=== PATIENT | male | born 1945 | race Caucasian/White ===

== ENCOUNTER 2018-07-17 17:29 | Inpatient (IN) | payer MEDICARE, MEDICAID, SELFPAY ==
[2018-07-17] VITALS (42 sets, daily range): BP systolic 104–192; BP diastolic 61–131; PULSE 73–103; RESP 8–30; TEMP 36.6; O2SAT 92–100
--- NOTE | 2018-07-17 17:35 | ED.GENADUL_ITS ---
Discharge Plan Disposition Patient Disposition: [facility] INPATIENT Condition: Stable Discharge Details Chief Complaint: SOB Clinical Impression: Acute CHF, NSTEMI (non-ST elevated myocardial infarction), Bilateral pleural effusion Admit Date/Time: 07/17/18 22:49 Admit Provider: Jamison Bustamante Attending Provider: Jamison Bustamante Primary Care Provider: Zeina Lizama V ED Provider: Cj Nguyen Discharge Data Discharge Date/Time-TO BE ENTERED AT DEPARTURE: 07/17/18 23:45 Medical Decision Making <Chrissy Stark DO - Last Filed: 07/18/18 19:31> 73-year-old male with a history of asthma, coronary artery disease with OK and one cardiac stent from 2013, tongue carcinoma, pulmonary hypertension who presents the ED with a complaint of dyspnea on exertion and intermittent chest heaviness/pressure over the past 6 days. Admits to some mild substernal chest heaviness at this time. Sent by PCP office for hypoxia of 88% on room air in the office today. Oxygen saturation good since arrival to the ED, 99% on room air. Blood pressure hypertensive 179/103. Patient has not yet taken his metoprolol. He is afebrile. He appears nontoxic. He is speaking in full sentences and has no evidence of respiratory distress. He has no lower extremity edema. Differential diagnosis includes OK, CHF, pneumonia, electrolyte abnormality, arrhythmia. EKG notes a rate of 98, sinus, T wave inversion in 3 and V6 and less than [address] depression in aVF which is been seen in previous. No acute ST elevation. 183 --labs and imaging reviewed. Troponin 0.39. BNP 2275. Chest x-ray notes a worsening and a left-sided pleural effusion as well as blunting of right-sided costophrenic angle. Will call [facility] for NSTEMI/acute CHF. Will give a dose of Lasix and aspirin. He is chest pain free at this time. 184 --discussed with [facility] -no beds available. Will call [facility]. 1854 --d/w [facility] cardiology -recommends admission here for serial troponins. If going to treat for an NSTEMI, recommends heparin bolus and drip. Recommends repeat troponin to see where trending and can transfer if significantly elevated. 1999 --d/w [facility] cardiology - can accept pt for transfer to [facility] but not for 12-[address] Whelan. Agrees with plan for heparin bolus/gtt. Echo 2013 EF 45%. 1999 --case endorsed to Dr. Nguyen to f/u on second troponin and EKG at 9 PM and for final disposition pending these results. Medical Records Medical records reviewed: Yes I reviewed the patient's medical records. Imaging Data Radiologic Study: Radiologist's impression: XR Chest, 2 Views EXAM DATE/TIME: 07/17/2018 5:34 PM FINDINGS: Lungs: Bibasilar opacities with nonvisualization of the hemidiaphragms. Bilateral pleural effusions. Aerated lungs clear of infiltrates. Pleural space: See Lungs Finding. Heart/Mediastinum: Unremarkable. No cardiomegaly. Bones/joints: Dextroscoliosis of the thoracic spine. Degenerative changes within thoracic spine. IMPRESSION: Bilateral pleural effusions. Associated lower lungs infiltrates cannot be ruled out. Likely elevation of the left hemidiaphragm. Stable marked dextroscoliosis of the thoracic spine. Lab Data Lab results reviewed: Yes I reviewed the patient's lab results. ECG Data Attestation: I personally reviewed and interpreted this ECG (s) as follows: Interpretation: Rate of 98, sinus, no acute ST elevation. Questionable less than [address] depression in aVF which is been seen in previous EKG. T wave inversion in 3 and V6 which is been seen in previous. <Cj Nguyen MD - Last Filed: 07/17/18 21:55> Patient signed out to me pending second EKG and troponin. Second EKG continues to have no acute ST changes. Possible transitioning of QRS in the inferior leads from upright to inversion. Patient's vitals are better. Patient chest pain-free here and has not had any chest pain here. He has put out over a liter since receiving Lasix. Second troponin remains indeterminate at 0.44. He is on heparin. Case discussed with hospitalist. He will be in to admit the patient to ICU overnight to be held for transfer to [facility] tomorrow. Lab Data Lab results reviewed: Yes I reviewed the patient's lab results. ECG Data Attestation: I personally reviewed and interpreted this ECG (s) as follows: Prior ECG tracings: available for review Interpretation: Second EKG is sinus rhythm at 78. The for morphology has changed completely which I cannot explain. There are no acute ST changes. There remains nonspecific ST flattening. If anything V3 looks better than earlier tonight. Possible transitioning in the inferior leads as the QRS appears to be getting smaller. HPI <Chrissy Stark, - Last Filed: 07/18/18 19:31> General Mode of arrival: ambulatory . Date/Time Provider Initiated Documentation: 07/17/18 17:33 . Limitations to Documentation: no limitations . Information obtained by: patient . HPI Narrative: Patient is a 73-year-old male with history of coronary artery disease with one coronary artery stent, myocardial infarction in 2013, pulmonary hypertension, tongue carcinoma, asthma who presents to the ED with complaint of dyspnea on exertion for the past 6 days. He admits to intermittent chest heaviness. He states he feels like he cannot take a deep breath. He states he had been taking in more sodium and admits to an 8 pound weight gain over the past week which has improved by 4 pounds after decreasing sodium in his diet. He states his last stress test was 3 years ago and negative. He admits to intermittent hypertension over the past week. He denies any fever and states he has been eating and drinking normally without any nausea or vomiting. He denies any leg pain or swelling, recent travel, recent surgery or coughing. Patient states he is followed by Dr. Mckeon cold meat cook at [facility] and states he has a follow-up appoint with him next week. He was seen by his primary care doctor for the symptoms today and was noted to have an oxygen saturation of 88% on room air in the office and was sent to the ER for further evaluation. They were unable to obtain an EKG in the office today. Related Data Home Medications Medication Instructions Recorded Confirmed B-Complex 1 ea PO DAILY 07/11/12 07/17/18 aspirin 81 mg PO DAILY 07/11/12 07/17/18 lorazepam 0.5 mg PO BID PRN PRN 07/11/12 07/17/18 [place]-Mag 1 ea PO DAILY 04/02/16 07/17/18 [place] Extract (w-zinc) 1 ea PO DAILY 04/02/16 07/17/18 Zyrtec 10 mg PO HS PRN PRN 04/02/16 07/17/18 albuterol sulfate [ProAir HFA] 2 puff INHALATION Q4H PRN PRN 04/02/16 07/17/18 beta carotene 25,000 unit PO DAILY 04/02/16 04/03/16 cholecalciferol (vitamin D3) 1,000 unit PO DAILY 04/02/16 07/17/18 [Vitamin D3] coenzyme [id number] E 1 ea PO DAILY 04/02/16 07/17/18 metoprolol succinate 50 mg PO BID 04/02/16 07/17/18 multivitamin [Multi-Day] 2 ea PO DAILY 04/02/16 07/17/18 nitroglycerin [Nitrostat] 0.4 mg SUBLINGUAL DIRECTED 04/02/16 07/17/18 omega-3 fatty acids-fish oil [Fish 1 ea PO DAILY 04/02/16 07/17/18 Oil] vitamin E 400 unit PO DAILY 04/02/16 07/17/18 acetaminophen [Mapap Extra 500 mg PO PRN PRN 04/03/16 04/03/16 Strength] Allergies Allergy/AdvReac Type Severity Reaction Status Date / Time carvedilol Allergy Unverified 07/17/18 18:07 Review of Systems <Chrissy Stark DO - Last Filed: 07/18/18 19:31> Review of Systems All systems reviewed & are unremarkable except as noted in HPI and below Constitutional Reports as per HPI, Denies chills and Denies fever(s) Eyes Denies blurry vision ENT Denies dizziness, Denies sore throat and Denies throat swelling Cardiovascular Reports chest pain and Reports dyspnea Respiratory Denies cough and Reports dyspnea Gastrointestinal Denies abdominal pain, Denies diarrhea and Denies vomiting Genitourinary Denies hematuria and Denies dysuria Musculoskeletal Denies back pain and Denies numbness Integumentary/Breasts Denies lesions and Denies rash Neurologic Denies dizziness, Denies focal weakness and Denies numbness Allergic/Immunologic Denies throat swelling PFSH <Chrissy Stark DO - Last Filed: 07/18/18 19:31> Medical History Hx of cardiac arrest (Resolved) Hx of tongue cancer (Resolved) Right carotid artery occlusion (Chronic) Hx of intrinsic asthma (Chronic) Hx of atrial flutter (Resolved) HTN (hypertension) (Chronic) CAD S/P percutaneous coronary angioplasty (Chronic) Acute kidney injury (Acute) Elevated troponin (Acute) CHF (congestive heart failure) (Acute) Cardiomyopathy (Acute) Dyspnea on exertion (Acute) Elevated LFTs (Acute) History of tobacco use (Acute) Hyperlipemia (Acute) Left knee pain (Acute) Malignant neoplasm (Acute) Pleural effusion, left (Acute) Anxiety (Chronic) Asthma (Chronic) BPH (benign prostatic hyperplasia) (Chronic) Myocardial infarction (Chronic) Psoriasis (Chronic) Acute myocardial infarction Chronic obstructive lung disease Coronary arteriosclerosis Surgical History History of total right hip arthroplasty (Acute) Colonoscopy - MAC (04/03/16) Coronary Stent EGD - MAC tracheostomy Family History Mother Chronic congestive heart failure Father Personal history of malignant neoplasm Social History Smoking/Tobacco Use Status: Former Tobacco Use Alcohol Intake: former Drug use: Never Substance use type: does not use, former substance user Date of last use: 30 years and crack/cocaine Household members: none Housing: house current occupation: retired [employer] Pets and animals: Yes Do you feel safe at home: Yes Do you feel safe in your relationship?: Yes Exam <Chrissy Stark DO - Last Filed: 07/18/18 19:31> Const General: cooperative, healthy appearing and no acute distress HENMT Head: normal to inspection Face and sinus: normal facial exam Eyes General: appearance normal, both eyes and all related structures EOM: EOM intact bilaterally Neck Neck: normal visual inspection and No submandibular swelling Lymphatic: no lymphadenopathy noted Chest Chest: normal inspection of the chest and no tenderness Resp Effort & Inspection: normal respiratory effort and able to speak in complete sentences Auscultation: diminished lung sounds bilaterally in the lower lung cheung (bases b/l ) Cardio Rate: regular rate Rhythm: regular rhythm GI Inspection: normal to inspection Palpation: soft, not firm, not rigid and nontender Auscultation: normal bowel sounds Skin General skin exam: no rashes or lesions noted Neuro General: alert, awake and oriented x3 Cognition: normal cognition Speech: speech normal Motor: muscle tone normal throughout Sensory Exam: no sensory deficits noted Extrem General: normal to inspection, full ROM, no calf tenderness bilaterally and no edema Psych Appearance: grossly normal Mental Status: mental status grossly normal Speech and Movement: speech and movement normal Affect: normal affect Sign Out <Chrissy Stark DO - Last Filed: 07/18/18 19:31> Sign Out Data: Sign Out Comment: Follow-up on second troponin at 9 PM and final disposition. Last updated by Chrissy Stark DO at 07/17/18 19:46
[2018-07-17 18:14] LABS: Abs Immature Grans 0.01 k/cumm (0.0-0.09); Absolute Basophil Count 0.02 k/cumm (0.0-0.2); Absolute Eosinophil Count 0.11 k/cumm (0.0-0.7); Absolute Lymphocyte Count 0.93 k/cumm (1.2-3.4); Absolute Monocyte Count 0.53 k/cumm (0.11-0.7); Absolute Neutrophil Count 3.61 k/cumm (1.2-6.7); Basophils % 0.4; Eosinophils % 2.1; HCT 51.2 % (40.0-50.0); HGB 16.4 g/dL (13.5-17.5); Immature Grans % 0.2; Lymphocytes % 17.9; Mean Corpuscular Hemoglobin 31.2 pg (27.0-33.0); Mean Corpuscular Volume 97.3 fL (80-95); Monocytes % 10.2; Neutrophils % 69.2; Platelet Count 173 x1000/uL (130-400); RBC 5.26 m/cumm (4.50-6.00); RBC Distribution Width 14.1 % (11.8-14.1); White Blood Cell Count 5.21 k/cumm (4.4-10.8)
--- NOTE | 2018-07-17 18:18 | DI.RAD_ITS ---
SYMPTOM/DIAGNOSIS: DYSPNEA ON EXERTION, ? CHF PA AND LATERAL CHEST: The examination is compared with previous examination of 03/06/13. There are bilateral pleural effusions on today's examination. Pleural effusion was noted on the left on the previous examination. Diaphragm may be elevated today. The lungs are grossly clear. Cardiac size is difficult to determinate due to elevation of the diaphragm. CONCLUSION: Bilateral pleural effusions, etiology uncertain. Correlation requested regarding the possibility of CHF. If the findings do not resolve, additional evaluation with chest CT may be considered.
[2018-07-17] MEDS: Metoprolol 50 MG TAB PO (18:28)
[2018-07-17 18:32] LABS: ALT 74 U/L (12-78); AST 45 U/L (15-37); Alkaline Phosphatase 86 U/L (46-116); BUN 23 mg/dL (7-18); CREATININE 1.34 mg/dL (0.70-1.30); Calcium 9.5 mg/dL (8.5-10.1); Chloride 98 mmol/L (98-107); Glucose 110 mg/dL (70-100); NT-proBNP 2275 pg/mL; Potassium 4.4 mmol/L (3.5-5.1); Sodium 138 mmol/L (136-145); Total Protein 8.1 g/dL (6.4-8.2)
[2018-07-17 18:34] LABS: Troponin I 0.39 ng/mL (0.00-0.06)
[2018-07-17] MEDS: Aspirin 325 MG TAB PO (18:40)
[2018-07-17] MEDS: Furosemide 40 MG/4 ML VIAL IVP (18:40)
--- NOTE | 2018-07-17 18:55 | DI.VRAD_ITS ---
EXAM: XR Chest, 2 Views EXAM DATE/TIME: 07/17/2018 5:34 PM CLINICAL HISTORY: 73 years old, male; Signs and symptoms; Patient HX: Dyspnea on exertion R/O acute disease chf; Additional info: HX head/neck CA TECHNIQUE: Imaging protocol: XR of the chest, 2 views. COMPARISON: CR CHEST 2 VIEWS PA,LAT 03/05/2013 10:57 AM FINDINGS: Lungs: Bibasilar opacities with nonvisualization of the hemidiaphragms. Bilateral pleural effusions. Aerated lungs clear of infiltrates. Pleural space: See Lungs Finding. Heart/Mediastinum: Unremarkable. No cardiomegaly. Bones/joints: Dextroscoliosis of the thoracic spine. Degenerative changes within thoracic spine. IMPRESSION: Bilateral pleural effusions. Associated lower lungs infiltrates cannot be ruled out. Likely elevation of the left hemidiaphragm. Stable marked dextroscoliosis of the thoracic spine. Dictated and Authenticated by: Pato Greenfield MD. Ordering:NABEEL Lowe MD
[2018-07-17] MEDS: Clopidogrel 300 MG TAB PO (19:07)
[2018-07-17 19:28] LABS: INR 0.9 (0.9-1.1); PTT Activated 23.2 sec (21.0-31.4); Prothrombin Time 9.4 sec (9.3-11.0)
[2018-07-17] MEDS: Heparin 5,000 UNITS/ML VIAL 4000 UNITS IV (20:24)
[2018-07-17 21:46] LABS: Troponin I 0.44 ng/mL (0.00-0.06)
--- NOTE | 2018-07-17 22:02 | NUR.NOTE ---
Nursing Note: got pt a meal tray with salad, dandwich chips and water
--- NOTE | 2018-07-17 23:20 | W.PM.HP.N ---
Date of service: 07/17/18 Time of Service: 23:21 Assessment and Plan (1) CHF (congestive heart failure): Current visit: Yes Status: Acute Clinical presentation of CHF with history of mild impairment of LV function on last echocardiogram March 2017. Probably has ischemic cardiomyopathy. No recent symptoms to suggest a new ischemic event but does have indeterminate troponins. ECG with no acute ischemic changes. History does not suggest an infectious etiology for cardiomyopathy. He is on multiple supplements that he has been on for years and I doubt drug related or toxin related cardiomyopathy. He has a past history of atrial flutter with no known recent recurrences, its possible he has had a tachyarrhythmia causing cardiomyopathy. Blood pressure recently elevated but historically has been under good control and hypertensive cardiomyopathy seems unlikely. Doubt he has infiltrative process. Diagnostically will cycle troponins and monitor heart rhythm. Order echocardiogram for tomorrow. Therapeutically will place on full anticoagulation with heparin aspirin and he received a loading dose of clopidogrel. Continue metoprolol at outpatient dose. He received 40 mg of Lasix IV in the ER with good diuretic response. I will plan on re-dosing him again tomorrow morning. Possible transfer to tertiary center depending upon clinical course and troponins. Cardiology consult placed, may end up canceling if he goes to tertiary center. (2) Elevated troponin: Current visit: Yes Status: Acute No anginal symptoms. Unclear if this is because of heart failure or result of heart failure. Management as above. (3) Acute kidney injury: Current visit: Yes Status: Acute I suspect this is prerenal. Check urinalysis. Recheck BUN and creatinine in the morning. (4) CAD S/P percutaneous coronary angioplasty: Current visit: Yes Status: Chronic No anginal symptoms. Reports last stress test about 3 years ago with no indication, per patient report, of reversible ischemia. He does not want to take a statin. I am holding his fish oil to minimize bleeding risk and poor evidence of any efficacy. Management otherwise as above. (5) HTN (hypertension): Current visit: Yes Status: Chronic Elevated on admission to the ER, better after he received Lasix and metoprolol. Follow with current regimen. Depending upon troponin trend and echocardiogram, addition of LANRE inhibitor may be beneficial. (6) Hx of atrial flutter: Current visit: No Status: Resolved No known recurrences. Monitor heart rhythm on telemetry. He is being anticoagulated with heparin because of concern for acute coronary syndrome. (7) Anxiety: Current visit: Yes Status: Chronic I am placing lorazepam on hold for now. Monitor for symptoms. History of Present Illness Chief Complaint: Fatigue, dyspnea with exertion Narrative: Mr. Noland is a 73-year-old man who presented to his primary care provider at the recommendation of his cardiology office at [facility] because of feeling fatigued and short of breath with exertion over the past 5 to 7 days. [address] had an [address] elevation RI in 2012, stenting of single vessel (LAD? RCA? Patient is not sure and records are unavailable at this time). Hospital course at [facility] was complicated by acute congestive heart failure, asystole with cardiac arrest, ventilator associated pneumonia, aspiration pneumonia. He was hospitalized for about 6 weeks and then discharged to rehab facility before returning home. He has had a chronic left pleural effusion since this event. He has a remote history of asthma. His last echocardiogram was in March 2012 at [facility]. (All cardiac studies were done at [facility], followed by Dr. Sweet until he retired. Recently establish care with Dr. Mckeon at [facility]). His echocardiogram showed LVEF of 45%, 2+ mitral insufficiency mild dilatation of the aorta, regional wall motion abnormalities of the posterior, lateral and inferior diaz and a small pleural effusion. He had a stress test about 3 years ago which he reports did not show any evidence of new ischemia. Without any recent fevers chills upper respiratory symptoms, cough, wheeze, chest pain pleuritic or anginal in nature, he noted over the past week a general fatigue and malaise, a little bit of mental foggy feeling and most troublesome over the past few days worsening dyspnea with exertion. He also had gained about 8 pounds over a week which she attributes to increased salt intake. He had decreased his salt intake and dropped about 4 pounds. He never had peripheral edema or orthopnea or PND. He has not slept well the past 2 nights with a general sense of restlessness but not because of shortness of breath or chest pain. He has had no decrease in urinary frequency or volume. No hematuria. No recent travel. No change in any of his prescribed medication or multiple supplements. Reports 2 episodes of gastroenteritis in April each lasting about a week but completely resolved. No recent travel. Former alcohol and cocaine use but it is been many decades since he has used either. Quit smoking in 1992. Unaware of any palpitations. Outpatient notes indicate he had a flutter at the time of his RI, no known recurrence of any dysrhythmias. No known history of thyroid disease. Upon presentation to the emergency room he was in no acute respiratory distress. His oxygen saturations reported from his outpatient office visit were 88%. In the ER somewhat variable with room air oxygen saturation sometimes in the mid 90s sometimes upper 80s, stable in the low 90s to mid 90s on oxygen. His chest x-ray showed bilateral small pleural effusions on a chronic left lower hemithorax opacification. His ECG did not show any changes from 2013. His opponents have been in the indeterminate area and his BNP is elevated. He had an excellent diuretic response to 40 mg of IV Lasix and subjectively felt much better. No dysrhythmias have been captured on the monitor since he has arrived in the ER. Both [facility] and [facility] were contacted by ER for possible transfer but given stability and lack of beds in those facilities he is being admitted here for further diagnostic evaluation and treatment. Review of Systems Review of Systems All systems reviewed & are unremarkable except as noted in HPI and below [facility] Medical History Acute kidney injury (Acute) Elevated troponin (Acute) CHF (congestive heart failure) (Acute) Cardiomyopathy (Acute) Dyspnea on exertion (Acute) Elevated LFTs (Acute) History of tobacco use (Acute) Hyperlipemia (Acute) Left knee pain (Acute) Malignant neoplasm (Acute) Pleural effusion, left (Acute) Anxiety (Chronic) Asthma (Chronic) BPH (benign prostatic hyperplasia) (Chronic) Myocardial infarction (Chronic) Psoriasis (Chronic) Acute myocardial infarction Chronic obstructive lung disease Coronary arteriosclerosis Surgical History History of total right hip arthroplasty (Acute) Colonoscopy - MAC (04/03/16) Coronary Stent EGD - MAC tracheostomy Family History Mother Chronic congestive heart failure Father Personal history of malignant neoplasm Social History Smoking/Tobacco Use Status: Former Tobacco Use Alcohol Intake: former Drug use: Never Substance use type: does not use, former substance user Date of last use: 30 years and crack/cocaine 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 Meds Home Medications Medication Instructions Recorded Confirmed Type aspirin 81 mg PO DAILY 07/11/12 07/17/18 History lorazepam 0.5 mg PO BID PRN PRN 07/11/12 07/17/18 History vit B comp with C-calcium carb 1 ea PO DAILY 07/11/12 07/17/18 History [Gnp B-Complex Tablet] albuterol sulfate [Proair Hfa] 2 puff INHALATION Q4H PRN PRN 04/02/16 07/17/18 History beta carotene 25,000 unit PO DAILY 04/02/16 04/03/16 History calcium carb-magnesium ox,carb 1 ea PO DAILY 04/02/16 07/17/18 History [Sheldon-Mag Tablet Chewable] cetirizine [Zyrtec] 10 mg PO HS PRN PRN 04/02/16 07/17/18 History cholecalciferol (vitamin D3) 1,000 unit PO DAILY 04/02/16 07/17/18 History [Vitamin D3] coenzyme [id number] E 1 ea PO DAILY 04/02/16 07/17/18 History metoprolol succinate 50 mg PO BID 04/02/16 07/17/18 History multivitamin [Multi-Day Vitamins] 2 ea PO DAILY 04/02/16 07/17/18 History nitroglycerin [Nitrostat] 0.4 mg SUBLINGUAL DIRECTED 04/02/16 07/17/18 History omega-3 fatty acids-fish oil [Fish 1 ea PO DAILY 04/02/16 07/17/18 History Oil 1,000 mg Capsule] saw palmto frt xtr-zinc [place] 1 ea PO DAILY 04/02/16 07/17/18 History [Saw [place] Capsule] vitamin E 400 unit PO DAILY 04/02/16 07/17/18 History acetaminophen [Tylenol Extra 500 mg PO PRN PRN 04/03/16 04/03/16 History Strength] Allergies Allergy/AdvReac Type Severity Reaction Status Date / Time carvedilol Allergy Unverified 07/17/18 18:07 Exam Narrative Exam Narrative: Sitting up in bed oxygen on eating a sandwich she is in no acute distress. Sinus rhythm on telemetry, blood pressures have come down into the 120s systolic pulse rate in the 70-80 range SaO2 in the mid 90% range on 2 L. Pupils are equal and reactive extraocular movements are normal. Pharynx has some mild posterior pharyngeal erythema no masses visible. No cervical adenopathy. I do not hear a bruit in either carotid. No supraclavicular adenopathy. At 45 degrees recumbency jugular venous pulsations present at the lower neck. Lungs have absent breath sounds at the left lower lung field, a few crackles at the right base, clear in the upper lung cheung no wheezing or rub. Regular heart rhythm with no S3-S4 or murmur heard. Bowel sounds are active with nontender abdomen and no HJR. Rectal and pelvic exams were not done. Extremities warm with 1+ pulses in both feet. No edema. He has symmetric movement of all extremities. No DTRs at the knees 1+ at the elbows symmetrically. He transfers independently without ataxia. He is oriented x4. Results Chest x-ray with bilateral pleural effusions, chronic opacification left lower hemithorax. EKG sinus rhythm with nonspecific and unchanged ST-T changes in the inferior and lateral leads. Labs : 07/17/18 18:05 07/17/18 18:05 Laboratory Results - last 24 hr 07/17/18 07/17/18 07/17/18 18:05 18:05 18:05 WBC 5.21 RBC 5.26 Hgb 16.4 Hct 51.2 H MCV 97.3 H MCH 31.2 MCHC 32.0 RDW 14.1 Plt Count 173 MPV 10.0 Immature Gran % 0.2 Neutrophils % 69.2 Lymphocytes % 17.9 Monocytes % 10.2 Eosinophils % 2.1 Basophils % 0.4 Absolute Neutrophils 3.61 Absolute Lymphocytes 0.93 L Absolute Monocytes 0.53 Absolute Eosinophils 0.11 Absolute Basophils 0.02 PT 9.4 INR 0.9 APTT 23.2 Sodium 138 Potassium 4.4 Chloride 98 Carbon Dioxide 35.0 H Anion Gap 5.0 BUN 23 H Creatinine 1.34 H Estimated GFR/1.73 m2 52.40 Glucose 110 H Calcium 9.5 Magnesium 2.0 Total Bilirubin 1.0 AST 45 H ALT 74 Alkaline Phosphatase 86 Troponin I 0.39 H* NT-Pro-B Natriuret Pep 2275 H Total Protein 8.1 Albumin 4.0 07/17/18 21:15 WBC RBC Hgb Hct MCV MCH MCHC RDW Plt Count MPV Immature Gran % Neutrophils % Lymphocytes % Monocytes % Eosinophils % Basophils % Absolute Neutrophils Absolute Lymphocytes Absolute Monocytes Absolute Eosinophils Absolute Basophils PT INR APTT Sodium Potassium Chloride Carbon Dioxide Anion Gap BUN Creatinine Estimated GFR/1.73 m2 Glucose Calcium Magnesium Total Bilirubin AST ALT Alkaline Phosphatase Troponin I 0.44 H* NT-Pro-B Natriuret Pep Total Protein Albumin Last Vital Signs Temp 36.6 C 07/17/18 17:36 Pulse 79 07/17/18 21:30 Resp 14 07/17/18 21:31 BP 157/89 H 07/17/18 21:30 Pulse Ox 100 07/17/18 21:31
--- NOTE | 2018-07-17 23:54 | HPE_ITS ---
Date of service: 07/17/18 Time of Service: 23:21 Assessment and Plan (1) CHF (congestive heart failure): Current visit: Yes Status: Acute Clinical presentation of CHF with history of mild impairment of LV func tion on last echocardiogram March 2017. Probably has ischemic cardiomyopathy. No recent symptoms to suggest a new ischemic event but does have indeterminate troponins. ECG with no acute ischemic changes. History does not suggest an infectious etiology for cardiomyopathy. He is on multiple supplements that he has been on for years and I doubt drug related or toxin related cardiomyopathy. He has a past history of atrial flutter with no known recent recurrences, its possible he has had a tachyarrhythmia causing cardiomyopathy. Blood pressure recently elevated but historically has been under good control and hypertensive cardiomyopathy seems unlikely. Doubt he has infiltrative process. Diagnostically will cycle troponins and monitor heart rhythm. Order echocardiogram for tomorrow. Therapeutically will place on full anticoagulation with heparin aspirin and he received a loading dose of clopidogrel. Continue metoprolol at outpatient dose. He received 40 mg of Lasix IV in the ER with good diuretic response. I will plan on re-dosing him again tomorrow morning. Possible transfer to tertiary center depending upon clinical course and troponins. Cardiology consult placed, may end up canceling if he goes to tertiary center. (2) Elevated troponin: Current visit: Yes Status: Acute No anginal symptoms. Unclear if this is because of heart failure or result of heart failure. Management as above. (3) Acute kidney injury: Current visit: Yes Status: Acute I suspect this is prerenal. Check urinalysis. Recheck BUN and creatinine in the morning. (4) CAD S/P percutaneous coronary angioplasty: Current visit: Yes Status: Chronic No anginal symptoms. Reports last stress test about 3 years ago with no indication, per patient report, of reversible ischemia. He does not want to take a statin. I am holding his fish oil to minimize bleeding risk and poor evidence of any efficacy. Management otherwise as above. (5) HTN (hypertension): Current visit: Yes Status: Chronic Elevated on admission to the ER, better after he received Lasix and metoprolol. Follow with current regimen. Depending upon troponin trend and echocardiogram, addition of LANRE inhibitor may be beneficial. (6) Hx of atrial flutter: Current visit: No Status: Resolved No known recurrences. Monitor heart rhythm on telemetry. He is being anticoagulated with heparin because of concern for acute coronary syndrome. (7) Anxiety: Current visit: Yes Status: Chronic I am placing lorazepam on hold for now. Monitor for symptoms. History of Present Illness Chief Complaint: Fatigue, dyspnea with exertion Narrative: Mr. Noland is a 73-year-old man who presented to his primary care provider at the recommendation of his cardiology office at [facility] because of feeling fatigued and short of breath with exertion over the past 5 to 7 days. [address] had an [address] elevation [place] in 2012, stenting of single vessel (LAD? RCA? Patient is not sure and records are unavailable at this time). Hospital course at [facility] was complicated by acute congestive heart failure, asystole with cardiac arrest, ventilator associated pneumonia, aspiration pneumonia. He was hospitalized for about 6 weeks and then discharged to rehab facility before returning home. He has had a chronic left pleural effusion since this event. He has a remote history of asthma. His last echocardiogram was in March 2012 at [facility]. (All cardiac studies were done at [facility], followed by Dr. Sweet until he retired. Recently establish care with Dr. Mckeon at [facility]). His echocardiogram showed LVEF of 45%, 2+ mitral insufficiency mild dilatation of t he aorta, regional wall motion abnormalities of the posterior, lateral and inferior diaz and a small pleural effusion. He had a stress test about 3 years ago which he reports did not show any evidence of new ischemia. Without any recent fevers chills upper respiratory symptoms, cough, wheeze, malachi st pain pleuritic or anginal in nature, he noted over the past week a general fatigue and malaise, a little bit of mental foggy feeling and most troublesome over the past few days worsening dyspnea with exertion. He also had gained about 8 pounds over a week which she attributes to increased salt intake. He had decreased his salt intake and dropped about 4 pounds. He never had peripheral edema or orthopnea or PND. He has not slept well the past 2 nights with a general sense of restlessness but not because of shortness of breath or chest pain. He has had no decrease in urinary frequency or volume. No hematuria. No recent travel. No change in any of his prescribed medication or multiple supplements. Reports 2 episodes of gastroenteritis in April each lasting about a week but completely resolved. No recent travel. Former alcohol and cocaine use but it is been many decades since he has used either. Quit smoking in 1992. Unaware of any palpitations. Outpatient notes indicate he had a flutter at the time of his DE, no known recurrence of any dysrhythmias. No known history of thyroid disease. Upon presentation to the emergency room he was in no acute respiratory distress. His oxygen saturations reported from his outpatient office visit were 88%. In the ER somewhat variable with room air oxygen saturation sometimes in the mid 90s sometimes upper 80s, stable in the low 90s to mid 90s on oxygen. His chest x-ray showed bilateral small pleural effusions on a chronic left lower hemithorax opacification. His ECG did not show any changes from 2013. His opponents have been in the indeterminate area and his BNP is elevated. He had an excellent diuretic response to 40 mg of IV Lasix and subjectively felt much better. No dysrhythmias have been captured on the monitor since he has arrived in the ER. Both [facility] and [facility] were contacted by ER for possible transfer but given stability and lack of beds in those facilities he is being admitted here for further diagnostic evaluation and treatment. Review of Systems Review of Systems All systems reviewed & are unremarkable except as noted in HPI and below PFSH Medical History Acute kidney injury (Acute) Elevated troponin (Acute) CHF (congestive heart failure) (Acute) Cardiomyopathy (Acute) Dyspnea on exertion (Acute) Elevated LFTs (Acute) History of tobacco use (Acute) Hyperlipemia (Acute) Left knee pain (Acute) Malignant neoplasm (Acute) Pleural effusion, left (Acute) Anxiety (Chronic) Asthma (Chronic) BPH (benign prostatic hyperplasia) (Chronic) Myocardial infarction (Chronic) Psoriasis (Chronic) Acute myocardial infarction Chronic obstructive lung disease Coronary arteriosclerosis Surgical History History of total right hip arthroplasty (Acute) Colonoscopy - MAC (04/03/16) Coronary Stent EGD - MAC tracheostomy Family History Mother Chronic congestive heart failure Father Personal history of malignant neoplasm Social History Smoking/Tobacco Use Status: Former Tobacco Use Alcohol Intake: former Drug use: Never Substance use type: does not use, former substance user Date of last use: 30 years and crack/cocaine 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 Meds Home Medications Medication Instructions Recorded Confirmed Type aspirin 81 mg PO DAILY 07/11/12 07/17/18 History lorazepam 0.5 mg PO BID PRN PRN 07/11/12 07/17/18 History vit B comp with C-calcium carb 1 ea PO DAILY 07/11/12 07/17/18 History [Gnp B-Complex Tablet] albuterol sulfate [Proair Hfa] 2 puff INHALATION Q4H PRN PRN 04/02/16 07/17/18 History beta carotene 25,000 unit PO DAILY 04/02/16 04/03/16 History calcium carb-magnesium ox,carb 1 ea PO DAILY 04/02/16 07/17/18 History [Sheldon-Mag Tablet Chewable] cetirizine [Zyrtec] 10 mg PO HS PRN PRN 04/02/16 07/17/18 History cholecalciferol (vitamin D3) 1,000 unit PO DAILY 04/02/16 07/17/18 History [Vitamin D3] coenzyme [id number] 1 ea PO DAILY 04/02/16 07/17/18 History metoprolol succinate 50 mg PO BID 04/02/16 07/17/18 History multivitamin [Multi-Day Vitamins] 2 ea PO DAILY 04/02/16 07/17/18 History nitroglycerin [Nitrostat] 0.4 mg SUBLINGUAL DIRECTED 04/02/16 07/17/18 History omega-3 fatty acids-fish oil [Fish 1 ea PO DAILY 04/02/16 07/17/18 History Oil 1,000 mg Capsule] saw palmto frt xtr-zinc [place] 1 ea PO DAILY 04/02/16 07/17/18 History [Saw [place] Capsule] vitamin E 400 unit PO DAILY 04/02/16 07/17/18 History acetaminophen [Tylenol Extra 500 mg PO PRN PRN 04/03/16 04/03/16 History Strength] Allergies Allergy/AdvReac Type Severity Reaction Status Date / Time carvedilol Allergy Unverified 07/17/18 18:07 Exam Narrative Exam Narrative: Sitting up in bed oxygen on eating a sandwich she is in no acute distress. Sinus rhythm on telemetry, blood pressures have come down into the 120s systolic pulse rate in the 70-80 range SaO2 in the mid 90% range on 2 L. Pupils are equal and reactive extraocular movements are normal. Pharynx has some mild posterior pharyngeal erythema no masses visible. No cervical adenopathy. I do not hear a bruit in either carotid. No supraclavicular adenopathy. At 45 degrees recumbency jugular venous pulsations present at the lower neck. Lungs have absent breath sounds at the left lower lung field, a few crackles at the right base, clear in the upper lung cheung no wheezing or rub. Regular heart rhythm with no S3-S4 or murmur heard. Bowel sounds are active with nontender abdomen and no HJR. Rectal and pelvic exams were not done. Extremities warm with 1+ pulses in both feet. No edema. He has symmetric movem ent of all extremities. No DTRs at the knees 1+ at the elbows symmetrically. He transfers independently without ataxia. He is oriented x4. Results Chest x-ray with bilateral pleural effusions, chronic opacification left lower hemithorax. EKG sinus rhythm with nonspecific and unchanged ST-T changes in the inferior and lateral leads. Labs : 07/17/18 18:05 07/17/18 18:05 Laboratory Results - last 24 hr 07/17/18 07/17/18 07/17/18 18:05 18:05 18:05 WBC 5.21 RBC 5.26 Hgb 16.4 Hct 51.2 H MCV 97.3 H MCH 31.2 MCHC 32.0 RDW 14.1 Plt Count 173 MPV 10.0 Immature Gran % 0.2 Neutrophils % 69.2 Lymphocytes % 17.9 Monocytes % 10.2 Eosinophils % 2.1 Basophils % 0.4 Absolute Neutrophils 3.61 Absolute Lymphocytes 0.93 L Absolute Monocytes 0.53 Absolute Eosinophils 0.11 Absolute Basophils 0.02 PT 9.4 INR 0.9 APTT 23.2 Sodium 138 Potassium 4.4 Chloride 98 Carbon Dioxide 35.0 H Anion Gap 5.0 BUN 23 H Creatinine 1.34 H Estimated GFR/1.73 m2 52.40 Glucose 110 H Calcium 9.5 Magnesium 2.0 Total Bilirubin 1.0 AST 45 H ALT 74 Alkaline Phosphatase 86 Troponin I 0.39 H* NT-Pro-B Natriuret Pep 2275 H Total Protein 8.1 Albumin 4.0 07/17/18 21:15 WBC RBC Hgb Hct MCV MCH MCHC RDW Plt Count MPV Immature Gran % Neutrophils % Lymphocytes % Monocytes % Eosinophils % Basophils % Absolute Neutrophils Absolute Lymphocytes Absolute Monocytes Absolute Eosinophils Absolute Basophils PT INR APTT Sodium Potassium Chloride Carbon Dioxide Anion Gap BUN Creatinine Estimated GFR/1.73 m2 Glucose Calcium Magnesium Total Bilirubin AST ALT Alkaline Phosphatase Troponin I 0.44 H* NT-Pro-B Natriuret Pep Total Protein Albumin Last Vital Signs Temp 36.6 C 07/17/18 17:36 Pulse 79 07/17/18 21:30 Resp 14 07/17/18 21:31 BP 157/89 H 07/17/18 21:30 Pulse Ox 100 07/17/18 21:31
[2018-07-18] VITALS (26 sets, daily range): BP systolic 92–158; BP diastolic 56–85; PULSE 54–95; RESP 9–19; TEMP 36.9–37.4; O2SAT 84–99
[2018-07-18 02:34] LABS: PTT Activated 51.1 sec (21.0-31.4)
[2018-07-18 02:38] LABS: Troponin I 0.44 ng/mL (0.00-0.06)
[2018-07-18 07:03] LABS: HCT 46.3 % (40.0-50.0); HGB 14.8 g/dL (13.5-17.5); Mean Corpuscular Hemoglobin 31.4 pg (27.0-33.0); Mean Corpuscular Volume 98.1 fL (80-95); Platelet Count 162 x1000/uL (130-400); RBC 4.72 m/cumm (4.50-6.00); RBC Distribution Width 14.2 % (11.8-14.1); White Blood Cell Count 3.99 k/cumm (4.4-10.8)
--- NOTE | 2018-07-18 07:30 | MERGE_ITS ---
*[facility]* *[facility]* [address] [place] [address] Date of study: 07/18/2018 Transthoracic Echocardiography M-mode, complete 2D, complete spectral Doppler, and color Doppler *STUDY CONCLUSIONS* Summary: 1. Left ventricle: The cavity size was dilated. Wall thickness was normal. Systolic function was severely reduced. The estimated ejection fraction was 20-25%. Severe diffuse hypokinesis with regional variations. Akinesis of the inferolateral and inferior myocardium. 2. Right ventricle: The cavity size was mildly dilated. Systolic function was reduced. 3. Left atrium: The atrium was mildly dilated. 4. Mitral valve: There was moderate regurgitation. 5. Tricuspid valve: There was moderate regurgitation. 6. Pulmonary arteries: Pulmonary systolic pressure was increased, in the range of 50mm Hg to 55mm Hg. 7. Inferior vena cava: The vessel was patent and mildly dilated. The respirophasic diameter changes were in the normal range (greater than or equal to 50%), consistent with normal central venous pressure. 8. Pericardium, extracardiac: There was a right pleural effusion. There was a left pleural effusion. *PATIENT PRESENTATION* Height: 180.3cm ((71in) ) S/D Pressure: 110 / 69 Weight: 86.6kg ((190.6lb) ) BSA: 2.1m^2 Test start time: 07:40 AM. Test stop time: 08:40 AM. 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 This study was interpreted by [facility]. Pertinent images and digital data are archived for permanent storage and are available for subsequent review. No prior study was available for comparison. Study status: STAT. Transthoracic echocardiography. M-mode, complete 2D, complete spectral Doppler, and color Doppler. A Transthoracic Echocardiogram was performed. Scanning was performed from the parasternal, apical, subcostal, and suprasternal notch acoustic windows. Images were obtained using an [id number] cardiac ultrasound machine. Image quality was adequate. Study completion: The patient tolerated the procedure well. There were no complications. History: PMH: New onset CHF. *CARDIAC ANATOMY* Left ventricle: The cavity size was dilated. Wall thickness was normal. Systolic function was severely reduced. The estimated ejection fraction was 20-25%. Severe diffuse hypokinesis with regional variations. Regional wall motion abnormalities: Akinesis of the inferolateral and inferior myocardium. Aortic valve: Trileaflet; mildly thickened, mildly calcified leaflets. Mobility was not restricted. Doppler: Transvalvular velocity was within the normal range. There was no stenosis. There was no significant regurgitation. VTI ratio of LVOT to aortic valve: 0.81. Valve area (VTI): 2.4cm^2. Indexed valve area (VTI): 1.1cm^2/m^2. Peak velocity ratio of LVOT to aortic valve: 0.72. Valve area (Vmax): 2.1cm^2. Indexed valve area (Vmax): 1cm^2/m^2. Mean velocity ratio of LVOT to aortic valve: 0.74. Valve area (Vmean): 2.1cm^2. Indexed valve area (Vmean): 1cm^2/m^2. Mean gradient (S): 4.1mm Hg. Peak gradient (S): 7mm Hg. Aorta: Aortic root: The aortic root was normal in size. Ascending aorta: The ascending aorta was mildly dilated (41 mm). Mitral valve: Mildly thickened leaflets. Mobility was not restricted. Doppler: Transvalvular velocity was within the normal range. There was no evidence for stenosis. There was moderate regurgitation. Valve area by pressure half-time: 4.9cm^2. Indexed valve area by pressure half-time: 2.3cm^2/m^2. Peak gradient (D): 2.9mm Hg. Left atrium: The atrium was mildly dilated. Right ventricle: The cavity size was mildly dilated. Systolic function was reduced. Pulmonic valve: The pulmonary valve appears to be grossly normal. Doppler: Transvalvular velocity was within the normal range. There was no evidence for stenosis. There was mild regurgitation. Tricuspid valve: Structurally normal valve. Doppler: Transvalvular velocity was within the normal range. There was no evidence for stenosis. There was moderate regurgitation. Pulmonary artery: Poorly visualized. Pulmonary systolic pressure was increased, in the range of 50mm Hg to 55mm Hg. Right atrium: The atrium was normal in size. Pericardium: There was no significant pericardial effusion. Systemic veins: Inferior vena cava: Well visualized. The vessel was patent and mildly dilated. The respirophasic diameter changes were in the normal range (greater than or equal to 50%), consistent with normal central venous pressure. Pleura: There was a right pleural effusion. There was a left pleural effusion. Baseline ECG: Normal sinus rhythm. Measurements Left ventricle Value Reference LV ID, ED, PLAX (H) 6.2 cm 3.5 - 6.0 LV ID, ES, PLAX (H) 5.5 cm 2.1 - 4.0 LV PW thickness, ED, PLAX 0.7 cm LV end-diastolic volume, 1-p A2C 146 ml LV ejection fraction, 1-p A2C 18 % LV end-diastolic volume, 1-p A4C 138 ml LV ejection fraction, 1-p A4C 21 % LV e', lateral 0.084 m/sec LV E/e', lateral 10 LV e', medial 0.069 m/sec LV E/e', medial 12 LV e', average 0.077 m/sec LV E/e', average 11 Ventricular septum Value Reference IVS thickness, ED, PLAX 1.2 cm LVOT Value Reference LVOT ID, A-P 1.9 cm LVOT area 2.9 cm^2 LVOT peak velocity, S 0.95 m/sec LVOT mean velocity, S 0.72 m/sec LVOT VTI, S 20.3 cm LVOT peak gradient, S 3.6 mm Hg LVOT mean gradient, S 2.3 mm Hg Stroke volume (SV), LVOT DP 59 ml Stroke index (SV/bsa), LVOT DP 28 ml/m^2 Aortic valve Value Reference Aortic valve peak velocity, S 1.3 m/sec Aortic valve mean velocity, S 0.98 m/sec Aortic valve VTI, S 25.0 cm Aortic mean gradient, S 4.1 mm Hg Aortic peak gradient, S 7 mm Hg VTI ratio, LVOT/AV 0.81 Aortic valve area, VTI 2.4 cm^2 Velocity ratio, peak, LVOT/AV 0.72 Aortic valve area, peak velocity 2.1 cm^2 Velocity ratio, mean, LVOT/AV 0.74 Aortic valve area, mean velocity 2.1 cm^2 Aortic valve area/bsa, mean velocity 1 cm^2/m^2 Aorta Value Reference Aortic root ID, ED 3.1 cm Ascending aorta ID, A-P, S 4.1 cm Left atrium Value Reference LA ID, A-P, ES 2.5 cm LA ID/bsa, A-P 1.2 cm/m^2 <=2.2 LA area, ES, A4C 22.1 cm^2 8.8 - 23.4 LA area, ES, A2C 19 cm^2 LA volume/bsa, ES, 1-p A4C 34 ml/m^2 LA volume, ES, 2-p 60 ml LA volume/bsa, ES, 2-p 29 ml/m^2 LA/aortic root ratio 0.8 Mitral valve Value Reference Mitral E-wave peak velocity 0.85 m/sec Mitral A-wave peak velocity 0.97 m/sec Mitral deceleration time 154 ms 150 - 230 Mitral pressure half-time 45 ms Mitral peak gradient, D 2.9 mm Hg Mitral E/A ratio, peak 0.87 Mitral valve area, PHT, DP 4.9 cm^2 Pulmonary veins Value Reference Pulmonary vein peak velocity, S 0.31 m/sec Pulmonary vein peak velocity, D 0.68 m/sec Pulmonary vein velocity ratio, peak, 0.46 S/D Tricuspid valve Value Reference Tricuspid regurg peak velocity 3.4 m/sec Tricuspid peak RV-RA gradient 46.8 mm Hg Right atrium Value Reference RA area, ES, A4C 17.7 cm^2 8.3 - 19.5 Pulmonic valve Value Reference Pulmonic regurg velocity, ED 1.78 m/sec Pulmonic regurg gradient, ED 13 mm Hg Legend: (L) and (H) cnorad values outside specified reference range. I have personally reviewed the images and have reviewed and edited the reported findings. Electronically signed by Noel Jack 07/18/2018 12:17
[2018-07-18 07:36] LABS: Anion Gap 3.5 mmol/L (3-11); BUN 24 mg/dL (7-18); CO2 36.5 mmol/L (21.0-32.0); CREATININE 1.41 mg/dL (0.70-1.30); Calcium 8.9 mg/dL (8.5-10.1); Chloride 102 mmol/L (98-107); Cholesterol 166 mg/dL (50-200); Estimated GFR 49.41 (mL/min/1.73m2); Glucose 84 mg/dL (70-100); HDL Cholesterol 68 mg/dL (40-60); LDL CHOLESTEROL 96 mg/dL (<100); Potassium 4.1 mmol/L (3.5-5.1); Sodium 142 mmol/L (136-145); TSH 3.45 uIU/mL (0.358-3.74); Triglyceride 38 mg/dL (30-150)
[2018-07-18 07:37] LABS: Troponin I 0.39 ng/mL (0.00-0.06)
--- NOTE | 2018-07-18 08:11 | PDOC.CMIN ---
- If Service Date Differs Date of service: 07/18/18 Time of Service: 08:11 Care Management Initial Assess REASON FOR HOSPITALIZATION:: CHF PAST MEDICAL HISTORY/PAST SURGICAL HISTORY:: Medical History: Acute kidney injury, Elevated troponin, CHF (congestive heart failure). Cardiomyopathy, Dyspnea on exertion, Elevated LFTs, History of tobacco use. Hyperlipemia, Left knee pain, Malignant neoplasm,Pleural effusion, left,. Anxiety, Asthma, BPH (benign prostatic hyperplasia),Myocardial infarction. Psoriasis, Acute myocardial infarction, Chronic obstructive lung disease. Coronary arteriosclerosis. Surgical History: History of total right hip arthroplasty (Acute). Colonoscopy - MAC (04/03/16). Coronary Stent. EGD - MAC. tracheostomy PREVIOUS FUNCTIONAL STATUS/SOCIAL/FAMILY SUPPORTS:: Gustavo lives alone with his dog in a single family home in [place]. It is on 2 levels and he accesses both levels on a frequent basis. 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 Gustavo is independent with ADLs , driving etc. He has 2 children that are estranged. He has one close friend and a good neighbor next door for support. CURRENT FUNCTIONAL STATUS:: Gustavo was sitting up in bed during CM visit. When CM entered the room, he announced that he was grumpy, although he was pleasant and cooperative during assessment. His friend Raffaele was visiting at the time as well.Gustavo recounted some of his recent medical history and discussed his interests and past times. ADVANCE DIRECTIVES:: None on file at [facility]. provided him with a copy of the [place] Advanced Directive forms. Has patient been provided with information about the portal?: Yes Did the patient sign up for the portal?: No CODE STATUS:: Full Code INSURANCE COVERAGE / FINANCIAL ISSUES:: Medicare. Medicaid CURRENT HOME/COMMUNITY SERVICES/EQUIPMENT:: None currently PRIMARY CARE PHYSICIAN:: Zeina Lizama POTENTIAL DISCHARGE NEEDS:: Follow up with PCP, Call Centre Supervisor and plan of care. PATIENT/FAMILY EDUCATION NEEDS:: Discharge plan, limitations, follow up plan and Ask Me Three ANTICIPATED BARRIERS TO DISCHARGE:: none identified TRANSPORTATION:: via private automobile with friend at time of discharge. PLAN:: Gustavo is undergoing testing and treatment for CHF. It is anticipated that he will return home with no services at time of discharge. CM will continue to provide support to patient, friends and care team and discharge planning.
[2018-07-18] MEDS: Metoprolol CR 50 MG TABCR PO (08:46)
[2018-07-18] MEDS: Multivitamin TAB 1 TAB PO (08:46)
[2018-07-18] MEDS: Normal Saline Flush 10 ML SYR IVP (08:46)
[2018-07-18] MEDS: Aspirin 81 MG CHEW PO (08:46)
[2018-07-18] MEDS: Furosemide 40 MG/4 ML VIAL IVP (08:47)
[2018-07-18 10:20] LABS: Bilirubin Negative (Negative); Blood Negative (Negative); Clarity Clear; Glucose Negative (Negative); Ketones Negative (Negative); Leukocyte Esterase Negative (Negative); Nitrite Negative (Negative); Urobilinogen 0.2 EU/dL (Up TO 0.2)
--- NOTE | 2018-07-18 10:31 | PHARADMIT ---
Admission Pharmacy Clinical Review CHF, indeterminant troponin, HTN Code Status Full Code Current Weight 82.5 kg Renally Cleared and Narrow Therapeutic Index Meds Crcl ~50.0 mL/min current meds okay QTc Value / Action Taken QTc 410 BP Control, Fever BP 110/74 afebrile Electrolytes reviewed within normal limits DVT Prophylaxis heparin drip right now Opiate Usage / Scheduled Bowel Regimen Ordered no/prn Plt/SCr for Heparin / Enoxaparin plt 162 SCr 1.41 INR for Warfarin n/a H/H stable, WBC/Bands h/h 14.8/46.3 wbc 3.99 Antibiotic appropriateness none Cultures and Sensitivities none Surgical ABX d/c within 24 hr n/a DM control / Insulin Dosing BG 84 none Heart Failure (Check EF%) (LANRE's, B-Block, Diuretics) furosemide, metoprolol IV to PO Switch n/a Home Meds Reviewed -multiple sources of vitamin D may increase the risks of adverse/toxic effects -separate admin of calcium/magnesium from multivitamin Home Meds Not Ordered beta carotene, calcium/magnesium, cetirizine, co Q-10, lorazepam, nitroglycerin, omega-3 FAs, saw sheri, vitamin B complex w/C, vitamin E Comments pt feeling betting after diuresis per morning report ECHO today
[2018-07-18 10:40] LABS: Bacteria Negative HPF (Negative); C & S Indicated? No; Casts Negative LPF (Negative); Crystals Negative HPF (Negative); Epithelial Cells Negative HPF (Negative); Mucus Negative (Negative); Other Cells Negative (Negative); RBC 0-2 (0-2); WBC 0-2 HPF (0-5)
--- NOTE | 2018-07-18 11:45 | W.PM.PROGNOT ---
Date of Service Date of service: 07/18/18 Time of Service: 11:45 Assessment and Plan (1) CHF (congestive heart failure): Current visit: Yes Status: Acute ECHO with drop in LVEF to 20-25% and reduced RV function. Moderate MR was again noted. PAP's in the 50's, with moderate TR. (2) Elevated troponin: Current visit: Yes Status: Acute Mildly elevated Troponin in setting of acute exacerbation of CHF and MARIIA, likely represents demand ischemia with poor clearance. Doubt ACS. (3) Acute kidney injury: Current visit: Yes Status: Acute Mildly worse following diuresis this morning. Continue to monitor closely as patient requires further diuresis (4) CAD S/P percutaneous coronary angioplasty: Current visit: Yes Status: Chronic (5) HTN (hypertension): Current visit: Yes Status: Chronic (6) Hx of atrial flutter: Current visit: No Status: Resolved (7) Right carotid artery occlusion: Current visit: No Status: Chronic (8) DVT prophylaxis: Current visit: Yes Status: Acute Subjective Interval history since last seen: 73-year-old man with a past medical history significant for CHF, admitted from [facility] Emergency Department with a diagnosis of CHF Exacerbation. Mr. Noland has a prior medical history significant for CAD with a prior history of STEMI in 2013, hospitalized at [facility], s/p [facility] with intervention and single vessel stenting (unsure of vessel). His hospitalization was further complicated by development of acute decompensated CHF, cardiac arrest, and Ventilator Associated Pneumonia/Aspiration Pneumonia requiring an approximately 6 week hospital course. He has had a chronic left pleural effusion since that time. 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 The patient previously followed with Dr. Dolan of [facility] until his mcc, and then switched his care to Dr. Mckeon at [facility]. He reports a stress test approximately 3 years ago that showed no evidence of new ischemia. The patient presented to the ED from his primary's office with complaints of generalized fatigue and worsening MINLER over the prior few days. He reported a concurrent 8 pound weight gain, and attributes this to increased salt intake. He denied any peripheral edema, orthopnea, or PND. He also reported poor sleep recently, but not because of dyspnea. Work-up in the ED was significant for mild hypoxia, bilateral pleural effusions (with chronicity to the left), elevated BNP, MARIIA, and mildly elevated Troponin. The patient was referred for admission for further evaluation and treatment. Mr. Noland responded very well to initial attempt at diuresis. He breathing feels better, although he is not back at his baseline. He is also still requiring supplemental oxygen. His ECHO was performed and shows a drop in LVEF of 20-25%, severe diffuse hypokinesis with regional variations. No overnight events reported. Remains afebrile. Exam Narrative Exam Narrative: General: Patient appears comfortable, AAOX3, NAD Neck: Supple CV: Regular, nontachycardic, S1S2, No rubs, murmurs, or gallops. Pulmonary: Mild right basilar crackles. Left base breath sounds decreased with concurrent crackles. Abdomen: + Bowel Sounds, soft, nontender, nondistended Vascular: No lower extremity edema Psych: Normal mood and affect. Objective Objective Clinical Data: Abnormal lab results 07/17/18 07/17/18 07/17/18 Range/Units 18:05 18:05 21:15 WBC (4.4-10.8) k/cumm Hct 51.2 H (40.0-50.0) % MCV 97.3 H (80-95) fL RDW (11.8-14.1) % Absolute Lymphocytes 0.93 L (1.2-3.4) k/cumm APTT (21.0-31.4) sec Carbon Dioxide 35.0 H (21.0-32.0) mmol/L BUN 23 H (7-18) mg/dL Creatinine 1.34 H (0.70-1.30) mg/dL Glucose 110 H (70-100) mg/dL AST 45 H (15-37) U/L Troponin I 0.39 H* 0.44 H* (0.00-0.06) ng/mL NT-Pro-B Natriuret Pep 2275 H ( - 299) pg/mL HDL Cholesterol (40-60) mg/dL Urine Protein (Negative) mg/dL 07/18/18 07/18/18 07/18/18 Range/Units 02:15 02:15 06:10 WBC (4.4-10.8) k/cumm Hct (40.0-50.0) % MCV (80-95) fL RDW (11.8-14.1) % Absolute Lymphocytes (1.2-3.4) k/cumm APTT 51.1 H D (21.0-31.4) sec Carbon Dioxide 36.5 H (21.0-32.0) mmol/L BUN 24 H (7-18) mg/dL Creatinine 1.41 H (0.70-1.30) mg/dL Glucose (70-100) mg/dL AST (15-37) U/L Troponin I 0.44 H* (0.00-0.06) ng/mL NT-Pro-B Natriuret Pep ( - 299) pg/mL HDL Cholesterol 68 H (40-60) mg/dL Urine Protein (Negative) mg/dL 07/18/18 07/18/18 07/18/18 Range/Units 06:10 06:10 07:00 WBC 3.99 L (4.4-10.8) k/cumm Hct (40.0-50.0) % MCV 98.1 H (80-95) fL RDW 14.2 H (11.8-14.1) % Absolute Lymphocytes (1.2-3.4) k/cumm APTT (21.0-31.4) sec Carbon Dioxide (21.0-32.0) mmol/L BUN (7-18) mg/dL Creatinine (0.70-1.30) mg/dL Glucose (70-100) mg/dL AST (15-37) U/L Troponin I 0.39 H* (0.00-0.06) ng/mL NT-Pro-B Natriuret Pep ( - 299) pg/mL HDL Cholesterol (40-60) mg/dL Urine Protein Trace H (Negative) mg/dL Vital Signs Temperature 37.4 C 07/18/18 11:23 Temperature Source Temporal Artery Scan 07/18/18 11:23 Pulse 72 07/18/18 11:12 Pulse 74 07/18/18 11:12 Respiratory Rate 19 07/18/18 11:12 Respiratory Effort Short of Breath 07/18/18 11:23 Respiratory Depth Normal 07/18/18 11:23 Respiratory Pattern Normal 07/18/18 11:23 Blood Pressure 101/62 07/18/18 11:12 Blood Pressure Mean 72 07/18/18 11:12 Blood Pressure Position Sitting 07/18/18 00:05 Pulse Oximetry 97 07/18/18 11:23 Oxygen Delivery Method Nasal Cannula 07/18/18 11:23 Oxygen Flow Rate 1 07/18/18 11:23 Pain Level 0 07/18/18 11:23 Intake & Output 07/17/18 07/17/18 07/18/18 11:59 23:59 11:59 Intake Total 125 / 125 885.833 / 885.833 Output Total 1500 / 1500 1275 / 1275 Balance -1375 / -1375 -389.167 / -389.167 Weight 86.7 kg 82.5 kg Intake: IV 75.833 / 75.833 Oral 125 / 125 810 / 810 Output: Urine 1500 / 1500 1275 / 1275 Other: Urine Color Yellow Urine Appearance Clear Urine Odor None Comment UA SENT. Voiding Methods Urinal # Voids 1 Laboratory Results WBC 3.99 k/cumm (4.4-10.8) L 07/18/18 06:10 RBC 4.72 m/cumm (4.50-6.00) 07/18/18 06:10 Hgb 14.8 g/dL (13.5-17.5) 07/18/18 06:10 Hct 46.3 % (40.0-50.0) 07/18/18 06:10 MCV 98.1 fL (80-95) H 07/18/18 06:10 MCH 31.4 pg (27.0-33.0) 07/18/18 06:10 MCHC 32.0 g/dL (32.0-36.0) 07/18/18 06:10 RDW 14.2 % (11.8-14.1) H 07/18/18 06:10 Plt Count 162 x1000/uL (130-400) 07/18/18 06:10 MPV 10.0 fL (8.0-11.0) 07/18/18 06:10 Immature Gran % 0.2 07/17/18 18:05 Neutrophils % 69.2 07/17/18 18:05 Lymphocytes % 17.9 07/17/18 18:05 Monocytes % 10.2 07/17/18 18:05 Eosinophils % 2.1 07/17/18 18:05 Basophils % 0.4 07/17/18 18:05 Absolute Neutrophils 3.61 k/cumm (1.2-6.7) 07/17/18 18:05 Absolute Lymphocytes 0.93 k/cumm (1.2-3.4) L 07/17/18 18:05 Absolute Monocytes 0.53 k/cumm (0.11-0.7) 07/17/18 18:05 Absolute Eosinophils 0.11 k/cumm (0.0-0.7) 07/17/18 18:05 Absolute Basophils 0.02 k/cumm (0.0-0.2) 07/17/18 18:05 PT 9.4 sec (9.3-11.0) 07/17/18 18:05 INR 0.9 (0.9-1.1) 07/17/18 18:05 APTT 51.1 sec (21.0-31.4) H D 07/18/18 02:15 Sodium 142 mmol/L (136-145) 07/18/18 06:10 Potassium 4.1 mmol/L (3.5-5.1) 07/18/18 06:10 Chloride 102 mmol/L (98-107) 07/18/18 06:10 Carbon Dioxide 36.5 mmol/L (21.0-32.0) H 07/18/18 06:10 Anion Gap 3.5 mmol/L (3-11) 07/18/18 06:10 BUN 24 mg/dL (7-18) H 07/18/18 06:10 Creatinine 1.41 mg/dL (0.70-1.30) H 07/18/18 06:10 Estimated GFR/1.73 m2 49.41 (mL/min/1.73m2) 07/18/18 06:10 Glucose 84 mg/dL (70-100) 07/18/18 06:10 Calcium 8.9 mg/dL (8.5-10.1) 07/18/18 06:10 Magnesium 2.0 mg/dL (1.8-2.4) 07/17/18 18:05 Total Bilirubin 1.0 mg/dL (0.2-1.0) 07/17/18 18:05 AST 45 U/L (15-37) H 07/17/18 18:05 ALT 74 U/L (12-78) 07/17/18 18:05 Alkaline Phosphatase 86 U/L (46-116) 07/17/18 18:05 Troponin I 0.39 ng/mL (0.00-0.06) H* 07/18/18 06:10 NT-Pro-B Natriuret Pep 2275 pg/mL (-299) H 07/17/18 18:05 Total Protein 8.1 g/dL (6.4-8.2) 07/17/18 18:05 Albumin 4.0 g/dL (3.4-5.0) 07/17/18 18:05 Triglycerides 38 mg/dL (30-150) 07/18/18 06:10 Total Cholesterol 166 mg/dL (50-200) 07/18/18 06:10 LDL Cholesterol Direct 96 mg/dL (<100) 07/18/18 06:10 HDL Cholesterol 68 mg/dL (40-60) H 07/18/18 06:10 TSH 3.45 uIU/mL (0.358-3.74) 07/18/18 06:10 Urine Color Yellow (Yellow) 07/18/18 07:00 Urine Clarity Clear 07/18/18 07:00 Urine pH 7.0 (5-8) 07/18/18 07:00 Ur Specific [place] 1.020 (1.005-1.025) 07/18/18 07:00 Urine Protein Trace mg/dL (Negative) H 07/18/18 07:00 Urine Ketones Negative mg/dL (Negative) 07/18/18 07:00 Urine Blood Negative (Negative) 07/18/18 07:00 Urine Nitrite Negative (Negative) 07/18/18 07:00 Urine Bilirubin Negative (Negative) 07/18/18 07:00 Urine Urobilinogen 0.2 EU/dL (Up TO 0.2) 07/18/18 07:00 Ur Leukocyte Esterase Negative (Negative) 07/18/18 07:00 Urine RBC 0-2 (0-2) 07/18/18 07:00 Urine WBC 0-2 HPF (0-5) 07/18/18 07:00 Ur Epithelial Cells Negative HPF (Negative) 07/18/18 07:00 Urine Crystals Negative HPF (Negative) 07/18/18 07:00 Urine Bacteria Negative HPF (Negative) 07/18/18 07:00 Urine Casts Negative LPF (Negative) 07/18/18 07:00 Urine Mucus Negative (Negative) 07/18/18 07:00 Urine Other Negative (Negative) 07/18/18 07:00 Ur Culture Indicated? No 07/18/18 07:00 Urine Glucose Negative mg/dL (Negative) 07/18/18 07:00 Objective Narrative Objective Narrative: EXAM: XR Chest, 2 Views EXAM DATE/TIME: 07/17/2018 5:34 PM CLINICAL HISTORY: 73 years old, male; Signs and symptoms; Patient HX: Dyspnea on exertion R/O acute disease chf; Additional info: HX head/neck CA TECHNIQUE: Imaging protocol: XR of the chest, 2 views. COMPARISON: CR CHEST 2 VIEWS PA,LAT 03/05/2013 10:57 AM FINDINGS: Lungs: Bibasilar opacities with nonvisualization of the hemidiaphragms. Bilateral pleural effusions. Aerated lungs clear of infiltrates. Pleural space: See Lungs Finding. Heart/Mediastinum: Unremarkable. No cardiomegaly. Bones/joints: Dextroscoliosis of the thoracic spine. Degenerative changes within thoracic spine. IMPRESSION: Bilateral pleural effusions. Associated lower lungs infiltrates cannot be ruled out. Likely elevation of the left hemidiaphragm. Stable marked dextroscoliosis of the thoracic spine. Exam(s) a US:US echocardiogram Date of study: 07/18/2018 Transthoracic Echocardiography M-mode, complete 2D, complete spectral Doppler, and color Doppler *STUDY CONCLUSIONS* Summary: 1. Left ventricle: The cavity size was dilated. Wall thickness was normal. Systolic function was severely reduced. The estimated ejection fraction was 20-25%. Severe diffuse hypokinesis with regional variations. Akinesis of the inferolateral and inferior myocardium. 2. Right ventricle: The cavity size was mildly dilated. Systolic function was reduced. 3. Left atrium: The atrium was mildly dilated. 4. Mitral valve: There was moderate regurgitation. 5. Tricuspid valve: There was moderate regurgitation. 6. Pulmonary arteries: Pulmonary systolic pressure was increased, in the range of 50mm Hg to 55mm Hg. 7. Inferior vena cava: The vessel was patent and mildly dilated. The respirophasic diameter changes were in the normal range (greater than or equal to 50%), consistent with normal central venous pressure. 8. Pericardium, extracardiac: There was a right pleural effusion. There was a left pleural effusion.
--- NOTE | 2018-07-18 11:52 | PGE_ITS ---
Date of Service Date of service: 07/18/18 Time of Service: 11:45 Assessment and Plan (1) CHF (congestive heart failure): Current visit: Yes Status: Acute ECHO with drop in LVEF to 20-25% and reduced RV function. Moderate MR was again noted. PAP's in the 50's, with moderate TR. (2) Elevated troponin: Current visit: Yes Status: Acute Mildly elevated Troponin in setting of acute exacerbation of CHF and MARIIA, likely represents demand ischemia with poor clearance. Doubt ACS. (3) Acute kidney injury: Current visit: Yes Status: Acute Mildly worse following diuresis this morning. Continue to monitor closely as patient requires further diuresis (4) CAD S/P percutaneous coronary angioplasty: Current visit: Yes Status: Chronic (5) HTN (hypertension): Current visit: Yes Status: Chronic (6) Hx of atrial flutter: Current visit: No Status: Resolved (7) Right carotid artery occlusion: Current visit: No Status: Chronic (8) DVT prophylaxis: Current visit: Yes Status: Acute Subjective Interval history since last seen: 73-year-old man with a past medical history significant for CHF, admitted from [facility] Emergency Department with a diagnosis of CHF Exacerbation. Mr. Noland has a prior medical history significant for CAD with a prior history of STEMI in 2013, hospitalized at [facility], s/p [facility] with intervention and single vessel stenting (unsure of vessel). His hospitalization was further complicated by development of acute decompensated CHF, cardiac arrest, and Ventilator Associated Pneumonia/Aspiration Pneumonia requiring an approximately 6 week hospital course. He has had a chronic left pleural effusion since that time. 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 The patient previously followed with Dr. Dolan of [facility] until his group home, and then switched his care to Dr. Mckeon at [facility]. He reports a stress test approximately 3 years ago that showed no evidence of new ischemia. The patient presented to the ED from his primary's office with complaints of generalized fatigue and worsening MILNER over the prior few days. He reported a concurrent 8 pound weight gain, and attributes this to increased salt intake. He denied any peripheral edema, orthopnea, or PND. He also reported poor sleep recently, but not because of dyspnea. Work-up in the ED was significant for mild hypoxia, bilateral pleural effusions (with chronicity to the left), elevated BNP, MARIIA, and mildly elevated Troponin. The patient was referred for admission for further evaluation and treatment. Mr. Noland responded very well to initial attempt at diuresis. He breathing feels better, although he is not back at his baseline. He is also still requiring supplemental oxygen. His ECHO was performed and shows a drop in LVEF of 20-25%, severe diffuse hypokinesis with regional variations. No overnight events reported. Remains afebrile. Exam Narrative Exam Narrative: General: Patient appears comfortable, AAOX3, NAD Neck: Supple CV: Regular, nontachycardic, S1S2, No rubs, murmurs, or gallops. Pulmonary: Mild right basilar crackles. Left base breath sounds decreased with concurrent crackles. Abdomen: + Bowel Sounds, soft, nontender, nondistended Vascular: No lower extremity edema Psych: Normal mood and affect. Objective Objective Clinical Data: Abnormal lab results 07/17/18 07/17/18 07/17/18 Range/Units 18:05 18:05 21:15 WBC (4.4-10.8) k/cumm Hct 51.2 H (40.0-50.0) % MCV 97.3 H (80-95) fL RDW (11.8-14.1) % Absolute Lymphocytes 0.93 L (1.2-3.4) k/cumm APTT (21.0-31.4) sec Carbon Dioxide 35.0 H (21.0-32.0) mmol/L BUN 23 H (7-18) mg/dL Creatinine 1.34 H (0.70-1.30) mg/dL Glucose 110 H (70-100) mg/dL AST 45 H (15-37) U/L Troponin I 0.39 H* 0.44 H* (0.00-0.06) ng/mL NT-Pro-B Natriuret Pep 2275 H ( - 299) pg/mL HDL Cholesterol (40-60) mg/dL Urine Protein (Negative) mg/dL 07/18/18 07/18/18 07/18/18 Range/Units 02:15 02:15 06:10 WBC (4.4-10.8) k/cumm Hct (40.0-50.0) % MCV (80-95) fL RDW (11.8-14.1) % Absolute Lymphocytes (1.2-3.4) k/cumm APTT 51.1 H D (21.0-31.4) sec Carbon Dioxide 36.5 H (21.0-32.0) mmol/L BUN 24 H (7-18) mg/dL Creatinine 1.41 H (0.70-1.30) mg/dL Glucose (70-100) mg/dL AST (15-37) U/L Troponin I 0.44 H* (0.00-0.06) ng/mL NT-Pro-B Natriuret Pep ( - 299) pg/mL HDL Cholesterol 68 H (40-60) mg/dL Urine Protein (Negative) mg/dL 07/18/18 07/18/18 07/18/18 Range/Units 06:10 06:10 07:00 WBC 3.99 L (4.4-10.8) k/cumm Hct (40.0-50.0) % MCV 98.1 H (80-95) fL RDW 14.2 H (11.8-14.1) % Absolute Lymphocytes (1.2-3.4) k/cumm APTT (21.0-31.4) sec Carbon Dioxide (21.0-32.0) mmol/L BUN (7-18) mg/dL Creatinine (0.70-1.30) mg/dL Glucose (70-100) mg/dL AST (15-37) U/L Troponin I 0.39 H* (0.00-0.06) ng/mL NT-Pro-B Natriuret Pep ( - 299) pg/mL HDL Cholesterol (40-60) mg/dL Urine Protein Trace H (Negative) mg/dL Vital Signs Temperature 37.4 C 07/18/18 11:23 Temperature Source Temporal Artery Scan 07/18/18 11:23 Pulse 72 07/18/18 11:12 Pulse 74 07/18/18 11:12 Respiratory Rate 19 07/18/18 11:12 Respiratory Effort Short of Breath 07/18/18 11:23 Respiratory Depth Normal 07/18/18 11:23 Respiratory Pattern Normal 07/18/18 11:23 Blood Pressure 101/62 07/18/18 11:12 Blood Pressure Mean 72 07/18/18 11:12 Blood Pressure Position Sitting 07/18/18 00:05 Pulse Oximetry 97 07/18/18 11:23 Oxygen Delivery Method Nasal Cannula 07/18/18 11:23 Oxygen Flow Rate 1 07/18/18 11:23 Pain Level 0 07/18/18 11:23 Intake & Output 07/17/18 07/17/18 07/18/18 11:59 23:59 11:59 Intake Total 125 / 125 885.833 / 885.833 Output Total 1500 / 1500 1275 / 1275 Balance -1375 / -1375 -389.167 / -389.167 Weight 86.7 kg 82.5 kg Intake: IV 75.833 / 75.833 Oral 125 / 125 810 / 810 Output: Urine 1500 / 1500 1275 / 1275 Other: Urine Color Yellow Urine Appearance Clear Urine Odor None Comment UA SENT. Voiding Methods Urinal # Voids 1 Laboratory Results WBC 3.99 k/cumm (4.4-10.8) L 07/18/18 06:10 RBC 4.72 m/cumm (4.50-6.00) 07/18/18 06:10 Hgb 14.8 g/dL (13.5-17.5) 07/18/18 06:10 Hct 46.3 % (40.0-50.0) 07/18/18 06:10 MCV 98.1 fL (80-95) H 07/18/18 06:10 MCH 31.4 pg (27.0-33.0) 07/18/18 06:10 MCHC 32.0 g/dL (32.0-36.0) 07/18/18 06:10 RDW 14.2 % (11.8-14.1) H 07/18/18 06:10 Plt Count 162 x1000/uL (130-400) 07/18/18 06:10 MPV 10.0 fL (8.0-11.0) 07/18/18 06:10 Immature Gran % 0.2 07/17/18 18:05 Neutrophils % 69.2 07/17/18 18:05 Lymphocytes % 17.9 07/17/18 18:05 Monocytes % 10.2 07/17/18 18:05 Eosinophils % 2.1 07/17/18 18:05 Basophils % 0.4 07/17/18 18:05 Absolute Neutrophils 3.61 k/cumm (1.2-6.7) 07/17/18 18:05 Absolute Lymphocytes 0.93 k/cumm (1.2-3.4) L 07/17/18 18:05 Absolute Monocytes 0.53 k/cumm (0.11-0.7) 07/17/18 18:05 Absolute Eosinophils 0.11 k/cumm (0.0-0.7) 07/17/18 18:05 Absolute Basophils 0.02 k/cumm (0.0-0.2) 07/17/18 18:05 PT 9.4 sec (9.3-11.0) 07/17/18 18:05 INR 0.9 (0.9-1.1) 07/17/18 18:05 APTT 51.1 sec (21.0-31.4) H D 07/18/18 02:15 Sodium 142 mmol/L (136-145) 07/18/18 06:10 Potassium 4.1 mmol/L (3.5-5.1) 07/18/18 06:10 Chloride 102 mmol/L (98-107) 07/18/18 06:10 Carbon Dioxide 36.5 mmol/L (21.0-32.0) H 07/18/18 06:10 Anion Gap 3.5 mmol/L (3-11) 07/18/18 06:10 BUN 24 mg/dL (7-18) H 07/18/18 06:10 Creatinine 1.41 mg/dL (0.70-1.30) H 07/18/18 06:10 Estimated GFR/1.73 m2 49.41 (mL/min/1.73m2) 07/18/18 06:10 Glucose 84 mg/dL (70-100) 07/18/18 06:10 Calcium 8.9 mg/dL (8.5-10.1) 07/18/18 06:10 Magnesium 2.0 mg/dL (1.8-2.4) 07/17/18 18:05 Total Bilirubin 1.0 mg/dL (0.2-1.0) 07/17/18 18:05 AST 45 U/L (15-37) H 07/17/18 18:05 ALT 74 U/L (12-78) 07/17/18 18:05 Alkaline Phosphatase 86 U/L (46-116) 07/17/18 18:05 Troponin I 0.39 ng/mL (0.00-0.06) H* 07/18/18 06:10 NT-Pro-B Natriuret Pep 2275 pg/mL (-299) H 07/17/18 18:05 Total Protein 8.1 g/dL (6.4-8.2) 07/17/18 18:05 Albumin 4.0 g/dL (3.4-5.0) 07/17/18 18:05 Triglycerides 38 mg/dL (30-150) 07/18/18 06:10 Total Cholesterol 166 mg/dL (50-200) 07/18/18 06:10 LDL Cholesterol Direct 96 mg/dL (<100) 07/18/18 06:10 HDL Cholesterol 68 mg/dL (40-60) H 07/18/18 06:10 TSH 3.45 uIU/mL (0.358-3.74) 07/18/18 06:10 Urine Color Yellow (Yellow) 07/18/18 07:00 Urine Clarity Clear 07/18/18 07:00 Urine pH 7.0 (5-8) 07/18/18 07:00 Ur Specific [place] 1.020 (1.005-1.025) 07/18/18 07:00 Urine Protein Trace mg/dL (Negative) H 07/18/18 07:00 Urine Ketones Negative mg/dL (Negative) 07/18/18 07:00 Urine Blood Negative (Negative) 07/18/18 07:00 Urine Nitrite Negative (Negative) 07/18/18 07:00 Urine Bilirubin Negative (Negative) 07/18/18 07:00 Urine Urobilinogen 0.2 EU/dL (Up TO 0.2) 07/18/18 07:00 Ur Leukocyte Esterase Negative (Negative) 07/18/18 07:00 Urine RBC 0-2 (0-2) 07/18/18 07:00 Urine WBC 0-2 HPF (0-5) 07/18/18 07:00 Ur Epithelial Cells Negative HPF (Negative) 07/18/18 07:00 Urine Crystals Negative HPF (Negative) 07/18/18 07:00 Urine Bacteria Negative HPF (Negative) 07/18/18 07:00 Urine Casts Negative LPF (Negative) 07/18/18 07:00 Urine Mucus Negative (Negative) 07/18/18 07:00 Urine Other Negative (Negative) 07/18/18 07:00 Ur Culture Indicated? No 07/18/18 07:00 Urine Glucose Negative mg/dL (Negative) 07/18/18 07:00 Objective Narrative Objective Narrative: EXAM: XR Chest, 2 Views EXAM DATE/TIME: 07/17/2018 5:34 PM CLINICAL HISTORY: 73 years old, male; Signs and symptoms; Patient HX: Dyspnea on exertion R/O acute disease chf; Additional info: HX head/neck CA TECHNIQUE: Imaging protocol: XR of the chest, 2 views. COMPARISON: CR CHEST 2 VIEWS PA,LAT 03/05/2013 10:57 AM FINDINGS: Lungs: Bibasilar opacities with nonvisualization of the hemidiaphragms. Bilateral pleural effusions. Aerated lungs clear of infiltrates. Pleural space: See Lungs Finding. Heart/Mediastinum: Unremarkable. No cardiomegaly. Bones/joints: Dextroscoliosis of the thoracic spine. Degenerative changes within thoracic spine. IMPRESSION: Bilateral pleural effusions. Associated lower lungs infiltrates cannot be ruled out. Likely elevation of the left hemidiaphragm. Stable marked dextroscoliosis of the thoracic spine. Exam(s) a US:US echocardiogram Date of study: 07/18/2018 Transthoracic Echocardiography M-mode, complete 2D, complete spectral Doppler, and color Doppler *STUDY CONCLUSIONS* Summary: 1. Left ventricle: The cavity size was dilated. Wall thickness was normal. Systolic function was severely reduced. The estimated ejection fraction was 20-25%. Severe diffuse hypokinesis with regional variations. Akinesis of the inferolateral and inferior myocardium. 2. Right ventricle: The cavity size was mildly dilated. Systolic function was reduced. 3. Left atrium: The atrium was mildly dilated. 4. Mitral valve: There was moderate regurgitation. 5. Tricuspid valve: There was moderate regurgitation. 6. Pulmonary arteries: Pulmonary systolic pressure was increased, in the range of 50mm Hg to 55mm Hg. 7. Inferior vena cava: The vessel was patent and mildly dilated. The respirophasic diameter changes were in the normal range (greater than or equal to 50%), consistent with normal central venous pressure. 8. Pericardium, extracardiac: There was a right pleural effusion. There was a left pleural effusion.
--- NOTE | 2018-07-18 14:30 | W.PM.DS.N ---
Date of service: 07/18/18 Time of Service: 14:30 DS: Diagnosis Discharge Diagnosis (1) CHF (congestive heart failure): Status: Acute (2) Elevated troponin: Status: Acute (3) Acute kidney injury: Status: Acute (4) CAD S/P percutaneous coronary angioplasty: Status: Chronic (5) HTN (hypertension): Status: Chronic (6) Right carotid artery occlusion: Status: Chronic Discharge Plan Disposition Patient Disposition: [facility] Condition: Stable Discharge Details Reason For Visit: CHF, INDETERMINANT TROPONIN, HTN Admit Date/Time: 07/17/18 22:49 Admit Provider: Jamisno Bustamante Attending Provider: Jamison Bustamante Primary Care Provider: Zeina Lizama V Hospital Course Hospital Course: Chief Complaint: Dyspnea HPI:`11` 73-year-old man with a past medical history significant for CHF, admitted from [facility] Emergency Department with a diagnosis of CHF Exacerbation. Mr. Noland has a past Medical History significant for CAD with a prior history of STEMI in 2012, [place] [facility] [place] [facility] with intervention and single vessel stenting (unsure of vessel). His hospitalization was further complicated by development of acute decompensated CHF, cardiac arrest, and Ventilator Associated Pneumonia/Aspiration Pneumonia requiring an approximately 6 week hospital course. He has had a chronic left pleural effusion since that time. 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 The patient previously followed with Dr. Dolan of [facility] until his mcc, and then switched his care to Dr[place]ke[place] [facility] [place] He reports a stress test approximately 3 years ago that showed no evidence of new ischemia. The patient presented to the ED from his primary's office with complaints of generalized fatigue and worsening MILNER over the prior few days. He reported a concurrent weight gain, and attributes this to increased salt intake. He denied any peripheral edema, orthopnea, or PND. He also reported poor sleep recently, but not because of dyspnea. Work-up in the ED was significant for mild hypoxia, bilateral pleural effusions (with chronicity to the left), elevated BNP (2275), MARIIA (creatinine 1.34 - baseline 1.2-1.3), and mildly elevated Troponin (0.39 Troponin I). The patient was referred for admission for further evaluation and treatment. Mr. Noland responded very well to initial attempt at diuresis with 40 IV Lasix. He breathing feels better, although he is not back at his baseline. He is also still requiring supplemental oxygen. His ECHO was performed and shows a drop in LVEF of 20-25%, severe diffuse hypokinesis with regional variations. No overnight events reported. Remains afebrile. Hospital Course: (1) CHF (congestive heart failure): ECHO with drop in LVEF to 20-25% and reduced RV function. Moderate MR was again noted. PAP's in the 50's, with moderate TR. Significant drop in LV Function. Currently with a mild elevation in troponin, but doubt ACS - although cannot rule out recent ischemia. Regardless, Mr. Noland will benefit from an ischemic evaluation, and as cardiology is unavailable today and there is no access to stress testing over the weekend, Mr. oNland was admitted [place] [facility] [place] and will be transferred there for further work-up. (2) Elevated troponin: Mildly elevated Troponin in setting of acute exacerbation of CHF and MARIIA, likely represents demand ischemia with poor clearance. However, given drop in EF may benefit from ischemic evaluation as above. Currently remains on heparin gtt, and received aspirin and plavix by admitting physician. Continue BB. (3) Acute kidney injury: Mildly worse following diuresis this morning. Initial elevation is mildly above baseline, and may be secondary to poor forward flow in patient with acute CHF. Continue to monitor closely as patient requires further diuresis, and consider lasix gtt if needed. (4) CAD S/P percutaneous coronary angioplasty: Plans as above. (5) HTN (hypertension): Noted. Currently on BB therapy. (6) Hx of atrial flutter: Appears to be in sinus. Also on BB therapy, but not on chronic AC. (7) Right carotid artery occlusion: Refuses statin therapy. Details of stenosis unknown. Home Meds and New Rx's Prescriptions: Continued lorazepam 0.5 MG tablet 0.5 mg PO BID PRN PRNRF: 0 aspirin 81 MG tablet,chewable 81 mg PO DAILY RF: 0 B-Complex 1 EACH tablet 1 ea PO DAILY RF: 0 metoprolol succinate 50 MG tablet extended release 24 hr 50 mg PO BID RF: 0 multivitamin [Multi-Day] 1 EACH tablet 2 ea PO DAILY RF: 0 beta carotene 25,000 UNIT capsule 25,000 unit PO DAILY RF: 0 nitroglycerin [Nitrostat] 0.4 MG tablet, sublingual 0.4 mg Sublingual DIRECTED RF: 0 albuterol sulfate [ProAir HFA] 200 PUFF HFA aerosol inhaler 2 puff Inhalation Q4H PRN PRNRF: 0 vitamin E 400 UNIT capsule 400 unit PO DAILY RF: 0 cholecalciferol (vitamin D3) [Vitamin D3] 1,000 UNIT capsule 1,000 unit PO DAILY RF: 0 omega-3 fatty acids-fish oil [Fish Oil] 1 EACH capsule 1 ea PO DAILY RF: 0 [place] Extract (w-zinc) 1 EACH capsule 1 ea PO DAILY RF: 0 Zyrtec 10 MG capsule 10 mg PO HS PRN PRNRF: 0 Sheldon-Mag 1 EACH tablet,chewable 1 ea PO DAILY RF: 0 coenzyme [id number] 1 EACH capsule 1 ea PO DAILY RF: 0 acetaminophen [Mapap Extra Strength] 500 MG tablet 500 mg PO PRN PRNRF: 0 Discharge Instructions Activity:: Ambulate with assistance Diet:: Low Sodium Discharge Orders Discharge Orders: Discharge Order (Routine); Ordered 07/18/18 Ordered By: Eran Scales DS: Data Vitals/I&O Vitals and I&O: Vital Signs Temperature 37.4 C 07/18/18 11:23 Temperature Source Temporal Artery Scan 07/18/18 11:23 Pulse 72 07/18/18 11:12 Pulse 74 07/18/18 11:12 Respiratory Rate 19 07/18/18 11:12 Respiratory Effort Short of Breath 07/18/18 11:23 Respiratory Depth Normal 07/18/18 11:23 Respiratory Pattern Normal 07/18/18 11:23 Blood Pressure 101/62 07/18/18 11:12 Blood Pressure Mean 72 07/18/18 11:12 Blood Pressure Position Sitting 07/18/18 00:05 Pulse Oximetry 97 07/18/18 11:23 Oxygen Delivery Method Nasal Cannula 07/18/18 11:23 Oxygen Flow Rate 1 07/18/18 11:23 Pain Level 0 07/18/18 11:23 Intake & Output 07/17/18 07/18/18 07/18/18 23:59 11:59 23:59 Intake Total 125 / 125 885.833 / 1125.833 240 / 1125.833 Output Total 1500 / 1500 1275 / 1575 300 / 1575 Balance -1375 / -1375 -389.167 / -449.167 -60 / -449.167 Weight 86.7 kg 82.5 kg Intake: IV 75.833 / 75.833 Oral 125 / 125 810 / 1050 240 / 1050 Output: Urine 1500 / 1500 1275 / 1575 300 / 1575 Other: Urine Color Yellow Yellow Urine Appearance Clear Clear Urine Odor None None Comment UA SENT. Stool Occult Blood Negative Stool Size Large Stool Characteristics Hard Brown Green Voiding Methods Urinal Urinal # Voids 1 Completed studies during hospitalization [Text1]: Exam(s) a RAD:XR chest 2V PA & lateral SYMPTOM/DIAGNOSIS: DYSPNEA ON EXERTION, ? CHF PA AND LATERAL CHEST: The examination is compared with previous examination of 03/06/13. There are bilateral pleural effusions on today's examination. Pleural effusion was noted on the left on the previous examination. Diaphragm may be elevated today. The lungs are grossly clear. Cardiac size is difficult to determinate due to elevation of the diaphragm. CONCLUSION: Bilateral pleural effusions, etiology uncertain. Correlation requested regarding the possibility of CHF. If the findings do not resolve, additional evaluation with chest CT may be considered. Exam(s) a US:US echocardiogram Date of study: 07/18/2018 Transthoracic Echocardiography M-mode, complete 2D, complete spectral Doppler, and color Doppler *STUDY CONCLUSIONS* Summary: 1. Left ventricle: The cavity size was dilated. Wall thickness was normal. Systolic function was severely reduced. The estimated ejection fraction was 20-25%. Severe diffuse hypokinesis with regional variations. Akinesis of the inferolateral and inferior myocardium. 2. Right ventricle: The cavity size was mildly dilated. Systolic function was reduced. 3. Left atrium: The atrium was mildly dilated. 4. Mitral valve: There was moderate regurgitation. 5. Tricuspid valve: There was moderate regurgitation. 6. Pulmonary arteries: Pulmonary systolic pressure was increased, in the range of 50mm Hg to 55mm Hg. 7. Inferior vena cava: The vessel was patent and mildly dilated. The respirophasic diameter changes were in the normal range (greater than or equal to 50%), consistent with normal central venous pressure. 8. Pericardium, extracardiac: There was a right pleural effusion. There was a left pleural effusion. Labs on day of discharge: Labs from last 24 hours 07/18/18 07/18/18 07/18/18 09:00 07:00 06:10 WBC RBC Hgb Hct MCV MCH MCHC RDW Plt Count MPV Immature Gran % Neutrophils % Lymphocytes % Monocytes % Eosinophils % Basophils % Absolute Neutrophils Absolute Lymphocytes Absolute Monocytes Absolute Eosinophils Absolute Basophils PT INR APTT Cancelled Sodium Potassium Chloride Carbon Dioxide Anion Gap BUN Creatinine Estimated GFR/1.73 m2 Glucose Calcium Magnesium Total Bilirubin AST ALT Alkaline Phosphatase Troponin I 0.39 H* NT-Pro-B Natriuret Pep Total Protein Albumin Triglycerides Total Cholesterol LDL Cholesterol Direct HDL Cholesterol TSH Urine Color Yellow Urine Clarity Clear Urine pH 7.0 Ur Specific Ohlman 1.020 Urine Protein Trace H Urine Ketones Negative Urine Blood Negative Urine Nitrite Negative Urine Bilirubin Negative Urine Urobilinogen 0.2 Ur Leukocyte Esterase Negative Urine RBC 0-2 Urine WBC 0-2 Ur Epithelial Cells Negative Urine Crystals Negative Urine Bacteria Negative Urine Casts Negative Urine Mucus Negative Urine Other Negative Ur Culture Indicated? No Urine Glucose Negative 07/18/18 07/18/18 07/18/18 06:10 06:10 02:15 WBC 3.99 L RBC 4.72 Hgb 14.8 Hct 46.3 MCV 98.1 H MCH 31.4 MCHC 32.0 RDW 14.2 H Plt Count 162 MPV 10.0 Immature Gran % Neutrophils % Lymphocytes % Monocytes % Eosinophils % Basophils % Absolute Neutrophils Absolute Lymphocytes Absolute Monocytes Absolute Eosinophils Absolute Basophils PT INR APTT Sodium 142 Potassium 4.1 Chloride 102 Carbon Dioxide 36.5 H Anion Gap 3.5 BUN 24 H Creatinine 1.41 H Estimated GFR/1.73 m2 49.41 Glucose 84 Calcium 8.9 Magnesium Total Bilirubin AST ALT Alkaline Phosphatase Troponin I 0.44 H* NT-Pro-B Natriuret Pep Total Protein Albumin Triglycerides 38 Total Cholesterol 166 LDL Cholesterol Direct 96 HDL Cholesterol 68 H TSH 3.45 Urine Color Urine Clarity Urine pH Ur Specific [place] Urine Protein Urine Ketones Urine Blood Urine Nitrite Urine Bilirubin Urine Urobilinogen Ur Leukocyte Esterase Urine RBC Urine WBC Ur Epithelial Cells Urine Crystals Urine Bacteria Urine Casts Urine Mucus Urine Other Ur Culture Indicated? Urine Glucose 07/18/18 07/17/18 07/17/18 02:15 21:15 18:05 WBC RBC Hgb Hct MCV MCH MCHC RDW Plt Count MPV Immature Gran % Neutrophils % Lymphocytes % Monocytes % Eosinophils % Basophils % Absolute Neutrophils Absolute Lymphocytes Absolute Monocytes Absolute Eosinophils Absolute Basophils PT 9.4 INR 0.9 APTT 51.1 H D 23.2 Sodium Potassium Chloride Carbon Dioxide Anion Gap BUN Creatinine Estimated GFR/1.73 m2 Glucose Calcium Magnesium Total Bilirubin AST ALT Alkaline Phosphatase Troponin I 0.44 H* NT-Pro-B Natriuret Pep Total Protein Albumin Triglycerides Total Cholesterol LDL Cholesterol Direct HDL Cholesterol TSH Urine Color Urine Clarity Urine pH Ur Specific [place] Urine Protein Urine Ketones Urine Blood Urine Nitrite Urine Bilirubin Urine Urobilinogen Ur Leukocyte Esterase Urine RBC Urine WBC Ur Epithelial Cells Urine Crystals Urine Bacteria Urine Casts Urine Mucus Urine Other Ur Culture Indicated? Urine Glucose 07/17/18 07/17/18 18:05 18:05 WBC 5.21 RBC 5.26 Hgb 16.4 Hct 51.2 H MCV 97.3 H MCH 31.2 MCHC 32.0 RDW 14.1 Plt Count 173 MPV 10.0 Immature Gran % 0.2 Neutrophils % 69.2 Lymphocytes % 17.9 Monocytes % 10.2 Eosinophils % 2.1 Basophils % 0.4 Absolute Neutrophils 3.61 Absolute Lymphocytes 0.93 L Absolute Monocytes 0.53 Absolute Eosinophils 0.11 Absolute Basophils 0.02 PT INR APTT Sodium 138 Potassium 4.4 Chloride 98 Carbon Dioxide 35.0 H Anion Gap 5.0 BUN 23 H Creatinine 1.34 H Estimated GFR/1.73 m2 52.40 Glucose 110 H Calcium 9.5 Magnesium 2.0 Total Bilirubin 1.0 AST 45 H ALT 74 Alkaline Phosphatase 86 Troponin I 0.39 H* NT-Pro-B Natriuret Pep 2275 H Total Protein 8.1 Albumin 4.0 Triglycerides Total Cholesterol LDL Cholesterol Direct HDL Cholesterol TSH Urine Color Urine Clarity Urine pH Ur Specific [place] Urine Protein Urine Ketones Urine Blood Urine Nitrite Urine Bilirubin Urine Urobilinogen Ur Leukocyte Esterase Urine RBC Urine WBC Ur Epithelial Cells Urine Crystals Urine Bacteria Urine Casts Urine Mucus Urine Other Ur Culture Indicated? Urine Glucose PFSH Medical History Hx of cardiac arrest (Resolved) Hx of tongue cancer (Resolved) Right carotid artery occlusion (Chronic) Hx of intrinsic asthma (Chronic) Hx of atrial flutter (Resolved) HTN (hypertension) (Chronic) CAD S/P percutaneous coronary angioplasty (Chronic) Acute kidney injury (Acute) Elevated troponin (Acute) CHF (congestive heart failure) (Acute) Cardiomyopathy (Acute) Dyspnea on exertion (Acute) Elevated LFTs (Acute) History of tobacco use (Acute) Hyperlipemia (Acute) Left knee pain (Acute) Malignant neoplasm (Acute) Pleural effusion, left (Acute) Anxiety (Chronic) Asthma (Chronic) BPH (benign prostatic hyperplasia) (Chronic) Myocardial infarction (Chronic) Psoriasis (Chronic) Acute myocardial infarction Chronic obstructive lung disease Coronary arteriosclerosis Surgical History History of total right hip arthroplasty (Acute) Colonoscopy - MAC (04/03/16) Coronary Stent EGD - MAC tracheostomy Family History Mother Chronic congestive heart failure Father Personal history of malignant neoplasm Social History Smoking/Tobacco Use Status: Former Tobacco Use Alcohol Intake: former Drug use: Never Substance use type: does not use, former substance user Date of last use: 30 years and crack/cocaine 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
--- NOTE | 2018-07-18 15:36 | NUR.NOTE ---
Pt left for [facility], Lungs clear upper with dim bases and slight crackles in L posterior. On 1L/NC, systems benign for external assessment otherwise. Nursing Note:
== END 2018-07-18 15:10 | disposition short-term general hospital (02) | DRG 292 ==
LOC: ER 22:28 → ICU 23:46
PROVIDERS: Physician Assistant; Admitting Provider Internal Medicine; Emergency Provider Emergency Medicine; PCP Family Medicine; Visit Provider Internal Medicine
DX: I50.9 Heart failure, unspecified (principal); N17.9 Acute kidney failure, unspecified; I24.8 Other forms of acute ischemic heart disease; R74.8 Abnormal levels of other serum enzymes; I25.10 Atherosclerotic heart disease of native coronary artery without angina pectoris; Z95.5 Presence of coronary angioplasty implant and graft; I11.0 Hypertensive heart disease with heart failure; I65.21 Occlusion and stenosis of right carotid artery; I25.2 Old myocardial infarction; I34.0 Nonrheumatic mitral (valve) insufficiency; F41.9 Anxiety disorder, unspecified; N40.0 Benign prostatic hyperplasia without lower urinary tract symptoms
CPT/HCPCS: 36415; 80048; 80053; 80061; 83721; 85027; 93005; 93306; 96365; 96366; 96375; 99223; 99239; 99285; 71046; 81003; 81015; 83735; 83880; 84443; 84484; 85025; 85610; 85730; 93010; J1644; J1940; J3490

== ENCOUNTER 2018-08-08 10:03 | Outpatient (CLI) | payer MEDICARE, MEDICAID, SELFPAY ==
--- NOTE | 2018-08-08 11:15 | DI.RAD_ITS ---
SYMPTOMS/DIAGNOSIS: LT PLEURAL EFFUSION, J90 PA AND LATERAL CHEST: Comparison is made with 2May19. There has been interval decrease in size of the previously noted left pleural effusion, now small.
== END 2018-08-08 10:23 ==
PROVIDERS: PCP Family Medicine; Visit Provider Family Medicine
DX: J90 Pleural effusion, not elsewhere classified (principal)
CPT/HCPCS: 71046

== ENCOUNTER 2018-10-23 02:15 | Outpatient (CLI) | payer MEDICARE, MEDICAID, SELFPAY ==
[2018-10-23 08:48] LABS: ALT 42 U/L (12-78); AST 39 U/L (15-37); Albumin 3.6 g/dL (3.4-5.0); Alkaline Phosphatase 63 U/L (46-116); Anion Gap 6.3 mmol/L (3-11); BUN 34 mg/dL (7-18); Bilirubin, Total 0.6 mg/dL (0.2-1.0); CO2 30.7 mmol/L (21.0-32.0); CREATININE 1.22 mg/dL (0.70-1.30); Calcium 8.8 mg/dL (8.5-10.1); Calculated LDL 70 mg/dL; Chloride 103 mmol/L (98-107); Cholesterol 161 mg/dL (50-200); Estimated GFR 58.39 (mL/min/1.73m2); Glucose 107 mg/dL (70-100); HDL Cholesterol 77 mg/dL (40-60); Sodium 140 mmol/L (136-145); Total Protein 6.8 g/dL (6.4-8.2); Triglyceride 70 mg/dL (30-150)
[2018-10-24 09:20] LABS: PSA, Screening 3.4 ng/ml (0-6.5)
== END 2018-10-23 02:35 ==
PROVIDERS: PCP Family Medicine; Visit Provider Family Medicine
DX: I25.5 Ischemic cardiomyopathy (principal); E78.5 Hyperlipidemia, unspecified; Z12.5 Encounter for screening for malignant neoplasm of prostate; Z51.81 Encounter for therapeutic drug level monitoring
CPT/HCPCS: 36415; 80053; 80061; 83721; 84153; 83735

== ENCOUNTER 2018-11-21 10:58 | Outpatient (CLI) | payer MEDICARE, MEDICAID, SELFPAY ==
[2018-11-21 13:28] LABS: Anion Gap 4.4 mmol/L (3-11); BUN 28 mg/dL (7-18); CO2 32.6 mmol/L (21.0-32.0); CREATININE 1.61 mg/dL (0.70-1.30); Calcium 8.8 mg/dL (8.5-10.1); Chloride 103 mmol/L (98-107); Glucose 110 mg/dL (70-100); Potassium 4.9 mmol/L (3.5-5.1); Sodium 140 mmol/L (136-145)
== END 2018-11-21 11:18 ==
PROVIDERS: PCP Family Medicine; Visit Provider Urology
DX: R33.9 Retention of urine, unspecified (principal)
CPT/HCPCS: 36415; 80048

== ENCOUNTER 2018-12-04 15:21 | Outpatient (REF) | payer MEDICARE, SELFPAY ==
[2018-12-04 15:35] LABS: Bilirubin Negative (Negative); Clarity Clear (Clear); Glucose Negative (Negative); Ketones Negative (Negative); Leukocyte Esterase Small (Negative); Nitrite Negative (Negative); Specific Gravity 1.015 (1.005-1.025); Urobilinogen 0.2 EU/dL (Up TO 0.2); pH 5.5 (5-8)
[2018-12-04 15:56] LABS: Bacteria Moderate HPF (Negative); Blood TRACE (Negative); Crystals Negative HPF (Negative); Epithelial Cells Negative HPF (Negative); Mucus Moderate (Negative); WBC >50 HPF (0-5)
[2018-12-04 15:57] LABS: C & S Indicated? C&S Done As Ordered
== END 2018-12-04 15:41 ==
LOC: LBN 15:21
PROVIDERS: PCP Family Medicine; Visit Provider Urology
DX: R33.9 Retention of urine, unspecified (principal)
CPT/HCPCS: 87077; 81003; 81015; 87086; 87186

== ENCOUNTER 2019-09-17 02:25 | Outpatient (CLI) | payer MEDICARE, SELFPAY ==
[2019-09-17 12:14] LABS: ALT 42 U/L (16-63); AST 39 U/L (15-37); Alkaline Phosphatase 59 U/L (46-116); Anion Gap 6.2 mmol/L (3-11); BUN 26 mg/dL (7-18); Bilirubin, Total 0.6 mg/dL (0.2-1.0); CO2 32.8 mmol/L (21.0-32.0); Calcium 9.8 mg/dL (8.5-10.1); Chloride 98 mmol/L (98-107); Estimated GFR 59.35 (mL/min/1.73m2); Glucose 106 mg/dL (74-106); Potassium 4.7 mmol/L (3.5-5.1); Sodium 137 mmol/L (136-145); Total Protein 7.7 g/dL (6.4-8.2)
== END 2019-09-17 02:45 ==
PROVIDERS: PCP Family Medicine; Visit Provider Family Medicine
DX: R79.89 Other specified abnormal findings of blood chemistry (principal)
CPT/HCPCS: 36415; 80053

== ENCOUNTER 2019-10-19 20:36 | Emergency (ER) | payer MEDICARE, MEDICAID, SELFPAY ==
[2019-10-19 20:37] VITALS: BP 183/100; PULSE 941; RESP 18; TEMP 37.1; O2SAT 98
--- NOTE | 2019-10-19 20:45 | DI.RAD_ITS ---
EXAM: XR CERVICAL SP PACHECO TRAUMA 2-3V CLINICAL HISTORY: fall, right lateral pain, r/o fracture TECHNIQUE: COMPARISON: CR,RF BARIUM SWALLOW W PA LAT CXR from 08/21/2012 FINDINGS: Three views were obtained. There is an upper cervical kyphosis as noted on prior radiographs includi ng August 2012. There are severe degenerative changes of the cervical spine. There is no evidence of acute fracture. The patient was unable to cooperate and the odontoid film is of poor technical quality. Additional e valuation CT may be obtained if clinically indicated. IMPRESSION:
--- NOTE | 2019-10-19 20:55 | W.ED.GENAD ---
Discharge Plan Disposition Patient Disposition: HOME Condition: Stable Discharge Details Chief Complaint: Laceration Clinical Impression: Laceration of left elbow, Cervical muscle strain Primary Care Provider: Magalie Sanchez ED Provider: Steffanie Baxter Home Meds and New Rx's Prescriptions: Continued lorazepam 0.5 MG tablet 0.5 mg PO BID PRN PRNRF: 0 aspirin 81 MG tablet,chewable 81 mg PO DAILY RF: 0 B-Complex Plus Vit C (calcium) 1 EACH tablet 1 ea PO DAILY RF: 0 metoprolol succinate 50 MG tablet extended release 24 hr 50 mg PO BID RF: 0 multivitamin [Multi-Day] 1 EACH tablet 2 ea PO DAILY RF: 0 nitroglycerin [Nitrostat] 0.4 MG tablet, sublingual 0.4 mg Sublingual DIRECTED RF: 0 albuterol sulfate [ProAir HFA] 200 PUFF HFA aerosol inhaler 2 puff Inhalation Q4H PRN PRNRF: 0 vitamin E 400 UNIT capsule 400 unit PO DAILY RF: 0 cholecalciferol (vitamin D3) [Vitamin D3] 1,000 UNIT capsule 5,000 unit PO DAILY RF: 0 Fish Oil 1 EACH capsule 1 ea PO DAILY RF: 0 Sheldon-Mag 1 EACH tablet,chewable 1 ea PO DAILY RF: 0 coenzyme [id number] 1 EACH capsule 1 ea PO DAILY RF: 0 acetaminophen [Mapap Extra Strength] 500 MG tablet 500 mg PO PRN PRNRF: 0 furosemide [Lasix] 20 mg Tablet 20 mg PO Q OTHER DAY RF: 0 oregano oil 1,500 mg Capsule PO RF: 0 Discharge Instructions Instructions: Cervical Strain (ED), Laceration (ED) Additional Instructions: Sutures will absorb in 14 days. No soaking, may wash under running soap and water in 12 to 24 hours. Allow to air dry every day. Please return immediately for any signs of infection including increased redness, swelling, drainage, trouble moving your elbow or any concerns. Alternate ice and heat to your neck. May take Tylenol every 4-6 hours with food as needed for pain. Return for any worsening headache, confusion, dizziness blurry vision or any concerns. Referrals: Zeina Lizama MD [ [facility] STAFF PHYSICIAN] - Discharge Data Discharge Date/Time-TO BE ENTERED AT DEPARTURE: 10/19/19 22:45 Medical Decision Making 74-year-old male presents to the ER with chief complaint of left elbow laceration and right lateral neck tenderness after a fall while fishing. Patient reports that he lost his footing falling forward to the left landing on his left elbow. He then felt some stretching and a snap the right side of his neck. He was able to climb approximately 200 feet out [place] the [place] onto the side of the road. He was able to call his friend who called 911. His friend's family insisted that he come be seen in the ER. He denies loss of consciousness, is alert and oriented x4 upon arrival. He is complaining of right paraspinous neck tenderness, does have 2 lacerations noted to his left posterior elbow. Denies any chest pain, shortness of breath, back pain, lower extremity tenderness or any other complaints. Unknown last tetanus shot. Declined ibuprofen or Tylenol at this time. Does request small muscle relaxer. Past medical history includes anxiety, history of cardiac arrest, tongue cancer, right carotid artery occlusion, hypertension, acute kidney injury, CHF, COPD. Patient declined administration of tetanus shot, patient also refuses to wear a mask while in department despite multiple efforts to encourage mask wearing and request to wear a face shield. Patient was given 2 mg p.o. Valium for muscle relaxant. Imaging protocol: XR of the cervical spine, 2 or 3 views. COMPARISON: No relevant prior studies available. FINDINGS: Vertebrae: Slight reversal of the cervical curvature. Multilevel degenerative changes of the cervical spine. Anterior wedging of C2, C3, C4, and C5 vertebral bodies. Advanced degenerative changes with disc space narrowing at C3-C4, C4-C5, C5-C6, and C6-C7. Degenerative scoliotic changes of the thoracic spine. The C1-C2 articulation is not seen on the odontoid view. Vasculature: Atherosclerotic calcification of the carotid arteries. Atherosclerotic calcification of the aorta. Soft tissues: Unremarkable. IMPRESSION: Limited visualization of the cervical spine. Advanced multilevel degenerative changes as discussed above. Limited odontoid view. If clinical concern consider CT of the neck for further evaluation. Thank you for allowing us to participate in the care of your patient. Dictated and Authenticated by: Vale Kolb MD Imaging protocol: XR Left elbow. Views: 3 or more views. COMPARISON: No relevant prior studies available. FINDINGS: Bones/joints: Unremarkable. Soft tissues: Mild soft tissue swelling along the dorsum of the elbow. Punctate calcifications involving the lateral epicondyle and lateral aspect of the radial head. IMPRESSION: No evidence for acute bony injury. If clinical symptoms persist recommend followup film in 7-10 days. Thank you for allowing us to participate in the care of your patient. Dictated and Authenticated by: Vale Kolb MD 2149: Discussed x-ray results with patient, verbalized understanding. 2154: Lacerations repaired as noted in procedure note above. Anesthesia achieved with lidocaine 1% with epi patient tolerated well. Lacerations irrigated extensively, loosely approximated with four 3.0 Vicryl absorbable sutures and one 4.0 Vicryl absorbable suture at patient request. Patient was given 1 g of Tylenol prior to discharge and nonadherent dressing applied by catering staff member. Discussed with strict return instructions, verbalized understanding. Instructed to return for any signs of infection or worsening pain or confusion. HPI General Mode of arrival: EMS. Date/Time Provider Initiated Documentation: 10/19/19 20:51. Limitations to Documentation: no limitations. Information obtained by: patient and EMS. History of Present Illness Patient did receive the following treatments prior to arrival, splint (C-collar) and other (Dressing to left elbow) HPI Narrative: 74-year-old male presents to the ER with chief complaint of left elbow laceration and right lateral neck tenderness after a fall while fishing. Patient reports that he lost his footing falling forward to the left landing on his left elbow. He then felt some stretching and a snap the right side of his neck. He was able to climb approximately 200 [place] onto the side of the road. He was able to call his friend who called 911. His friend's family insisted that he come be seen in the ER. He denies loss of consciousness, is alert and oriented x4 upon arrival. He is complaining of right paraspinous neck tenderness, does have 2 lacerations noted to his left posterior elbow. Denies any chest pain, shortness of breath, back pain, lower extremity tenderness or any other complaints. Unknown last tetanus shot. Declined ibuprofen or Tylenol at this time. Does request small muscle relaxer. Past medical history includes anxiety, history of cardiac arrest, tongue cancer, right carotid artery occlusion, hypertension, acute kidney injury, CHF, COPD. Related Data Home Medications Medication Instructions Recorded Confirmed B-Complex Plus Vit C (calcium) 1 ea PO DAILY 07/11/12 10/19/19 aspirin 81 mg PO DAILY 07/11/12 10/19/19 lorazepam 0.5 mg PO BID PRN PRN 07/11/12 10/19/19 Sheldon-Mag 1 ea PO DAILY 04/02/16 10/19/19 Fish Oil 1 ea PO DAILY 04/02/16 10/19/19 albuterol sulfate [ProAir HFA] 2 puff INHALATION Q4H PRN PRN 04/02/16 10/19/19 cholecalciferol (vitamin D3) 5,000 unit PO DAILY 04/02/16 10/19/19 [Vitamin D3] coenzyme [id number] E 1 ea PO DAILY 04/02/16 10/19/19 metoprolol succinate 50 mg PO BID 04/02/16 10/19/19 multivitamin [Multi-Day] 2 ea PO DAILY 04/02/16 10/19/19 nitroglycerin [Nitrostat] 0.4 mg SUBLINGUAL DIRECTED 04/02/16 10/19/19 vitamin E 400 unit PO DAILY 04/02/16 10/19/19 acetaminophen [Mapap Extra 500 mg PO PRN PRN 04/03/16 10/19/19 Strength] furosemide [Lasix] 20 mg PO Q OTHER DAY 10/19/19 10/19/19 oregano oil mg PO 10/19/19 Allergies Allergy/AdvReac Type Severity Reaction Status Date / Time carvedilol Allergy Unverified 07/17/18 18:07 General Stated Complaint: Laceration SCOTT: 3 Review of Systems Narrative: Constitutional: Negative for weight loss, alert and oriented, well groomed, normal body habitus, appears comfortable. HEENT: Denies headaches, blurry vision, nasal discharge, sore throat, trouble swallowing. Reports right lateral paraspinous neck tenderness no midline C-spine tenderness. Chest: Denies chest pain, palpitations, irregular rhythm, does have a history of CHF, CAD, and hypertension. Respiratory: Denies Shortness of breath, , hemoptysis. Usually wears 2 L oxygen nasal cannula does have a history of COPD GI: Denies abdominal pain, nausea, vomiting, diarrhea, constipation. : Denies dysuria, hematuria, flank pain, rectal bleeding. Skin: Does have 2 lacerations noted to his left elbow. Full range of motion. Neuro: Denies dizziness, blurry vision, weakness, syncope, headache or facial numbness. Hematologic: Denies easy bruising, intolerance to heat or cold, hair loss. [facility] Medical History Acute kidney injury (Acute) Acute myocardial infarction Anxiety (Chronic) Asthma (Chronic) BPH (benign prostatic hyperplasia) (Chronic) CAD S/P percutaneous coronary angioplasty (Chronic) Cardiomyopathy (Acute) CHF (congestive heart failure) (Acute) Chronic obstructive lung disease Coronary arteriosclerosis Dyspnea on exertion (Acute) Elevated LFTs (Acute) Elevated troponin (Acute) History of tobacco use (Acute) HTN (hypertension) (Chronic) Hx of atrial flutter (Resolved) Hx of cardiac arrest (Resolved) Hx of intrinsic asthma (Chronic) Hx of tongue cancer (Resolved) Hyperlipemia (Acute) Left knee pain (Acute) Malignant neoplasm (Acute) tongue Myocardial infarction (Chronic) Pleural effusion, left (Acute) Psoriasis (Chronic) Right carotid artery occlusion (Chronic) Surgical History Colonoscopy - [facility] (04/03/16) Coronary Stent 2013 EGD - [facility] History of total right hip arthroplasty (Acute) tracheostomy Family History Mother Chronic congestive heart failure Father Personal history of malignant neoplasm Lung Cancer Social History Smoking/Tobacco Use Status: Former Tobacco Use Alcohol Intake: former Drug use: Never Substance use type: does not use, former substance user Date of last use: 30 years and crack/cocaine Household members: none Housing: house current occupation: retired [employer] Pets and animals: Yes Do you feel safe at home: Yes Do you feel safe in your relationship?: Yes Exam Narrative Exam Narrative: Constitutional: Alert and oriented x3. Appears stated age. Normal body habitus. Head: Normocephalic, no trauma. Eyes: Pupils PERRLA, Red reflex noted, EOM's intact. Eyelids symmetrical without lesions, discharge, or swelling. ENT: Bilateral TM's WNL, External ear normal to inspection, no mastoid TTP, swelling, or erythema, Nasal turbinates WNL, no nasal discharge. Normal dentition, Posterior pharynx WNL, no exudate. Neck: Initially presents in a c-collar, no midline C-spine tenderness with palpation, no crepitus no step-off, does have right lateral paraspinous tenderness and muscle spasm. Chest: RRR, Normal S1, S2, distal pulses intact. Resp: Lungs clear to auscultation bilaterally, no wheezes, rales, or rhonchi. Musculoskeletal: Normal gait, 5/5 strength to all four extremities. Skin: Has a approximately 3 and half centimeter crescent shaped laceration which is linear to his posterior elbow, just proximal to that there is a circular avulsion type laceration measuring approximately 3 cm in diameter bleeding is controlled with pressure upon arrival. Does have full range of motion noted to his elbow and shoulder and wrist. No other injuries, deformity or swelling noted. Capillary refill less than 2 sec. Neurologic: Cranial nerves II-XII intact. Alert and oriented x 3. DTR's intact. Hematologic/Lymphatic: No ecchymosis, no lymphadenopathy. Skin Trauma: laceration (crescent shaped laceration noted over the posterior olecranon) left volar elbow irregular, contaminated and involves subcutaneous tissue and other (There are circular avulsion type laceration noted just distally to lac #1) Course Vital Signs Vital signs: Vital Signs Temperature 37.1 C 10/19/19 20:37 Pulse 941 H 10/19/19 20:37 Respiratory Rate 18 10/19/19 20:37 Blood Pressure 183/100 H 10/19/19 20:37 Pulse Oximetry 98 10/19/19 20:37 Temperature 37.1 C 10/19/19 20:37 Temperature Source Skin 10/19/19 20:37 Pulse 941 H 10/19/19 20:37 Respiratory Rate 18 10/19/19 20:37 Respiratory Effort 10/19/19 20:50 Blood Pressure 183/100 H 10/19/19 20:37 Blood Pressure Position Supine 10/19/19 20:37 Pulse Oximetry 98 10/19/19 20:37 Oxygen Delivery Method Room Air 10/19/19 20:37 Oxygen Flow Rate 0 10/19/19 20:37 Pain Level 5 10/19/19 20:37 Procedures Laceration Laceration 1: Site: upper extremity (elbow) Side (If applicable): left Size (cm): 3.5 Description: linear and contaminated Depth: simple, single layer Local Anesthetic: Lidocaine 1% and with Epi Amount of anesthesia used (mL): 4 Pre-repair: wound explored, irrigated extensively and deep structures intact Skin layer closed with: vicryl Size (cm): 3-0 Number of sutures: 4 Technique: simple, interrupted Laceration 2: Site: upper extremity Side (If applicable): left Size (cm): 2 Description: flap, irregular and contaminated Depth: simple, single layer Local Anesthetic: Lidocaine 1% and with Epi Amount of anesthesia used (mL): 1 Pre-repair: wound explored, irrigated extensively and deep structures intact Skin layer closed with: vicryl Size (cm): 4-0 Number of sutures: 1 Technique: simple, interrupted
--- NOTE | 2019-10-19 21:00 | DI.RAD_ITS ---
EXAM: XR ELBOW LT COMPLETE CLINICAL HISTORY: fall, r/o fracture TECHNIQUE: COMPARISON: No exams were available for comparison FINDINGS: Three views were obtained. There is no evidence of an elbow joint effusion or hemarthrosis. No frac ture seen. Soft tissue calcifications noted at multiple sites particularly at the lateral epicondyle of the humerus consistent with degenerative/dystrophic changes. IMPRESSION:
[2019-10-19] MEDS: diazePAM 2 MG TAB PO (21:02)
--- NOTE | 2019-10-19 21:13 | NUR.NOTE ---
Pt states unable to wear mask d/t his need for oxygen and COPD. Steffanie STATISTICAL TYPIST in to speak to pt.
--- NOTE | 2019-10-19 21:17 | NUR.NOTE ---
KALEB Castillo with lac to left elbow s/p mechanical fall while [place]. Pt states ground gave out from under him and he fell forward and to the left, sustained lac to left elbow, states heard snap to right neck. Reports right neck stiffness, denies pain. c-collar removed by DARLENE Baxter. Denies head strike, back pain. 5/5 strength to all limbs.
--- NOTE | 2019-10-19 21:33 | DI.VRAD_ITS ---
PROCEDURE INFORMATION: Exam: XR Left Elbow Exam date and time: 10/19/2019 9:17 PM Age: 74 years old Clinical indication: Pain; Elbow; Left TECHNIQUE: Imaging protocol: XR Left elbow. Views: 3 or more views. COMPARISON: No relevant prior studies available. FINDINGS: Bones/joints: Unremarkable. Soft tissues: Mild soft tissue swelling along the dorsum of the elbow. Punctate calcifications involving the lateral epicondyle and lateral aspect of the radial head. IMPRESSION: No evidence for acute bony injury. If clinical symptoms persist recommend followup film in 7-10 days. Dictated and Authenticated by: Vale Kolb MD. Ordering:ROMA Valiente MD
--- NOTE | 2019-10-19 21:38 | NUR.NOTE ---
Pt declined tetanus shot.
--- NOTE | 2019-10-19 21:49 | DI.VRAD_ITS ---
PROCEDURE INFORMATION: Exam: XR Cervical Spine, 2 or 3 Views Exam date and time: 10/19/2019 9:14 PM Age: 74 years old Clinical indication: Neck pain; Additional info: Best images obtained due to patient, patient refused any other images. TECHNIQUE: Imaging protocol: XR of the cervical spine, 2 or 3 views. COMPARISON: No relevant prior studies available. FINDINGS: Vertebrae: Slight reversal of the cervical curvature. Multilevel degenerative changes of the cervical spine. Anterior wedging of C2, C3, C4, and C5 vertebral bodies. Advanced degenerative changes with disc space narrowing at C3-C4, C4-C5, C5-C6, and C6-C7. Degenerative scoliotic changes of the thoracic spine. The C1-C2 articulation is not seen on the odontoid view. Vasculature: Atherosclerotic calcification of the carotid arteries. Atherosclerotic calcification of the aorta. Soft tissues: Unremarkable. IMPRESSION: Limited visualization of the cervical spine. Advanced multilevel degenerative changes as discussed above. Limited odontoid view. If clinical concern consider CT of the neck for further evaluation. Dictated and Authenticated by: Vale Kolb MD. Ordering:ROMA Valiente MD
[2019-10-19] MEDS: Acetaminophen 500 MG TAB 1000 MG PO (22:37)
[2019-10-19 22:44] VITALS: BP 138/77; PULSE 85; RESP 16; O2SAT 98
--- NOTE | 2019-10-19 22:45 | NUR.NOTE ---
Bacitracin, dsd, coban to left elbow. wound care discussed. encouraged to call pcp to verify tetanus status. ambulated to exit with steady gait.
== END 2019-10-19 22:45 | disposition home or self-care (01) ==
LOC: ER 22:38
PROVIDERS: Emergency Provider Registered Nurse Emergency; PCP Family Medicine
DX: S51.012A Laceration without foreign body of left elbow, initial encounter (principal); S16.1XXA Strain of muscle, fascia and tendon at neck level, initial encounter; W17.81XA Fall down embankment (hill), initial encounter; I10 Essential (primary) hypertension; J44.9 Chronic obstructive pulmonary disease, unspecified; Z99.81 Dependence on supplemental oxygen; Z87.891 Personal history of nicotine dependence
CPT/HCPCS: 12002; 99284; 72040; 73080; 99282

== ENCOUNTER 2020-01-13 12:48 | Emergency (ER) | payer MEDICARE, MEDICAID, SELFPAY ==
[2020-01-13] VITALS (51 sets, daily range): BP systolic 117–163; BP diastolic 64–95; PULSE 62–99; RESP 7–25; TEMP 36.6; O2SAT 90–100
--- NOTE | 2020-01-13 12:45 | RT.EKG_ITS ---
APPROVED REPORT Exam: Resting ECG Patient Location: E HR:90 bpm ECG Measurements Heart Rate 90 AXIS IL 204 P 82 QRSd 103 QRS 60 QT 361 T 208 QTc 441 Conclusion Sinus rhythm...normal P axis, V-rate 60- 99 Ventricular tachycardia, unsustained...sequence of 3 or more V complexes Left atrial enlargement...P, P'>60mS, <-0.15mV V1 LVH with secondary repolarization abnormality...multi-LVH criteria, abnrm ST-T
--- NOTE | 2020-01-13 13:14 | W.ED.GENAD ---
Discharge Plan Disposition Patient Disposition: [facility] INPATIENT Condition: Serious Discharge Details Clinical Impression: Elevated troponin, Non-ST elevation ID (NSTEMI) Primary Care Provider: Magalie Sanchez ED Provider: John Vazquez Home Meds and New Rx's Prescriptions: No Action lorazepam 0.5 MG tablet 0.5 mg PO BID PRN PRNRF: 0 aspirin 81 MG tablet,chewable 81 mg PO DAILY RF: 0 B-Complex Plus Vit C (calcium) 1 EACH tablet 1 ea PO DAILY RF: 0 cannabidiol 100 mg/mL Solution 600 mg PO DAILY RF: 0 multivitamin [Multi-Day] 1 EACH tablet 2 ea PO DAILY RF: 0 nitroglycerin [Nitrostat] 0.4 MG tablet, sublingual 0.4 mg Sublingual DIRECTED RF: 0 albuterol sulfate [ProAir HFA] 200 PUFF HFA aerosol inhaler 2 puff Inhalation Q4H PRN PRNRF: 0 vitamin E 400 UNIT capsule 400 unit PO DAILY RF: 0 cholecalciferol (vitamin D3) [Vitamin D3] 1,000 UNIT capsule 5,000 unit PO DAILY RF: 0 Fish Oil 1 EACH capsule 1 ea PO DAILY RF: 0 Sheldon-Mag 1 EACH tablet,chewable 1 ea PO DAILY RF: 0 coenzyme [id number] E 1 EACH capsule 1 ea PO DAILY RF: 0 acetaminophen [Mapap Extra Strength] 500 MG tablet 500 mg PO PRN PRNRF: 0 oregano oil 1,500 mg Capsule PO RF: 0 Medical Decision Making 75 yo male with hx of cad s/p stent, copd and former smoker, chf, who comes in with complaints that his home o2 monitor was stating his heart rate was jumping around from 30-100. He denies any symptoms on my questioning, denies chest pain currently though states he did have some mild tightness this morning, denies dyspnea, lightheadedness, fevers, cough, abdominal pain. He has frequent pvc's, heart rate in the 80's. No jvd or calf tenderness or leg swelling. Suspect his range in heart rates were due to his pvc's, will obtain troponin given his earlier chest tightness and monitor. No hypoxia or evidence of dvt so doubt PE. pt remains hd stable without symptoms, labs show troponin of 0.3. [place] [facility] [facility] Nadiya Ashley who is the cardiac respiratory care program director and Dr. Owen from cardioogy can accept and recommend 300mg aspirin, atorvastatin and metoprolol. They can accept but he may not be able to accept in transfer until tomorrow and may have to remain in the ED until then. Pt remains stable. icu bed opened up here, spoke with Dr. hernandez who accepts for admission [place] [facility] Diagnosis Differential Diagnosis: electrolyte abnormality, pvc's Medical Records Medical records reviewed: Yes I reviewed the patient's medical records. Imaging Data Radiologic Study: Attestation: I personally reviewed and interpreted this imaging study as follows: Imaging: X-Ray Radiologist's impression: no acute findings Lab Data Lab results reviewed: Yes I reviewed the patient's lab results. ECG Data Attestation: I personally reviewed and interpreted this ECG (s) as follows: Prior ECG tracings: not available for review Interpretation: sinus rhythm, rat eof 90, pr 204, freqent pvc's 2ne ekg shows sinus rhythm, rate of 79, pr 208, pvc's HPI General Mode of arrival: ambulatory. Date/Time Provider Initiated Documentation: 01/13/20 13:02. Limitations to Documentation: no limitations. Information obtained by: patient. History of Present Illness 75 year old M presents to the emergency department with the chief complaint of variation in heart rate, Patient started experiencing this day(s) (1) and it has been constant. No relieving factors improve symptom(s), No exacerbating factors reported . Patient notes no other symptoms.. Patient did receive the following treatments prior to arrival, none Related Data Home Medications Medication Instructions Recorded Confirmed B-Complex Plus Vit C (calcium) 1 ea PO DAILY 07/11/12 01/13/20 aspirin 81 mg PO DAILY 07/11/12 01/13/20 lorazepam 0.5 mg PO BID PRN PRN 07/11/12 01/13/20 Sheldon-Mag 1 ea PO DAILY 04/02/16 01/13/20 Fish Oil 1 ea PO DAILY 04/02/16 01/13/20 albuterol sulfate [ProAir HFA] 2 puff INHALATION Q4H PRN PRN 04/02/16 01/13/20 cholecalciferol (vitamin D3) 5,000 unit PO DAILY 04/02/16 01/13/20 [Vitamin D3] coenzyme [id number] E 1 ea PO DAILY 04/02/16 01/13/20 multivitamin [Multi-Day] 2 ea PO DAILY 04/02/16 01/13/20 nitroglycerin [Nitrostat] 0.4 mg SUBLINGUAL DIRECTED 04/02/16 01/13/20 vitamin E 400 unit PO DAILY 04/02/16 01/13/20 acetaminophen [Mapap Extra 500 mg PO PRN PRN 04/03/16 01/13/20 Strength] oregano oil mg PO 10/19/19 cannabidiol 600 mg PO DAILY 01/13/20 01/13/20 Allergies Allergy/AdvReac Type Severity Reaction Status Date / Time carvedilol Allergy Unverified 01/13/20 13:46 General Stated Complaint: Chest Pain SCOTT: 2 Review of Systems All systems reviewed & are unremarkable except as noted in HPI and below Constitutional Constitutional: Denies chills, Denies fever(s) and Denies weakness Cardiovascular Cardiovascular: Denies chest pain and Denies dyspnea Respiratory Respiratory: Denies cough and Denies dyspnea Gastrointestinal Gastrointestinal: Denies abdominal pain, Denies nausea and Denies vomiting Genitourinary Genitourinary: Denies dysuria Musculoskeletal Musculoskeletal: Denies joint swelling Integumentary/Breasts Skin/Breast: Denies rash Neurologic Neurologic: Denies weakness Psychiatric Psychiatric: Denies depression [facility] Medical History (Updated 01/13/20 @ 16:28 by John Vazquez MD) Acute kidney injury Acute myocardial infarction Anxiety Asthma BPH (benign prostatic hyperplasia) CAD S/P percutaneous coronary angioplasty Cardiomyopathy CHF (congestive heart failure) Chronic obstructive lung disease Coronary arteriosclerosis Dyspnea on exertion Elevated LFTs Elevated troponin History of tobacco use HTN (hypertension) Hx of atrial flutter Hx of cardiac arrest Hx of intrinsic asthma Hx of tongue cancer Hyperlipemia Left knee pain Malignant neoplasm tongue Myocardial infarction Pleural effusion, left Psoriasis Right carotid artery occlusion Surgical History Colonoscopy - MAC (04/03/16) Coronary Stent 2012 EGD - MAC History of total right hip arthroplasty tracheostomy Family History Mother Chronic congestive heart failure Father Personal history of malignant neoplasm Lung Cancer Social History Smoking/Tobacco Use Status: Former Tobacco Use Smoking risk assessment performed?: Yes Alcohol Intake: former Drug use: Never Substance use type: does not use, former substance user Date of last use: 30 years and crack/cocaine 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 Exam Const General: no acute distress Orientation: alert HENMT Head: normal to inspection Ears: external ears normal General nose exam: external nose normal Mouth: moist mucous membranes Eyes General: appearance normal, both eyes and all related structures Neck Neck: normal visual inspection Resp Effort & Inspection: normal respiratory effort and able to speak in complete sentences Cardio Rate: regular rate Skin General skin exam: no rashes or lesions noted Neuro General: patient alert and patient oriented x3 Extrem General: normal to inspection Psych Mental Status: mental status grossly normal Course Vital Signs Vital signs: Vital Signs Temperature 36.6 C 01/13/20 12:59 Pulse 88 01/13/20 12:59 Respiratory Rate 13 01/13/20 12:59 Blood Pressure 161/95 H 01/13/20 12:59 Pulse Oximetry 94 01/13/20 12:59 Temperature 36.6 C 01/13/20 12:59 Temperature Source Skin 01/13/20 12:59 Pulse 88 01/13/20 12:59 Respiratory Rate 13 01/13/20 12:59 Blood Pressure 161/95 H 01/13/20 12:59 Blood Pressure Position Supine 01/13/20 12:59 Pulse Oximetry 94 01/13/20 12:59 Oxygen Delivery Method Room Air 01/13/20 12:59 Oxygen Flow Rate 0 01/13/20 12:59 Critical Care Time Critical Care Time Critical Care Time: Yes Total Critical Care Time: 60 (minutes) Attestation: time spent administering aspirin, heparin, plavix in a patient with nstemi and frequent reassesments with potential to deteriorate at any time
--- NOTE | 2020-01-13 13:15 | DI.RAD_ITS ---
EXAM: XR PORTABLE CHEST AP CLINICAL HISTORY: chest pain TECHNIQUE: COMPARISON: CR XR CHEST 2V PA LATERAL from 08/08/2018 FINDINGS: Portable AP chest at 1329 hours. There is a marked right thoracic scoliosis. Lungs appear grossly c lear. Heart is mildly enlarged. No change in appearance comparison prior radiographs of July 2018. IMPRESSION: No evidence of acute process. RADIATION DOSE DELIVERED: Total DLP
[2020-01-13 13:32] LABS: Abs Immature Grans 0.02 10^3/uL (0.0-0.06); Absolute Basophil Count 0.02 10^3/uL (0.0-0.2); Absolute Eosinophil Count 0.05 10^3/uL (0.0-0.7); Absolute Lymphocyte Count 0.58 10^3/uL (1.2-3.4); Absolute Monocyte Count 0.41 10^3/uL (0.1-0.8); Absolute Neutrophil Count 3.63 10^3/uL (1.2-6.7); Basophils % 0.4; Eosinophils % 1.1; HCT 46.8 % (40.0-50.0); HGB 15.2 g/dL (13.5-17.5); Immature Grans % 0.4; Lymphocytes % 12.3; MCH 31.3 pg (27.0-33.0); MCHC 32.5 % (32.0-36.0); MCV 96.3 fL (80-95); MPV 9.7 fL (8.0-11.0); Monocytes % 8.7; Neutrophils % 77.1; Nucleated RBC 0 %; Platelet Count 161 10^3/uL (130-400); RBC 4.86 10^6/uL (4.36-5.78); RDW 12.5 % (11.8-14.1); RDW-SD 45.1 fL; WBC 4.71 10^3/uL (4.4-10.8)
--- NOTE | 2020-01-13 13:45 | RT.EKG_ITS ---
APPROVED REPORT Exam: Resting ECG Patient Location: E HR:79 bpm ECG Measurements Heart Rate 79 AXIS IA 208 P 79 QRSd 97 QRS 47 QT 374 T 107 QTc 428 Conclusion Sinus rhythm...normal P axis, V-rate 60- 99 Ventricular bigeminy...bigeminy string>4 w/ V complexes Left atrial enlargement...P, P'>60mS, <-0.15mV V1 LVH with secondary repolarization abnormality...multi-LVH criteria, abnrm ST-T
[2020-01-13 13:48] LABS: ALT 33 U/L (16-63); AST 30 U/L (15-37); Albumin 3.7 g/dL (3.4-5.0); Alkaline Phosphatase 58 U/L (46-116); Anion Gap 2.6 mmol/L (3-11); BUN 23 mg/dL (7-18); Bilirubin, Total 0.9 mg/dL (0.2-1.0); CO2 33.4 mmol/L (21.0-32.0); CREATININE 1.02 mg/dL (0.70-1.30); Calcium 9.6 mg/dL (8.5-10.1); Chloride 101 mmol/L (98-107); Glucose 134 mg/dL (74-106); Magnesium 1.7 mg/dL (1.8-2.4); Sodium 137 mmol/L (136-145); Total Protein 7.5 g/dL (6.4-8.2)
[2020-01-13 13:51] LABS: PTT Activated 24.5 sec (21.0-31.4); Prothrombin Time 9.9 sec (9.3-11.0)
[2020-01-13] MEDS: Aspirin 81 MG CHEW 324 MG CH (14:10)
[2020-01-13] MEDS: Clopidogrel 300 MG TAB PO (14:44)
[2020-01-13] MEDS: Atorvastatin 40 MG TAB 80 MG PO (14:46)
[2020-01-13] MEDS: Metoprolol 12.5 MG TAB PO (14:46)
--- NOTE | 2020-01-13 14:57 | NUR.NOTE ---
pt relunctant to take prescribed medications. states it goes against all my beliefs about [place]. i asked dr sepulveda to speak with pt regarding his wishes for further treatment and a plan of care the patient was comfortable with. Ultimately pt agreed to plan of care. awaiting food tray for pt as he states he is hungry
--- NOTE | 2020-01-13 15:18 | NUR.NOTE ---
pt awake and alert. eating lunch currently. tolerating well.
[2020-01-13 16:38] LABS: Troponin I 0.26 ng/mL (<0.06)
[2020-01-16 13:37] LABS: COVID-19 RT-PCR UVMMC Result NEGATIVE (Negative)
--- NOTE | 2020-01-17 10:25 | NUR.NOTE ---
Nursing Note: Negative COVID result given over the phone after identity confirmed at 1028.
== END 2020-01-13 18:27 | disposition short-term general hospital (02) ==
PROVIDERS: Emergency Provider Emergency Medicine; PCP Family Medicine
DX: I21.4 Non-ST elevation (NSTEMI) myocardial infarction (principal); R77.8 Other specified abnormalities of plasma proteins; I11.0 Hypertensive heart disease with heart failure; I50.9 Heart failure, unspecified; J44.9 Chronic obstructive pulmonary disease, unspecified; Z87.891 Personal history of nicotine dependence
CPT/HCPCS: 36415; 80053; 93005; 99291; U0003; 71045; 83735; 84484; 85025; 85610; 85730; 93010; J3490

== ENCOUNTER 2020-03-04 11:05 | Emergency (ER) | payer MEDICARE, MEDICAID, SELFPAY ==
[2020-03-04] VITALS (27 sets, daily range): BP systolic 111–159; BP diastolic 60–80; PULSE 59–86; RESP 8–18; TEMP 36.7; O2SAT 77–100
--- NOTE | 2020-03-04 11:00 | RT.EKG_ITS ---
APPROVED REPORT Exam: Resting ECG Patient Location: E HR:67 bpm ECG Measurements Heart Rate 67 AXIS AR 228 P 80 QRSd 103 QRS 51 QT 412 T 96 QTc 436 Conclusion Sinus rhythm. Prolonged AR interval. Left atrial enlargement. LVH with secondary repolarization abnormality
--- NOTE | 2020-03-04 11:13 | W.ED.GENAD ---
Discharge Plan Disposition Patient Disposition: HOME Condition: Stable Discharge Details Clinical Impression: HTN (hypertension) Primary Care Provider: Magalie Sanchez ED Provider: Steffanie Baxter Home Meds and New Rx's Prescriptions: Continued lorazepam 0.5 MG tablet 0.5 mg PO BID PRN PRNRF: 0 aspirin 81 MG tablet,chewable 81 mg PO DAILY RF: 0 B-Complex Plus Vit C (calcium) 1 EACH tablet 1 ea PO DAILY RF: 0 cannabidiol 100 mg/mL Solution 600 mg PO DAILY RF: 0 metoprolol succinate 50 mg tablet extended release 24 hr 50 mg PO DAILY RF: 0 multivitamin [Multi-Day] 1 EACH tablet 2 ea PO DAILY RF: 0 nitroglycerin [Nitrostat] 0.4 MG tablet, sublingual 0.4 mg Sublingual DIRECTED RF: 0 albuterol sulfate [ProAir HFA] 200 PUFF HFA aerosol inhaler 2 puff Inhalation Q4H PRN PRNRF: 0 vitamin E 400 UNIT capsule 400 unit PO DAILY RF: 0 cholecalciferol (vitamin D3) [Vitamin D3] 1,000 UNIT capsule 5,000 unit PO DAILY RF: 0 Fish Oil 1 EACH capsule 1 ea PO DAILY RF: 0 Sheldon-Mag 1 EACH tablet,chewable 1 ea PO DAILY RF: 0 coenzyme [id number] E 1 EACH capsule 1 ea PO DAILY RF: 0 acetaminophen [Mapap Extra Strength] 500 MG tablet 500 mg PO PRN PRNRF: 0 oregano oil 1,500 mg Capsule PO RF: 0 Discharge Instructions Instructions: Hypertension (ED) Additional Instructions: Follow up with primary care provider in 3-5 days. Return to ED sooner if any worsening or concerns. Increase oral fluids. If you begin having any chest pain please take nitroglycerin as previously prescribed. Also return to the ED for any worsening or concerns. Please follow-up with cardiology. You may choose to follow-up with Dr. Owen who is also a team primary care physician at [facility] cardiology he does see patients here in [facility]. I did discuss your case with Dr. Hernandez who verbalized understanding. It appears that your baseline troponin does run about 0.2-0.3 which is what it is at today. At this time it is unclear to what caused the episode of high blood pressure. Referrals: Barrera Owen MD [ CONSULTING PHYSICIAN] - Magalie Sanchez [Primary Care Provider] - Medical Decision Making 75-year-old male presents to the ED with chief complaint of high blood pressure. Patient states last night while at home he was watching stock market and checked his blood pressure at the normal time and got a reading of 180/100 using his home automatic blood pressure cuff. He states that he does take his normal medications at night and he did take them as prescribed. He does take metoprolol succinate 50 mg daily. He called his PCP at [facility] and was instructed to be evaluated here in the ER. He is denying any symptoms. He denies any chest pain, shortness of breath, headache, blurry vision. His only complaint is when he pulled up in the parking lot today he heard some pulsing in his left ear. He denies any sinus fullness or runny nose. His blood pressure here upon arrival is now down to 147/75. I did check this against his home blood pressure monitor which is similar. Patient has a past medical history of coronary artery disease, CHF, COPD, hypertension, atrial fibrillation, anxiety. At this time EKG done, basic labs including troponin ordered to rule out any change. At this time blood pressure has improved and is approximately 148/75. At this time patient is asymptomatic. EKG was reviewed by Dr. Kailyn CHAUDHARY ER attending, please see his official report. 1223: Critical troponin results received from lab troponin is 0.28 with review of his past troponins he does have a chronically high troponin. His blood pressure is now 113/64. He has remained chest pain-free throughout stay. He is currently sleeping, awakens easily and is requesting food. 1245: Spoke with patient regarding Troponin result, he is still declining cardiac catheratization at this time if needed, will re-check troponin at 1400 obtain a chest X-ray and discuss with [facility] [place] cardiology. 1254: [facility] transfer center not answering, will discuss with Dr. Owen food quality tester who is here in house today. 1301: Spoke with To cardiology he was able to view the clinic notes. I did discuss patient case in details with him he states that as long as he is declining any intervention such as cardiac catheterization, his troponin stays around 0.3 range, and he remains chest pain-free there is no reason to consult with [facility]. It is okay to have patient follow-up as an outpatient with cardiology. 1422: Repeat troponin is 0.30 which is at patient's apparent baseline. Patient has been chest pain-free throughout stay. Blood pressure has improved. I did consult with cardiology as noted above. Will discuss results with patient and strongly encouraged cardiology follow-up and or follow-up with Dr. Owen who is seeing patients here in house. Patient verbalized understanding. Discussed strict return instructions. This text was generated using CORD:USE Cord Blood Bankation system, please disregard any oddities of phrase or misspellings. Medical Records Medical records reviewed: Yes I reviewed the patient's medical records. Medical records narrative: Records reviewed from admission in December to [facility] for an NSTEMI. At that time he was admitted to ICU had a troponin of 0.30 which then trended down to 0.26. He was offered a cardiac catheterization which patient declined at that time. HPI General Mode of arrival: ambulatory. Date/Time Provider Initiated Documentation: 03/04/20 11:06. Limitations to Documentation: no limitations. Information obtained by: patient. HPI Narrative: 75-year-old male presents to the ED with chief complaint of high blood pressure. Patient states last night while at home he was watching [place] market and checked his blood pressure at the normal time and got a reading of 180/100 using his home automatic blood pressure cuff. He states that he does take his normal medications at night and he did take them as prescribed. He does take metoprolol succinate 50 mg daily. He called his PCP at [facility] and was instructed to be evaluated here in the ER. He is denying any symptoms. He denies any chest pain, shortness of breath, headache, blurry vision. His only complaint is when he pulled up in the parking lot today he heard some pulsing in his left ear. He denies any sinus fullness or runny nose. His blood pressure here upon arrival is now down to 147/75. I did check this against his home blood pressure monitor which is similar. Patient has a past medical history of coronary artery disease, CHF, COPD, hypertension, atrial fibrillation, anxiety. Related Data Home Medications Medication Instructions Recorded Confirmed B-Complex Plus Vit C (calcium) 1 ea PO DAILY 07/11/12 01/13/20 aspirin 81 mg PO DAILY 07/11/12 01/13/20 lorazepam 0.5 mg PO BID PRN PRN 07/11/12 01/13/20 Sheldon-Mag 1 ea PO DAILY 04/02/16 01/13/20 Fish Oil 1 ea PO DAILY 04/02/16 01/13/20 albuterol sulfate [ProAir HFA] 2 puff INHALATION Q4H PRN PRN 04/02/16 01/13/20 cholecalciferol (vitamin D3) 5,000 unit PO DAILY 04/02/16 01/13/20 [Vitamin D3] coenzyme [id number] E 1 ea PO DAILY 04/02/16 01/13/20 multivitamin [Multi-Day] 2 ea PO DAILY 04/02/16 01/13/20 nitroglycerin [Nitrostat] 0.4 mg SUBLINGUAL DIRECTED 04/02/16 01/13/20 vitamin E 400 unit PO DAILY 04/02/16 01/13/20 acetaminophen [Mapap Extra 500 mg PO PRN PRN 04/03/16 01/13/20 Strength] oregano oil mg PO 10/19/19 cannabidiol 600 mg PO DAILY 01/13/20 01/13/20 metoprolol succinate 50 mg PO DAILY 03/04/20 03/04/20 Allergies Allergy/AdvReac Type Severity Reaction Status Date / Time carvedilol Allergy Unverified 03/04/20 11:15 General SCOTT: 2 Review of Systems Narrative: Constitutional: Negative for weight loss, alert and oriented, well groomed, normal body habitus, appears comfortable. HEENT: Denies trauma, headaches, blurry vision, nasal discharge, sore throat, trouble swallowing. Chest: Denies chest pain, palpitations, irregular rhythm, here for blood pressure check. Does have a history of cardiac disease. Respiratory: Denies Shortness of breath, cough, hemoptysis. GI: Denies abdominal pain, nausea, vomiting, diarrhea, constipation. : Denies dysuria, hematuria, flank pain, rectal bleeding. Neuro: Denies dizziness, blurry vision, weakness, syncope, headache or facial numbness. Hematologic: Denies easy bruising, intolerance to heat or cold, hair loss. [facility] Medical History (Updated 03/04/20 @ 14:26 by Steffanie Baxter) Acute kidney injury Acute myocardial infarction Anxiety Asthma BPH (benign prostatic hyperplasia) CAD S/P percutaneous coronary angioplasty Cardiomyopathy CHF (congestive heart failure) Chronic obstructive lung disease Coronary arteriosclerosis Dyspnea on exertion Elevated LFTs Elevated troponin History of tobacco use HTN (hypertension) Hx of atrial flutter Hx of cardiac arrest Hx of intrinsic asthma Hx of tongue cancer Hyperlipemia Left knee pain Malignant neoplasm tongue Myocardial infarction Pleural effusion, left Psoriasis Right carotid artery occlusion Surgical History Colonoscopy - MAC (04/03/16) Coronary Stent 2012 EGD - MAC History of total right hip arthroplasty tracheostomy Family History Mother Chronic congestive heart failure Father Personal history of malignant neoplasm Lung Cancer Social History Smoking/Tobacco Use Status: Former Tobacco Use Smoking risk assessment performed?: Yes Alcohol Intake: former Drug use: Never Substance use type: does not use, former substance user Date of last use: 30 years and crack/cocaine Household members: none Housing: house current occupation: retired [employer] Pets and animals: Yes Do you feel safe at home: Yes Do you feel safe in your relationship?: Yes Exam Narrative Exam Narrative: Constitutional: Alert and oriented x3. Appears stated age. Normal body habitus. Head: Normocephalic, no trauma. Eyes: Pupils PERRLA, Red reflex noted, EOM's intact. Eyelids symmetrical without lesions, discharge, or swelling. ENT: Bilateral TM's WNL, External ear normal to inspection, no mastoid TTP, swelling, or erythema, Nasal turbinates WNL, no nasal discharge. Normal dentition, Posterior pharynx WNL, no exudate. Chest: RRR, Normal S1, S2, distal pulses intact. No jugular venous distention, Resp: Lungs clear to auscultation bilaterally, no wheezes, rales, or rhonchi. Musculoskeletal: Normal gait, 5/5 strength to all four extremities. Skin: No suspicious rashes or lesions. Capillary refill less than 2 sec. Neurologic: Cranial nerves II-XII intact. Alert and oriented x 3. DTR's intact. Hematologic/Lymphatic: No ecchymosis, no lymphadenopathy.
[2020-03-04 12:01] LABS: Abs Immature Grans 0.01 10^3/uL (0.0-0.06); Absolute Basophil Count 0.02 10^3/uL (0.0-0.2); Absolute Eosinophil Count 0.12 10^3/uL (0.0-0.7); Absolute Lymphocyte Count 0.38 10^3/uL (1.2-3.4); Absolute Monocyte Count 0.43 10^3/uL (0.1-0.8); Basophils % 0.5; Eosinophils % 2.8; HCT 43.6 % (40.0-50.0); HGB 13.9 g/dL (13.5-17.5); Immature Grans % 0.2; Lymphocytes % 8.7; MCHC 31.9 % (32.0-36.0); MCV 97.1 fL (80-95); MPV 9.8 fL (8.0-11.0); Monocytes % 9.9; Neutrophils % 77.9; Nucleated RBC 0 %; Platelet Count 163 10^3/uL (130-400); RBC 4.49 10^6/uL (4.36-5.78); RDW 12.5 % (11.8-14.1); RDW-SD 44.9 fL; WBC 4.36 10^3/uL (4.4-10.8)
[2020-03-04 12:16] LABS: ALT 43 U/L (16-63); AST 35 U/L (15-37); Albumin 3.6 g/dL (3.4-5.0); Alkaline Phosphatase 58 U/L (46-116); Anion Gap 2.6 mmol/L (3-11); BUN 26 mg/dL (7-18); Bilirubin, Total 0.6 mg/dL (0.2-1.0); CO2 35.4 mmol/L (21.0-32.0); CREATININE 1.16 mg/dL (0.70-1.30); Calcium 9.3 mg/dL (8.5-10.1); Chloride 102 mmol/L (98-107); Glucose 123 mg/dL (74-106); Magnesium 1.9 mg/dL (1.8-2.4); Potassium 4.1 mmol/L (3.5-5.1); Sodium 140 mmol/L (136-145)
[2020-03-04 12:20] LABS: Troponin I 0.28 ng/mL (<0.06)
--- NOTE | 2020-03-04 12:30 | DI.RAD_ITS ---
EXAM: XR CHEST 2V PA LATERAL CLINICAL HISTORY: High blood pressure TECHNIQUE: 2D digital imaging was performed. COMPARISON: CR XR CHEST 2V PA LATERAL from 07/17/2018 CR XR CHEST 2V PA LATERAL from 08/08/2018 CR XR PORTABLE CHEST AP from 01/13/2020 FINDINGS: MEDIASTINUM: Normal. HEART: Mild cardiomegaly. PULMONARY VASCULATURE: Normal. LUNGS: Clear. PLEURAL SPACE: There is blunting of the posterior right costophrenic sulcus which may represent a sma ll pleural effusion or pleural scarring. There is unchanged blunting of the left costophrenic angle. This may represent a persistent small pleural effusion versus pleural scarring. BONE:There is again seen a prominent right thoracic scoliosis. OTHER FINDINGS:Normal. IMPRESSION: Overall, there has been no significant change in the appearance of the chest x-ray since 01/13/2020. Persistent bilateral pleural scarring versus small pleural effusions. No acute pulmonary process. DATA REPOSITORY: RADIATION DOSE DELIVERED:
--- NOTE | 2020-03-04 14:00 | RT.EKG_ITS ---
APPROVED REPORT Exam: Resting ECG Patient Location: E HR:66 bpm ECG Measurements Heart Rate 66 AXIS WA 225 P 71 QRSd 104 QRS 47 QT 400 T [id number] QTc 418 Conclusion Sinus rhythm. WA >220 Left atrial enlargement LVH with secondary repolarization abnormality
== END 2020-03-04 15:05 | disposition home or self-care (01) ==
PROVIDERS: Emergency Provider Registered Nurse Emergency; PCP Family Medicine
DX: I10 Essential (primary) hypertension (principal); I25.10 Atherosclerotic heart disease of native coronary artery without angina pectoris; J44.9 Chronic obstructive pulmonary disease, unspecified; Z87.891 Personal history of nicotine dependence
CPT/HCPCS: 36415; 80053; 93005; 99285; 71046; 83735; 84484; 85025; 93010; 99284

== ENCOUNTER 2020-05-09 13:24 | Emergency (ER) | payer MEDICARE, MEDICAID, SELFPAY ==
[2020-05-09 13:32] VITALS: BP 162/81; PULSE 85; TEMP 36.9; O2SAT 97
--- NOTE | 2020-05-09 14:15 | DI.RAD_ITS ---
EXAM: XR ANKLE LT COMPLETE CLINICAL HISTORY: trauma, left lateral ankle pain. TECHNIQUE: 2D digital imaging was performed. COMPARISON: No exams were available for comparison FINDINGS: There is an oblique mildly displaced fracture of the distal fibula. Medial malleolus and posterior m alleolus are intact. No widening of the mortise. Talar dome unremarkable. Small inferior calcaneal spur noted IMPRESSION: DATA REPOSITORY: RADIATION DOSE DELIVERED:
--- NOTE | 2020-05-09 14:15 | DI.RAD_ITS ---
EXAM: XR TIB/FIB LT CLINICAL HISTORY: trauma, lateral lower leg pain. TECHNIQUE: 2D digital imaging was performed. COMPARISON: No exams were available for comparison FINDINGS: There is an oblique fracture in the distal fibula. No fractures in the proximal fibula. Very subtle suggestion of possible linear lucency in the lateral tibial plateau. Chondrocalcinosis noted in the medial compartment. IMPRESSION: Distal fibular fracture. Subtle finding tibial plateau. Recommend knee films. DATA REPOSITORY: RADIATION DOSE DELIVERED:
--- NOTE | 2020-05-09 14:20 | W.ED.GENAD ---
Discharge Plan Disposition Patient Disposition: HOME Condition: Stable Discharge Details Clinical Impression: Ankle fracture, lateral malleolus, closed, Vertigo Primary Care Provider: Magalie Sanchez ED Provider: Annie Chowdhury Home Meds and New Rx's Prescriptions: Continued aspirin 81 MG tablet,chewable 81 mg PO DAILY RF: 0 B-Complex Plus Vit C (calcium) 1 EACH tablet 1 ea PO DAILY RF: 0 cannabidiol 100 mg/mL Solution 600 mg PO DAILY RF: 0 metoprolol succinate 50 mg tablet extended release 24 hr 50 mg PO DAILY RF: 0 multivitamin [Multi-Day] 1 EACH tablet 2 ea PO DAILY RF: 0 albuterol sulfate [ProAir HFA] 200 PUFF HFA aerosol inhaler 2 puff Inhalation Q4H PRN PRNRF: 0 vitamin E 400 UNIT capsule 400 unit PO DAILY RF: 0 cholecalciferol (vitamin D3) [Vitamin D3] 1,000 UNIT capsule 5,000 unit PO DAILY RF: 0 Fish Oil 1 EACH capsule 1 ea PO DAILY RF: 0 Sheldon-Mag 1 EACH tablet,chewable 1 ea PO DAILY RF: 0 coenzyme [id number] 1 EACH capsule 1 ea PO DAILY RF: 0 acetaminophen [Mapap Extra Strength] 500 MG tablet 500 mg PO PRN PRNRF: 0 oregano oil 1,500 mg Capsule PO RF: 0 No Action multivitamin Tablet 1 tab PO DAILY RF: 0 Discharge Instructions Instructions: Leg Fracture (ED), Vertigo (ED) Additional Instructions: Please return immediately to the emergency department if you develop any new or worsening symptoms, if your condition does not improve as expected, or if you become otherwise concerned. It is extremely important that you call soon as possible to make an appointment to be seen in follow-up for this visit by your primary care doctor, neurology, and orthopedic surgery as we discussed. Referrals: Kartik Orellana MD [ [facility] STAFF PHYSICIAN] - Latha Agarwal MD [ [facility] STAFF PHYSICIAN] - Magalie Sanchez [Primary Care Provider] - Discharge Data Discharge Date/Time-TO BE ENTERED AT DEPARTURE: 05/09/20 16:08 Medical Decision Making Gustavo Noland is a 75-year-old man with multiple medical problems who presented to emergency department with ankle pain pain hearing fall 2012 days ago caused by episode of vertigo. On exam patient is well and nontoxic-appearing. Neurologic exam is nonfocal. There is mild tenderness palpation of the left lateral malleolus and of the left distal fibula. Patient is able to weight-bear with crutches without issue. Concern for possible fracture versus soft tissue injury, possible TIA 12 days ago. Exam/history at this time is not consistent with acute cerebrovascular accident, meningitis, sepsis, other acute emergent life/limb/vision threatening pathology. I discussed patient presentation with Dr. Latha Agarwal of neurology, who agreed with outpatient MRI/MRA for further evaluation for possible TIA and will see patient as an outpatient. Plan for ankle, tib/fib films. X-rays show fracture of the distal fibula. Subtle finding in the lateral tibial plateau, knee x-ray is recommended. On reexamination patient there is no knee pain no knee tenderness, patient reports no mechanism of injury involving the knee. Will hold on x-rays at this time, patient to follow-up as outpatient with orthopedics for fibula fracture, will provide walking boot, patient with his own crutches. Plan for outpatient MRI/MRI and outpatient neurology follow-up. I had a lengthy discussion with Patient regarding return to emergency department precautions, home care, and importance of outpatient follow-up. Pt verbalizes understanding of the plan and is amenable. Patient discharged to home with clear plan for outpatient follow-up. All questions were answered. Disposition decision was made weighing the risks and benefits of hospitalization versus outpatient treatment, the risk for further decompensation, and the patient's wishes. Medical Records Medical records reviewed: Yes I reviewed the patient's medical records. Imaging Data Radiologic Study: Attestation: I personally reviewed and interpreted this imaging study as follows: Radiologist's impression: EXAM: XR TIB/FIB LT CLINICAL HISTORY: trauma, lateral lower leg pain. TECHNIQUE: 2D digital imaging was performed. COMPARISON: No exams were available for comparison FINDINGS: There is an oblique fracture in the distal fibula. No fractures in the proximal fibula. Very subtle suggestion of possible linear lucency in the lateral tibial plateau. Chondrocalcinosis noted in the medial compartment. IMPRESSION: Distal fibular fracture. Subtle finding tibial plateau. Recommend knee films. EXAM: XR ANKLE LT COMPLETE CLINICAL HISTORY: trauma, left lateral ankle pain. TECHNIQUE: 2D digital imaging was performed. COMPARISON: No exams were available for comparison FINDINGS: There is an oblique mildly displaced fracture of the distal fibula. Medial malleolus and posterior malleolus are intact. No widening of the mortise. Talar dome unremarkable. Small inferior calcaneal spur noted HPI General Mode of arrival: ambulatory. Date/Time Provider Initiated Documentation: 05/09/20 13:35. Limitations to Documentation: no limitations. Information obtained by: patient, RN notes reviewed and old records reviewed. HPI Narrative: Gustavo Noland is a 75-year-old man with a history of coronary artery disease, CHF, hypertension, atrial flutter presenting to the emergency department with ankle pain. Patient reports that 12 days ago he had sudden onset sensation of vertigo. Patient was standing at the time, had difficulty staying upright, and fell to the ground. Patient reports that during fall he inverted his left ankle. Patient reports that he fell slowly and did not hit his head. Patient reports that he does not think he had any loss of consciousness. He states that he was able to get up with some assistance, and had mild to moderate left ankle pain afterwards. He was able to bear weight but use 1 crutch to assist him with walking. Patient reports that he woke up from sleep that night with same sensation of motion. Patient reports the next morning sensation had resolved. He reports that he has had continued intermittent mild pain in his left lateral ankle and left lateral distal lower leg. Pain is worse with palpation or if he bangs his leg into something. Patient reports that he came to the emergency department because he was concerned that he might have a fracture given ongoing symptoms. He has continued to weight-bear using 1 crutch to walk with assistance. Patient reports that he has a mild sensation of vertigo in the morning when he wakes up that lasts for under 1 minute, otherwise has had no further vertigo symptoms. Patient reports that he is not having any vertigo symptoms right now. He denies any pain other than ankle pain as previously described, denies fevers, vomiting, diarrhea, shortness of breath increased from baseline, cough, numbness, weakness. Patient does report that he has had mild intermittent sensation of blurriness in his right eye that tends to occur directly after looking into a bright light lasts for a minute or so and then subsides. Patient reports this has been going on for several months, no worsening. He denies any current blurry vision, any eye pain, any eye redness. Patient has scheduled appointments with ophthalmology, pulmonology, and otolaryngology for 05/26/2020 at [facility] for multiple medical problems. Related Data Home Medications Medication Instructions Recorded Confirmed B-Complex Plus Vit C (calcium) 1 ea PO DAILY 07/11/12 05/19/20 aspirin 81 mg PO DAILY 07/11/12 05/19/20 Sheldon-Mag 1 ea PO DAILY 04/02/16 05/19/20 Fish Oil 1 ea PO DAILY 04/02/16 05/19/20 albuterol sulfate [ProAir HFA] 2 puff INHALATION Q4H PRN PRN 04/02/16 05/19/20 cholecalciferol (vitamin D3) 5,000 unit PO DAILY 04/02/16 05/19/20 [Vitamin D3] coenzyme [id number] 1 ea PO DAILY 04/02/16 05/19/20 multivitamin [Multi-Day] 2 ea PO DAILY 04/02/16 05/19/20 vitamin E 400 unit PO DAILY 04/02/16 05/19/20 acetaminophen [Mapap Extra 500 mg PO PRN PRN 04/03/16 05/19/20 Strength] oregano oil mg PO 10/19/19 05/19/20 cannabidiol 600 mg PO DAILY 01/13/20 05/19/20 metoprolol succinate 50 mg PO DAILY 03/04/20 05/19/20 multivitamin 1 tab PO DAILY 05/19/20 05/19/20 Allergies Allergy/AdvReac Type Severity Reaction Status Date / Time carvedilol Allergy Unverified 05/19/20 12:28 General Stated Complaint: Orthopedic SCOTT: 3 Review of Systems Narrative: Constitutional: denies fevers Eyes: denies eye pain, reports right-sided blurry vision per HPI (not currently occurring ENT: denies ear pain, dental pain, sore throat Cardiovascular: denies chest pain Respiratory: denies SOB, cough GI: denies abdominal pain, vomiting, diarrhea : denies flank pain MSK: denies back pain, neck pain, reports left ankle/lower leg pain as per HPI Skin: denies rash Neuro: denies headaches, numbness, weakness, reports vertigo as per HPI [facility] Medical History Acute myocardial infarction 2013 STEMI Anxiety Asthma BPH (benign prostatic hyperplasia) CAD S/P percutaneous coronary angioplasty Cardiomyopathy CHF (congestive heart failure) Chronic obstructive lung disease Elevated LFTs Elevated troponin History of tobacco use HTN (hypertension) Hx of atrial flutter a/w STEMI in 2012; single episode Hx of tongue cancer 2004; s/p chemo and XRT Hyperlipemia Left knee pain Occlusion of right vertebral artery Oxygen dependent 2L NC Pleural effusion, left Psoriasis Pulmonary hypertension Right carotid artery occlusion Surgical History Colonoscopy - [facility] (04/03/16) Coronary Stent 2012 EGD - [facility] History of total right hip arthroplasty S/P TURP tracheostomy Family History Mother Chronic congestive heart failure Father Personal history of malignant neoplasm Lung Cancer Social History Smoking/Tobacco Use Status: Former Tobacco Use Smoking risk assessment performed?: Yes Alcohol Intake: former Drug use: Never Substance use type: does not use, former substance user Date of last use: 30 years and crack/cocaine 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 Exam Narrative Exam Narrative: Constitutional: well and [id number], pleasant, conversing normally HENT: head atraumatic/normocephalic/normal inspection, mucous membranes moist, bilateral TMs and canals normal, nasal cannula oxygen in place Eyes: conjunctiva normal, sclera normal, pupils 3mm b/l, EOMI without nystagmus Neck: no stridor, normal ROM, trachea midline Resp: normal work of breathing, speaking in full sentences Cardio: normal rate, normal rhythm Skin: warm, dry, normal color, no rash Neuro: alert, not altered, cranial nerves II through XII intact, motor 5 out of 5 throughout, normal tone Ext: no edema, mild tenderness palpation of the left lateral malleolus and left distal fibula without deformity/crepitus, DP pulse intact, ranging toes and ankle without pain, normal range of motion of the left knee without pain Psych: normal mood, normal affect, normal behavior Course Vital Signs Vital signs: Vital Signs Temperature 36.9 C 02/22/21 13:32 Pulse 85 05/09/20 13:32 Blood Pressure 162/81 H 05/09/20 13:32 Pulse Oximetry 97 05/09/20 13:32 Temperature 36.9 C 05/09/20 13:32 Temperature Source Oral 05/09/20 13:32 Pulse 85 05/09/20 13:32 Respiratory Effort Non-Labored 05/09/20 13:43 Blood Pressure 162/81 H 05/09/20 13:32 Blood Pressure Position Sitting 05/09/20 13:32 Pulse Oximetry 97 05/09/20 13:32 Oxygen Delivery Method Nasal Cannula 05/09/20 13:32 Oxygen Flow Rate 2 05/09/20 13:32 Pain Level 0 05/09/20 13:32
--- NOTE | 2020-05-09 14:29 | NUR.NOTE ---
Referral faxed to [facility] Neurology for ?TIA follow upNursing Note:
== END 2020-05-09 16:08 | disposition home or self-care (01) ==
PROVIDERS: Emergency Provider Student in an Organized Health Care Education/Training Program; PCP Family Medicine
DX: S82.432A Displaced oblique fracture of shaft of left fibula, initial encounter for closed fracture (principal); W18.30XA Fall on same level, unspecified, initial encounter; R42 Dizziness and giddiness
CPT/HCPCS: 99284; 73590; 73610; 99283

== ENCOUNTER 2020-05-17 09:04 | Outpatient (CLI) | payer MEDICARE, MEDICAID, SELFPAY ==
--- NOTE | 2020-05-17 08:15 | DI.RAD_ITS ---
EXAM: XR ANKLE LT COMPLETE CLINICAL HISTORY: f/u TECHNIQUE: COMPARISON: CR XR ANKLE LT COMPLETE from 05/09/2020 FINDINGS: Three views were obtained. Previously described fracture of the distal fibula is again noted, no carol ann ss interval change in alignment of the fracture fragments comparison previous radiographs of May 09. The ankle mortise is well maintained. IMPRESSION: RADIATION DOSE DELIVERED: Total DLP
== END 2020-05-17 09:05 | disposition home or self-care (01) ==
LOC: DIORS 09:05
PROVIDERS: PCP Family Medicine; Referring Provider Family Medicine; Visit Provider Physician Assistant
DX: S82.492D Other fracture of shaft of left fibula, subsequent encounter for closed fracture with routine healing (principal); S82.63XA Displaced fracture of lateral malleolus of unspecified fibula, initial encounter for closed fracture; W19.XXXA Unspecified fall, initial encounter; I11.0 Hypertensive heart disease with heart failure; I50.9 Heart failure, unspecified
CPT/HCPCS: 99213; 73610

== ENCOUNTER → 2020-05-19 12:20 | Outpatient (BNVA) | payer MEDICARE, MEDICAID, SELFPAY | PROVIDERS: PCP Family Medicine; Referring Provider Family Medicine; Visit Provider Psychiatry & Neurology Neurology | DX: R42 Dizziness and giddiness (principal); I65.21 Occlusion and stenosis of right carotid artery; I65.01 Occlusion and stenosis of right vertebral artery; I11.0 Hypertensive heart disease with heart failure; J44.9 Chronic obstructive pulmonary disease, unspecified; I50.9 Heart failure, unspecified | CPT/HCPCS: 99215; G2212 ==

== ENCOUNTER 2020-05-20 04:27 | Outpatient (CLI) | payer MEDICARE, MEDICAID, SELFPAY ==
--- NOTE | 2020-05-20 | DI.MRI_ITS ---
EXAM: MR ANGIO NECK WO and MR angiography brain without CLINICAL HISTORY: TRANSIENT VERTIGO, R42. TECHNIQUE: Multiplanar multisequence MRA of the Neck was performed. COMPARISON: MR MR BRAIN WO from 05/20/2020 MR MR ANGIO BRAIN WO from 05/20/2020 FINDINGS: Common Carotid: Right: No dissection, occlusion or significant stenosis. Left: No dissection, occlusion or significant stenosis. External Carotid: Right: No evidence of occlusion or significant stenosis. Left: No evidence of occlusion or significant stenosis. Internal Carotid: Right: There is complete occlusion of the right internal carotid artery beginning at the bifurcation. Left: No dissection, occlusion or significant stenosis. Vertebral Artery: Right: There is complete occlusion of the right vertebral artery. Left: No dissection, occlusion or significant stenosis. Carotid Arteries: Right: There is complete occlusion of the right internal carotid artery. Left: No dissection, occlusion or significant stenosis. Anterior Cerebral Arteries: Right: No aneurysm, occlusion or significant stenosis. There is reconstitution of the right anterior cerebral artery via the anterior communicating artery. Left: No aneurysm, occlusion or significant stenosis. Middle Cerebral Arteries: Right: No aneurysm, occlusion or significant stenosis. There is reconstitution of the right middle c erebral artery via the anterior communicating artery. Left: No aneurysm, occlusion or significant stenosis. Posterior Cerebral Arteries: Right: No aneurysm, occlusion or significant stenosis. Left: No aneurysm, occlusion or significant stenosis. Vertebral Arteries: Right: No aneurysm, occlusion or significant stenosis. The distal right vertebral artery reconstitut es and combines with the left vertebral artery to form the basilar artery. Left: No aneurysm, occlusion or significant stenosis. Basilar Artery: No aneurysm, occlusion or significant stenosis. IMPRESSION: 1. Complete occlusion of the right internal carotid artery beginning at the bifurcation. 2. Reconstitution of the right anterior and middle cerebral arteries occurs via the anterior communic ating artery. 3. Occlusion of the right vertebral artery at its origin with reconstitution distally just prior to t he formation of the basilar artery. 4. Findings were discussed with the primary care team at [facility] on 05/20/2020. DATA REPOSITORY:
--- NOTE | 2020-05-20 | DI.MRI_ITS ---
EXAM: MR BRAIN WO CLINICAL HISTORY: TRANSIENT VERTIGO, R42 TECHNIQUE: Multiplanar multisequence MRI of the brain was performed. COMPARISON: No previous for comparison. FINDINGS: VENTRICLES AND EXTRA AXIAL SPACES: Normal in size and morphology for the patient's age. MIDLINE SHIFT: None. CEREBRAL PARENCHYMA: No focus of restricted diffusion to suggest acute infarct. No space-occupying le shahnaz identified. There is an area of encephalomalacia seen at the junction of the right temporal and occipital lobes. HEMORRHAGE: None. BRAINSTEM/CEREBELLUM: Normal. CALVARIUM: Normal. VISUALIZED PARANASAL SINUSES/MASTOIDS:Clear. [place]: There is loss of the normal flow void in the right internal carotid artery consiste nt with occlusion. Please refer to the report of the MR angiography of the brain. [place]: Unremarkable. OTHER FINDINGS: None. IMPRESSION: 1. Occlusion of the right internal carotid artery. 2. No acute infarct or intracranial mass. 3. Encephalomalacia at the junction of the right temporal occipital lobes. DATA REPOSITORY:
== END 2020-05-20 04:47 ==
PROVIDERS: PCP Family Medicine; Visit Provider Student in an Organized Health Care Education/Training Program
DX: I65.21 Occlusion and stenosis of right carotid artery (principal); I65.01 Occlusion and stenosis of right vertebral artery; G93.89 Other specified disorders of brain
CPT/HCPCS: 70544; 70547; 70551

== ENCOUNTER 2020-06-06 10:30 | Outpatient (CLI) | payer MEDICARE, MEDICAID, SELFPAY ==
--- NOTE | 2020-06-06 10:00 | DI.RAD_ITS ---
EXAM: XR ANKLE LT COMPLETE CLINICAL HISTORY: ankle pain. TECHNIQUE: 2D digital imaging was performed. COMPARISON: CR XR ANKLE LT COMPLETE from 05/17/2020 FINDINGS: Cast has been removed. Oblique fracture line in the distal fibula is still evident although there is some mild callus formation. Talar dome unremarkable. No additional fractures. No widening of the mortise. Inferior calcaneal spur is noted. There is no osseous tarsal coalition evident. IMPRESSION: DATA REPOSITORY: RADIATION DOSE DELIVERED:
--- NOTE | 2020-06-06 10:00 | DI.RAD_ITS ---
EXAM: XR LUMBAR SPINE AP, LAT CLINICAL HISTORY: back pain. TECHNIQUE: 2D digital imaging was performed. COMPARISON: No exams were available for comparison FINDINGS: There is scoliosis convex left and multilevel disc space narrowing. No listhesis. No pars defects. Facet degenerative changes lower 2 levels. Sacroiliac joints unremarkable. No osseous lesions. Right hip prosthesis noted IMPRESSION: Multilevel chronic degenerative disc disease. Scoliosis convex left. Facet arthropathy. DATA REPOSITORY: RADIATION DOSE DELIVERED:
== END 2020-06-06 10:31 | disposition home or self-care (01) ==
LOC: DIORS 10:31
PROVIDERS: PCP Family Medicine; Referring Provider Family Medicine; Visit Provider Student in an Organized Health Care Education/Training Program
DX: S82.492D Other fracture of shaft of left fibula, subsequent encounter for closed fracture with routine healing (principal); M47.816 Spondylosis without myelopathy or radiculopathy, lumbar region; M41.86 Other forms of scoliosis, lumbar region; S82.65XD Nondisplaced fracture of lateral malleolus of left fibula, subsequent encounter for closed fracture with routine healing; X58.XXXD Exposure to other specified factors, subsequent encounter; M41.80 Other forms of scoliosis, site unspecified
CPT/HCPCS: 99213; 72100; 73610

== ENCOUNTER → 2020-06-20 12:28 | Outpatient (BNVA) | payer MEDICARE, MEDICAID, SELFPAY | PROVIDERS: PCP Family Medicine; Referring Provider Family Medicine; Visit Provider Psychiatry & Neurology Neurology | DX: R42 Dizziness and giddiness (principal); I65.21 Occlusion and stenosis of right carotid artery; I65.01 Occlusion and stenosis of right vertebral artery; I10 Essential (primary) hypertension | CPT/HCPCS: 99214 ==

== ENCOUNTER 2020-07-12 14:31 | Inpatient (IN) | payer MEDICARE, MEDICAID, SELFPAY ==
[2020-07-12] VITALS (42 sets, daily range): BP systolic 112–172; BP diastolic 67–97; PULSE 66–94; RESP 7–25; TEMP 36–36.7; O2SAT 87–100
--- NOTE | 2020-07-12 14:30 | RT.EKG_ITS ---
APPROVED REPORT Exam: Resting ECG Patient Location: E HR:81 bpm ECG Measurements Heart Rate 81 AXIS OK 190 P 80 QRSd 97 QRS 71 QT 357 T -69 QTc 416 Conclusion Sinus rhythm. Left atrial enlargement LVH
--- NOTE | 2020-07-12 14:45 | DI.RAD_ITS ---
EXAM: XR CHEST 2V PA LATERAL CLINICAL HISTORY: weakness. TECHNIQUE: 2D digital imaging was performed. COMPARISON: CR XR CHEST 2V PA LATERAL from 03/04/2020 FINDINGS: Thoracolumbar scoliosis again noted. Heart size unchanged. Mediastinum is not widened. Chest leads in place. Left lower lobe infiltrate and left pleural effusion noted. Small right pleur al effusion. IMPRESSION: Left lower lobe infiltrate. Bilateral pleural effusions left slightly larger than right. DATA REPOSITORY: RADIATION DOSE DELIVERED:
--- NOTE | 2020-07-12 15:09 | W.ED.GENAD ---
Discharge Plan Disposition Patient Disposition: [facility] INPATIENT Condition: Improving Discharge Details Clinical Impression: Mild shortness of breath, Elevated troponin Admit Date/Time: 07/14/20 12:36 Admit Provider: Barrera Cisse Attending Provider: Barrera Cisse Primary Care Provider: Magalie Sanchez ED Provider: Evelyn Blanco Discharge Data Discharge Date/Time-TO BE ENTERED AT DEPARTURE: 07/12/20 20:35 Medical Decision Making <NANDO Gibbs - Last Filed: 07/15/20 13:43> Patient does not appear to be volume overloaded, and he is relatively asymptomatic at this time, pulse oximetry here Patient did have recent fracture to his fibula so with his intermittent symptoms I will order D-dimer, he has no prior history of known coagulopathy He will also have troponins, his EKG does not show any change when compared to prior, this was discussed my attending physician, Dr. Avina Will order BNP, this is pending at this time Patient does not exhibit any signs or symptoms of volume overload, he is largely asymptomatic He has not had any infectious signs or symptoms reportedly He denies any known sick contacts If his D-dimer is negative, troponin is negative, and have oxygen saturation maintained, I think the patient is stable for discharge home, D-dimer is found to be elevated, 2200, will order CTA of patient's chest Troponin is 0.21, this is actually decreased from prior and he has a chronically elevated troponin, we will recheck this likely prior to discharge Repeat EKG also at 9:00 recommended Patient is chest pain-free at this time Bicarb is trending up, he may need to actually turn down his oxygen, on 2 L. He was found to be at 100% and he may be retaining He is completely alert and oriented, no evidence of encephalopathy If CTA is negative and repeat troponin and EKG are negative, patient is stable for discharge home, has not been hypoxic throughout the evaluation, I will sign patient out to Evelyn Blanco, nurse practitioner pending repeat EKG, troponin, and CTA Differential Diagnosis Differential Diagnosis: Pulmonary embolism, COPD, CHF, pneumonia Medical Records Medical records reviewed: Yes I reviewed the patient's medical records. Lab Data Lab results reviewed: Yes I reviewed the patient's lab results. ECG Data Prior ECG tracings: available for review <Evelyn Blanco NP - Last Filed: 07/12/20 20:05> care of patient received and record reviewed, patient remains monitored in the ED with no further hypoxia. vital remain stable, he remains pain free with no shortness of breath. repeat troponin flat, EKG reviewed with Dr Mee Chowdhury shows changes in lateral leads, st depression. no reciprocal changes noted. CT for PE shows no PE case is discuss with Dr Cisse who accepts patient for observation on telemetry for formal rule out and monitoring. patient is given lorazepam 0.5 mg PO for anxiety routine covid testing prior to admission Medical Records Medical records reviewed: Yes I reviewed the patient's medical records. Imaging Data Radiologic Study: Imaging: X-Ray Radiologist's impression: Exam(s) a RAD:XR chest 2V PA & lateral EXAM: XR CHEST 2V PA LATERAL CLINICAL HISTORY: weakness. TECHNIQUE: 2D digital imaging was performed. COMPARISON: CR XR CHEST 2V PA LATERAL from 03/04/2020 FINDINGS: Thoracolumbar scoliosis again noted. Heart size unchanged. Mediastinum is not widened. Chest leads in place. Left lower lobe infiltrate and left pleural effusion noted. Small right pleural effusion. IMPRESSION: Left lower lobe infiltrate. Bilateral pleural effusions left slightly larger than right. Radiologic Study #2: Imaging: CT Scan Radiologist's impression: Exam(s) a CT:CT chest PE CTA EXAM: CT CHEST PE CTA CLINICAL HISTORY: elevated dimer, shortness of breath. TECHNIQUE: Imaging Protocol: CT angiography of the chest was performed using pulmonary embolus protocol. Multi planar reconstructions were performed. CONTRAST MATERIAL: Intravenous: Omnipaque 350 Contrast volume: 100 cc COMPARISON: CR,XR XR CHEST 2V PA LATERAL from 07/12/2020 FINDINGS: CHEST: PULMONARY ARTERIES: There are no intraluminal filling defects to suggest acute pulmonary emboli. LUNGS: There are bilateral pleural effusions, right larger than left and associated with significant volume loss in the basal segments of the right lower lobe. Lesser amount of atelectasis seen in the left lower lobe and there is some infiltrate in left lower lobe. Pleural effusions appear non loculated.. No ominous pulmonary nodules evident. No focal findings in the trachea and mainstem bronchi. MEDIASTINUM: There is no hilar nor mediastinal adenopathy. Visualized thyroid unremarkable. CARDIAC: Cardiomegaly. No pericardial effusion.No obvious shift of the interventricular septum. Diameter of the ascending thoracic aorta is 4 cm. No evidence of obvious dissection. Coronary artery calcification noted. PARTIALLY VISUALIZED UPPERMOST ABDOMEN: Thoracolumbar scoliosis noted. Stenosis seen at the origin of the celiac artery. Also atherosclerotic disease in the proximal SMA. OSSEOUS: No significant osseous lesions.. IMPRESSION: 1. No evidence of acute pulmonary emboli. No evidence of pulmonary infarction.Bilateral non loculated pleural effusions, larger on the right side and associated with volume loss in the right lower lobe basal segments and and left lower lobe segments. There is some mild infiltrate in the left lower lobe. 2. Cardiomegaly. Dilatation of the ascending thoracic aorta diameter 4 cm. No dissection evident. No pericardial effusion. Coronary artery calcification evident. 3. Significant atherosclerotic disease evident at the origin of the celiac and superior mesenteric arteries. Thoracolumbar scoliosis. No osseous lesions evident. Lab Data Lab results reviewed: Yes I reviewed the patient's lab results. Labs: Laboratory Tests Range/Units 07/12/20 07/12/20 07/12/20 14:59 14:59 14:59 WBC (4.4-10.8) 10^3/uL RBC (4.36-5.78) 10^6/uL Hgb (13.5-17.5) g/dL Hct (40.0-50.0) % MCV (80-95) fL MCH (27.0-33.0) pg MCHC (32.0-36.0) % RDW (11.8-14.1) % Plt Count (130-400) 10^3/uL MPV (8.0-11.0) fL Immature Gran % Neutrophils % Lymphocytes % Monocytes % Eosinophils % Basophils % Nucleated RBC % % Absolute Neutrophils (1.2-6.7) 10^3/uL Absolute Lymphocytes (1.2-3.4) 10^3/uL Absolute Monocytes (0.1-0.8) 10^3/uL Absolute Eosinophils (0.0-0.7) 10^3/uL Absolute Basophils (0.0-0.2) 10^3/uL D-Dimer (<500) ng/mlFEU 2294 H Sodium (136-145) mmol/L 138 Potassium (3.5-5.1) mmol/L 5.0 Chloride (98-107) mmol/L 100 Carbon Dioxide (21.0-32.0) mmol/L 39.0 H Anion Gap (3-11) mmol/L -1.0 L BUN (7-18) mg/dL 23 H Creatinine (0.70-1.30) mg/dL 1.4 H Estimated GFR/1.73 m2 (mL/min/1.73m2) 49.54 Glucose (74-106) mg/dL 135 H Calcium (8.5-10.1) mg/dL 9.5 Magnesium (1.8-2.4) mg/dL 2.0 Total Bilirubin (0.2-1.0) mg/dL 0.5 AST (15-37) U/L 37 ALT (16-63) U/L 55 Alkaline Phosphatase (46-116) U/L 71 Troponin I (<0.06) ng/mL 0.21 H* NT-Pro-B Natriuret Pep (<300) pg/mL 2002 H Total Protein (6.4-8.2) g/dL 6.9 Albumin (3.4-5.0) g/dL 3.3 L Urine Color (Yellow) Urine Clarity (Clear) Urine pH (5-8) Ur Specific [place] (1.005-1.025) Urine Protein (Negative) mg/dL Urine Ketones (Negative) mg/dL Urine Blood (Negative) Urine Nitrite (Negative) Urine Bilirubin (Negative) Urine Urobilinogen (Up TO 0.2) EU/dL Ur Leukocyte Esterase (Negative) Urine RBC (0-2) HPF Urine WBC (0-5) HPF Ur Epithelial Cells (Negative) HPF Urine Crystals (Negative) HPF Urine Bacteria (Negative) HPF Urine Casts (Negative) LPF Urine Mucus (Negative) Urine Other (Negative) Ur Culture Indicated? Urine Glucose (Negative) mg/dL COVID-19 Source Range/Units 07/12/20 07/12/20 07/12/20 15:10 16:50 18:01 WBC (4.4-10.8) 10^3/uL 5.30 RBC (4.36-5.78) 10^6/uL 4.19 L Hgb (13.5-17.5) g/dL 13.1 L Hct (40.0-50.0) % 42.0 MCV (80-95) fL 100.2 H MCH (27.0-33.0) pg 31.3 MCHC (32.0-36.0) % 31.2 L RDW (11.8-14.1) % 12.9 Plt Count (130-400) 10^3/uL 208 MPV (8.0-11.0) fL 9.3 Immature Gran % 0.2 Neutrophils % 85.4 Lymphocytes % 6.0 Monocytes % 7.2 Eosinophils % 0.8 Basophils % 0.4 Nucleated RBC % % 0 Absolute Neutrophils (1.2-6.7) 10^3/uL 4.53 Absolute Lymphocytes (1.2-3.4) 10^3/uL 0.32 L Absolute Monocytes (0.1-0.8) 10^3/uL 0.38 Absolute Eosinophils (0.0-0.7) 10^3/uL 0.04 Absolute Basophils (0.0-0.2) 10^3/uL 0.02 D-Dimer (<500) ng/mlFEU Sodium (136-145) mmol/L Potassium (3.5-5.1) mmol/L Chloride (98-107) mmol/L Carbon Dioxide (21.0-32.0) mmol/L Anion Gap (3-11) mmol/L BUN (7-18) mg/dL Creatinine (0.70-1.30) mg/dL Estimated GFR/1.73 m2 (mL/min/1.73m2) Glucose (74-106) mg/dL Calcium (8.5-10.1) mg/dL Magnesium (1.8-2.4) mg/dL Total Bilirubin (0.2-1.0) mg/dL AST (15-37) U/L ALT (16-63) U/L Alkaline Phosphatase (46-116) U/L Troponin I (<0.06) ng/mL 0.21 H* NT-Pro-B Natriuret Pep (<300) pg/mL Total Protein (6.4-8.2) g/dL Albumin (3.4-5.0) g/dL Urine Color (Yellow) Yellow Urine Clarity (Clear) Clear Urine pH (5-8) 6.5 Ur Specific [place] (1.005-1.025) 1.020 Urine Protein (Negative) mg/dL 100 H Urine Ketones (Negative) mg/dL Negative Urine Blood (Negative) Negative Urine Nitrite (Negative) Negative Urine Bilirubin (Negative) Negative Urine Urobilinogen (Up TO 0.2) EU/dL 0.2 Ur Leukocyte Esterase (Negative) Negative Urine RBC (0-2) HPF Negative Urine WBC (0-5) HPF Negative Ur Epithelial Cells (Negative) HPF Rare Urine Crystals (Negative) HPF Negative Urine Bacteria (Negative) HPF Negative Urine Casts (Negative) LPF Negative Urine Mucus (Negative) Trace Urine Other (Negative) Negative Ur Culture Indicated? No Urine Glucose (Negative) mg/dL Negative COVID-19 Source Range/Units 07/12/20 19:30 WBC (4.4-10.8) 10^3/uL RBC (4.36-5.78) 10^6/uL Hgb (13.5-17.5) g/dL Hct (40.0-50.0) % MCV (80-95) fL MCH (27.0-33.0) pg MCHC (32.0-36.0) % RDW (11.8-14.1) % Plt Count (130-400) 10^3/uL MPV (8.0-11.0) fL Immature Gran % Neutrophils % Lymphocytes % Monocytes % Eosinophils % Basophils % Nucleated RBC % % Absolute Neutrophils (1.2-6.7) 10^3/uL Absolute Lymphocytes (1.2-3.4) 10^3/uL Absolute Monocytes (0.1-0.8) 10^3/uL Absolute Eosinophils (0.0-0.7) 10^3/uL Absolute Basophils (0.0-0.2) 10^3/uL D-Dimer (<500) ng/mlFEU Sodium (136-145) mmol/L Potassium (3.5-5.1) mmol/L Chloride (98-107) mmol/L Carbon Dioxide (21.0-32.0) mmol/L Anion Gap (3-11) mmol/L BUN (7-18) mg/dL Creatinine (0.70-1.30) mg/dL Estimated GFR/1.73 m2 (mL/min/1.73m2) Glucose (74-106) mg/dL Calcium (8.5-10.1) mg/dL Magnesium (1.8-2.4) mg/dL Total Bilirubin (0.2-1.0) mg/dL AST (15-37) U/L ALT (16-63) U/L Alkaline Phosphatase (46-116) U/L Troponin I (<0.06) ng/mL NT-Pro-B Natriuret Pep (<300) pg/mL Total Protein (6.4-8.2) g/dL Albumin (3.4-5.0) g/dL Urine Color (Yellow) Urine Clarity (Clear) Urine pH (5-8) Ur Specific [place] (1.005-1.025) Urine Protein (Negative) mg/dL Urine Ketones (Negative) mg/dL Urine Blood (Negative) Urine Nitrite (Negative) Urine Bilirubin (Negative) Urine Urobilinogen (Up TO 0.2) EU/dL Ur Leukocyte Esterase (Negative) Urine RBC (0-2) HPF Urine WBC (0-5) HPF Ur Epithelial Cells (Negative) HPF Urine Crystals (Negative) HPF Urine Bacteria (Negative) HPF Urine Casts (Negative) LPF Urine Mucus (Negative) Urine Other (Negative) Ur Culture Indicated? Urine Glucose (Negative) mg/dL COVID-19 Source Nasal/nares ECG Data Interpretation: EKG read by Dr Carlos Chowdhury, please see his interpretation. non specific EKG changes to lateral leads <Carlos Chowdhury MD - Last Filed: 07/22/20 20:15> Patient seen and case discussed with DARLENE Blanco. Patient initially reluctant to stay for hospitalization. I discussed results with him and limitations of diagnostic capability here in the emergency department and recommendation for observation given his known cardiac disease and comorbidities as well as persistently elevated troponin and EKG today with changes compared to prior EKG 2019 and also with subtle changes laterally between initial and follow-up EKG performed today. Troponin is elevated but stable. It has been elevated frequently in the past. Patient has no chest pain at this time. I agree with treatment plan as discussed/documented. DARLENE Blanco to discuss case with admitting physician Dr. Cisse. HPI <NANDO Gibbs - Last Filed: 07/15/20 13:43> General Mode of arrival: ambulatory. Date/Time Provider Initiated Documentation: 07/12/20 14:37. Limitations to Documentation: no limitations. Information obtained by: patient. HPI Narrative: This 75-year-old gentleman with history of vertebral artery occlusion, cardiac arrest with LAD stent, atrial flutter, hypertension, MARIIA, cath in 2012, COPD, oxygen dependent who presents for evaluation of reported progressive weakness since April. He states that he had a fracture at that time. Fibula has been ambulatory on it. This approximately 10 weeks ago. He states that today he checked his pulse oximeter and noted that it was 75 oxygen saturation and he was tachycardic greater than 100 which is unusual for him. He states the only medication he takes is metoprolol, this is unchanged. He denies any headache or dizziness. He had intermittent shortness of breath that is not dramatically worsened. He denies any current chest discomfort. He denies any new calf pain or swelling. He does not take diuretics reportedly. He does use oxygen at home. He states with oxygen his saturation is usually 95%. Related Data Home Medications Medication Instructions Recorded Confirmed B-Complex Plus Vit C (calcium) 1 ea PO DAILY 07/11/12 07/22/20 Sheldon-Mag 1 ea PO DAILY 04/02/16 07/22/20 Fish Oil 1 ea PO DAILY 04/02/16 07/22/20 cholecalciferol (vitamin D3) 5,000 unit PO DAILY 04/02/16 07/22/20 [Vitamin D3] coenzyme [id number] 1 ea PO DAILY 04/02/16 07/22/20 multivitamin [Multi-Day] 2 ea PO DAILY 04/02/16 07/22/20 vitamin E 400 unit PO DAILY 04/02/16 07/22/20 acetaminophen [Mapap Extra 500 mg PO PRN PRN 04/03/16 07/22/20 Strength] cannabidiol 600 mg PO DAILY 01/13/20 07/22/20 metoprolol succinate 50 mg PO DAILY 03/04/20 07/22/20 budesonide-formoterol [Symbicort] 2 puff INHALATION BID #10.2 g 07/17/20 07/22/20 levalbuterol tartrate [Xopenex HFA] 2 puff INHALATION Q4H PRN PRN #15 g 07/17/20 07/22/20 aspirin 81 mg tablet,delayed 81 mg PO DAILY 07/21/20 07/22/20 release furosemide 20 mg tablet 20 mg PO DAILY #90 tab 07/21/20 07/22/20 guaifenesin 600 mg tablet, 600 mg PO BID PRN tab 07/21/20 07/22/20 extended release 12 hr spironolactone 25 mg tablet 12.5 mg PO DAILY #45 tab 07/21/20 07/22/20 Previous Rx's Medication Instructions Recorded budesonide-formoterol [Symbicort] 2 puff INHALATION BID #10.2 g 07/17/20 levalbuterol tartrate [Xopenex HFA] 2 puff INHALATION Q4H PRN PRN #15 g 07/17/20 furosemide 20 mg tablet 20 mg PO DAILY #90 tab 07/21/20 spironolactone 25 mg tablet 12.5 mg PO DAILY #45 tab 07/21/20 Allergies Allergy/AdvReac Type Severity Reaction Status Date / Time carvedilol Allergy Unverified 07/22/20 18:18 General Stated Complaint: RespSymp SCOTT: 2 Review of Systems <NANDO Gibbs - Last Filed: 07/15/20 13:43> Narrative: Review of systems obtained x7 aside from where indicated in HPI PFSH <NANDO Gibbs - Last Filed: 07/15/20 13:43> Medical History Acute myocardial infarction 2012 STEMI Anxiety Asthma BPH (benign prostatic hyperplasia) CAD S/P percutaneous coronary angioplasty Cardiomyopathy CHF (congestive heart failure) Chronic obstructive lung disease Elevated LFTs Elevated troponin History of tobacco use HTN (hypertension) Hx of atrial flutter a/w STEMI in 2012; single episode Hx of tongue cancer 2004; s/p chemo and XRT Hyperlipemia Left knee pain Occlusion of right vertebral artery Oxygen dependent 2L NC Palliative care patient Pleural effusion, left Psoriasis Pulmonary hypertension Right carotid artery occlusion Surgical History Colonoscopy - [facility] (04/03/16) Coronary Stent 2012 EGD - [facility] History of total right hip arthroplasty S/P TURP tracheostomy Family History Mother Chronic congestive heart failure Father Personal history of malignant neoplasm Lung Cancer Social History Smoking/Tobacco Use Status: Former Tobacco Use Smoking risk assessment performed?: Yes Alcohol Intake: former Drug use: Never Substance use type: does not use, former substance user Date of last use: 30 years and crack/cocaine Details: No ETOH since 1987. States he does use CBD oil and may have drank some today. 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 Exam <NANDO Gibbs - Last Filed: 07/15/20 13:43> Const General: cooperative, no acute distress and frail appearing Chest Chest: normal inspection of the chest Resp Effort & Inspection: normal respiratory effort Auscultation: clear to auscultation bilaterally Cardio Rate: regular rate Rhythm: regular rhythm GI Inspection: normal to inspection Palpation: nontender Skin General skin exam: no rashes or lesions noted Neuro General: patient alert and patient oriented x3 Extrem Other: No calf tenderness or swelling appreciated on exam <Evelyn Blanco NP - Last Filed: 07/12/20 20:05> Psych Appearance: grossly normal Mental Status: mental status grossly normal Mood: anxious mood and labile mood Affect: labile affect and anxious affect Attitude: guarded Course <NANDO Gibbs - Last Filed: 07/15/20 13:43> Vital Signs Vital signs: Vital Signs Temperature 36.7 C 07/12/20 14:46 Pulse 82 07/12/20 14:46 Blood Pressure 118/78 07/12/20 14:46 Pulse Oximetry 100 07/12/20 14:46 Temperature 36.7 C 07/12/20 14:46 Temperature Source Skin 07/12/20 14:46 Pulse 82 07/12/20 14:46 Blood Pressure 118/78 07/12/20 14:46 Blood Pressure Position Sitting 07/12/20 14:46 Pulse Oximetry 100 07/12/20 14:46 Oxygen Delivery Method Nasal Cannula 07/12/20 14:46 Oxygen Flow Rate 2 07/12/20 14:46 Pain Level 0 07/12/20 14:46 Sign Out <NANDO Gibbs - Last Filed: 07/15/20 13:43> Sign Out Data: Sign Out Comment: pending cta/trop/ekg Last updated by Celina Portillo PA at 07/12/20 16:24
[2020-07-12 15:25] LABS: Abs Immature Grans 0.01 10^3/uL (0.0-0.06); Absolute Basophil Count 0.02 10^3/uL (0.0-0.2); Absolute Eosinophil Count 0.04 10^3/uL (0.0-0.7); Absolute Lymphocyte Count 0.32 10^3/uL (1.2-3.4); Absolute Monocyte Count 0.38 10^3/uL (0.1-0.8); Absolute Neutrophil Count 4.53 10^3/uL (1.2-6.7); Basophils % 0.4; Eosinophils % 0.8; HGB 13.1 g/dL (13.5-17.5); Immature Grans % 0.2; MCH 31.3 pg (27.0-33.0); MCHC 31.2 % (32.0-36.0); MCV 100.2 fL (80-95); MPV 9.3 fL (8.0-11.0); Monocytes % 7.2; Neutrophils % 85.4; Nucleated RBC 0 %; Platelet Count 208 10^3/uL (130-400); RBC 4.19 10^6/uL (4.36-5.78); RDW 12.9 % (11.8-14.1); RDW-SD 47.8 fL
[2020-07-12 15:54] LABS: ALT 55 U/L (16-63); AST 37 U/L (15-37); Albumin 3.3 g/dL (3.4-5.0); Alkaline Phosphatase 71 U/L (46-116); BUN 23 mg/dL (7-18); Bilirubin, Total 0.5 mg/dL (0.2-1.0); CREATININE 1.4 mg/dL (0.70-1.30); Calcium 9.5 mg/dL (8.5-10.1); Chloride 100 mmol/L (98-107); Estimated GFR 49.54 (mL/min/1.73m2); Glucose 135 mg/dL (74-106); NT-proBNP 2002 pg/mL (<300); Sodium 138 mmol/L (136-145); Total Protein 6.9 g/dL (6.4-8.2)
[2020-07-12 15:58] LABS: Troponin I 0.21 ng/mL (<0.06)
--- NOTE | 2020-07-12 16:00 | DI.CT_ITS ---
EXAM: CT CHEST PE CTA CLINICAL HISTORY: elevated dimer, shortness of breath. TECHNIQUE: Imaging Protocol: CT angiography of the chest was performed using pulmonary embolus kelton col. Multi planar reconstructions were performed. CONTRAST MATERIAL: Intravenous: Omnipaque 350 Contrast volume: 100 cc COMPARISON: CR,XR XR CHEST 2V PA LATERAL from 07/12/2020 FINDINGS: CHEST: PULMONARY ARTERIES: There are no intraluminal filling defects to suggest acute pulmonary emboli. LUNGS: There are bilateral pleural effusions, right larger than left and associated with significant volume loss in the basal segments of the right lower lobe. Lesser amount of atelectasis seen in the left lower lobe and there is some infiltrate in left lower lobe. Pleural effusions appear non locula carlos.. No ominous pulmonary nodules evident. No focal findings in the trachea and mainstem bronchi. MEDIASTINUM: There is no hilar nor mediastinal adenopathy. Visualized thyroid unremarkable. CARDIAC: Cardiomegaly. No pericardial effusion.No obvious shift of the interventricular septum. Di ameter of the ascending thoracic aorta is 4 cm. No evidence of obvious dissection. Coronary artery calcification noted. PARTIALLY VISUALIZED UPPERMOST ABDOMEN: Thoracolumbar scoliosis noted. Stenosis seen at the origin o f the celiac artery. Also atherosclerotic disease in the proximal SMA. OSSEOUS: No significant osseous lesions.. IMPRESSION: 1. No evidence of acute pulmonary emboli. No evidence of pulmonary infarction.Bilateral non loculate d pleural effusions, larger on the right side and associated with volume loss in the right lower lobe basal segments and and left lower lobe segments. There is some mild infiltrate in the left lower lo be. 2. Cardiomegaly. Dilatation of the ascending thoracic aorta diameter 4 cm. No dissection evident. No pericardial effusion. Coronary artery calcification evident. 3. Significant atherosclerotic disease evident at the origin of the celiac and superior mesenteric ar teries. Thoracolumbar scoliosis. No osseous lesions evident. RADIATION DOSE DELIVERED: 369.75mGy.cm Total DLP DATA REPOSITORY: All CT scans at this facility are submitted to the National Radiology Data Registry (NRDR) Dose Index Registry (DIR) with the [employer] ([employer]). RADIATION OPTIMIZATION: All CT scans at this facility use at least one of these dose optimization te chniques: automated exposure control; mA and/or kV adjustment per patient size (includes targeted exa ms where dose is matched to clinical indication); or iterative reconstruction.
[2020-07-12 16:03] LABS: D-Dimer 2294 ng/mlFEU (<500)
--- NOTE | 2020-07-12 16:15 | RT.EKG_ITS ---
APPROVED REPORT Exam: Resting ECG Patient Location: E HR:81 bpm ECG Measurements Heart Rate 81 AXIS TN 185 P 70 QRSd 102 QRS 54 QT 366 T -70 QTc 425 Conclusion Sinus rhythm...normal P axis, V-rate 60- 99 Left atrial enlargement...P, P'>60mS, <-0.15mV V1 Nonspecific repol abnormality, lateral leads...ST dep, T neg, I aVL V5 V6
--- NOTE | 2020-07-12 16:38 | DI.VRAD_ITS ---
PROCEDURE INFORMATION: Exam: XR Chest Exam date and time: 07/12/2020 4:04 PM Age: 75 years old Clinical indication: Other: Weakness TECHNIQUE: Imaging protocol: XR of the chest. Views: 2 views. COMPARISON: CR XR CHEST 2V PA LATERAL 03/04/2020 2:15 PM FINDINGS: Lungs: Infiltrate with areas of consolidation in lower lung, new since 03/04/2020. Pleural spaces: New small right pleural effusion. Stable small left pleural effusion. Heart/Mediastinum: Unremarkable. No cardiomegaly. Vasculature: Aortic calcifications. Bones/joints: Thoracic curve, convex to the right. Degenerative arthritis in the spine. IMPRESSION: 1. New area of consolidation and infiltrate in the lower lung. 2. Small bilateral pleural effusions, larger on the left. Dictated and Authenticated by: Lilo Mai MD. Ordering:MILAGROS Patrick MD
[2020-07-12 17:02] LABS: Bilirubin Negative (Negative); Blood Negative (Negative); Clarity Clear (Clear); Glucose Negative (Negative); Ketones Negative (Negative); Leukocyte Esterase Negative (Negative); Nitrite Negative (Negative); Urobilinogen 0.2 EU/dL (Up TO 0.2); pH 6.5 (5-8)
[2020-07-12] MEDS: Normal Saline - Diluent 50 ML VIAL IV (17:08)
[2020-07-12 17:15] LABS: Bacteria Negative HPF (Negative); C & S Indicated? No; Casts Negative LPF (Negative); Crystals Negative HPF (Negative); Epithelial Cells Rare HPF (Negative); Mucus Trace (Negative); Other Cells Negative (Negative); RBC Negative HPF (0-2); WBC Negative HPF (0-5)
--- NOTE | 2020-07-12 17:30 | DI.VRAD_ITS ---
PROCEDURE INFORMATION: Exam: CTA Chest With Contrast Exam date and time: 07/12/2020 4:13 PM Age: 75 years old Clinical indication: Shortness of breath and other: Elevated dimer TECHNIQUE: Imaging protocol: Computed tomographic angiography of the chest with contrast. 3D rendering (Not supervised by radiologist): MIP and/or 3D reconstructed images were created by the technologist. Radiation optimization: All CT scans at this facility use at least one of these dose optimization techniques: automated exposure control; mA and/or kV adjustment per patient size (includes targeted exams where dose is matched to clinical indication); or iterative reconstruction. Contrast material: VISIPAQUE; Contrast volume: 100 ml; Contrast route: INTRAVENOUS (IV); COMPARISON: CR XR CHEST 2V PA LATERAL 03/04/2020 2:15 PM FINDINGS: Pulmonary arteries: Normal. No pulmonary emboli. Aorta: Aneurysm ascending thoracic aorta measuring 4 x 4 cm in AP and transverse dimensions. Other arteries: Dense atheromatous calcification at the origin of the celiac artery where there is at least a 50% diameter reduction. Lungs: Atelectasis of both lower lobes, right worse than. Pleural spaces: Large right and moderate pleural effusions. Heart: Diffuse vascular calcifications including coronary artery calcifications. Cardiomegaly. Lymph nodes: Unremarkable. No enlarged lymph nodes. Bones/joints: Degenerative arthritis in the spine. No acute fracture. Soft tissues: Unremarkable. Other findings: Thoracic curve, convex to the right. IMPRESSION: 1. No pulmonary embolism identified. 2. 4 x 4 cm ascending thoracic aortic aneurysm. 3. Large right and moderate left pleural effusions 4. 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 Ordering:MILAGROS Patrick MD
--- NOTE | 2020-07-12 17:56 | NUR.NOTE ---
Pt provided with turkey sandwich, sridhar krishna.
[2020-07-12 19:05] LABS: Troponin I 0.21 ng/mL (<0.06)
[2020-07-12] MEDS: LORazepam 0.5 MG TAB PO (19:38)
[2020-07-12 19:40] LABS: Source Nasal/Nares
--- NOTE | 2020-07-12 19:47 | W.PM.HP.N ---
Date of service: 07/12/20 Time of Service: 19:47 Assessment and Plan Assessment and plan (1) Hypoxemia: Start date: 07/12/20 Status: Acute Assessment and plan: This is a 75-year-old gentleman who presented to the ED with tachycardia and new hypoxemia. He has been having intermittent increased dyspnea with exertion since a fall injuring his left ankle in April 2020. He had a negative evaluation for PE and had no significant cardiac arrhythmias in the ED. He will be observed overnight with telemetry and trending his elevated troponins which appear to be flat. He has no acute EKG changes. His D-dimer was positive but this may be chronic. If he is stable he would be discharged home to continue further evaluation as an outpatient with his physical security manager. He also may want to see pulmonology. He is a full code. (2) Elevated troponin level not due to acute coronary syndrome: Status: Chronic Assessment and plan: Patient has chronically elevated troponins and these appear to be lower than recent measurements with at least 2 troponins flat and the third troponin decreasing. Trend troponins overnight with follow-up in the morning. Continue cardiac monitoring. (3) CAD S/P percutaneous coronary angioplasty: Status: Chronic Assessment and plan: Patient has significant cardiac disease with cardiac arrest and catheterization with stenting in 2012. No evidence of acute ischemia. Follow-up cardiology as an outpatient. (4) CHF (congestive heart failure): Status: Chronic Assessment and plan: Patient has had a recent echocardiogram at [facility] in the fall 2019 and may need follow-up with echocardiogram repeat as an outpatient. He also may need further testing such as nuclear stress test. He has having increasing dyspnea with exertion over the last 2 months and this may be significant for change in this disease process. He does not appear to have any acute ischemic changes or changes in troponin which are chronically elevated. Qualifiers: Heart failure type: biventricular Qualified Code(s): I50.82 - Biventricular heart failure History of Present Illness History of Present Illness Chief Complaint: Dyspnea with hypoxemia and tachycardia Narrative: This is a 75-year-old gentleman presented to the ED with hypoxemia and tachycardia as well as intermittent dyspnea which has been increasing recently since a fall April 28, 2020 at which time he felt vertiginous but also lightheaded and fell over to his left side after missing a step, awakening on his side against the wall. He had a sore ankle which he walked on for several days before having it checked out and was found to have a fibular fracture for which she was given a walking boot. He did not wear the walking boot because of discomfort and this healed without sequela. He had no persistent edema of the lower extremity. On the day of presentation the patient was having increased dyspnea as he had been having since his fall and was found to be tachycardic in the 100's with a pulse oximeter in the range of 75% at home. He chronically is on oxygen per nasal cannula with COPD. In the ED his pulse oximeter was over 90% and lab evaluation along with CTA of the chest and EKG were unrevealing. He did have an elevated D-dimer and an elevated troponin both of which are chronic. 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 He only uses intermittent rescue inhaler for his breathing. On oxygen at home, his pulse oximeter usually runs 95%. He also has a significant history of cardiac arrest with cardiac catheterization and stenting of his LAD in 2012 after which time he has had ischemic cardiomyopathy with recovered left ventricular ejection fraction from the 20% range to the 30% range. He becomes easily agitated when reviewing his history and is irritated with specific questions especially about smoking and wonders why the interviewer does not know his history by record review. He is a strong believer that the COVID-19 vaccine is not needed and that COVID-19 is a hoax. He did test negative for COVID-19 upon presentation. The patient was admitted for observation because of his new onset symptoms to monitor cardiac rhythm with a history of atrial flutter and his CAD. He also has a history of chronic kidney disease and as stated, COPD with oxygen dependence as well as chronically elevated troponins. He is on minimal medications including metoprolol stating that he is allergic to carvedilol. Pertinent review of systems negative for any swelling in his left lower extremity with his recent fibular fracture and he has had no weight gain. He denies any PND. The patient denies any chest pain or pressure with dyspnea being his manifestation of angina in the past. He did not seek evaluation with his syncopal episode in April 2020. He is a full code. Review of Systems Narrative: 13 point review of systems otherwise unrevealing or stable. [facility] Medical History Acute myocardial infarction 2012 STEMI Anxiety Asthma BPH (benign prostatic hyperplasia) CAD S/P percutaneous coronary angioplasty Cardiomyopathy CHF (congestive heart failure) Chronic obstructive lung disease Elevated LFTs Elevated troponin History of tobacco use HTN (hypertension) Hx of atrial flutter a/w STEMI in 2012; single episode Hx of tongue cancer 2004; s/p chemo and XRT Hyperlipemia Left knee pain Occlusion of right vertebral artery Oxygen dependent 2L NC Pleural effusion, left Psoriasis Pulmonary hypertension Right carotid artery occlusion Surgical History Colonoscopy - MAC (04/03/16) Coronary Stent 2012 EGD - MAC History of total right hip arthroplasty S/P TURP tracheostomy Family History Mother Chronic congestive heart failure Father Personal history of malignant neoplasm Lung Cancer Social History Smoking/Tobacco Use Status: Former Tobacco Use Smoking risk assessment performed?: Yes Alcohol Intake: former Drug use: Never Substance use type: does not use, former substance user Date of last use: 30 years and crack/cocaine 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 Meds Allergies and Home Medications Allergies Allergy/AdvReac Type Severity Reaction Status Date / Time carvedilol Allergy Unverified 07/12/20 15:08 Home Medications Medication Instructions Recorded Confirmed Type B-Complex Plus Vit C (calcium) 1 ea PO DAILY 07/11/12 07/12/20 History Sheldon-Mag 1 ea PO DAILY 04/02/16 07/12/20 History Fish Oil 1 ea PO DAILY 04/02/16 07/12/20 History albuterol sulfate [ProAir HFA] 2 puff INHALATION Q4H PRN PRN 04/02/16 07/12/20 History cholecalciferol (vitamin D3) 5,000 unit PO DAILY 04/02/16 07/12/20 History [Vitamin D3] coenzyme [id number] 1 ea PO DAILY 04/02/16 07/12/20 History multivitamin [Multi-Day] 2 ea PO DAILY 04/02/16 07/12/20 History vitamin E 400 unit PO DAILY 04/02/16 07/12/20 History acetaminophen [Mapap Extra 500 mg PO PRN PRN 04/03/16 07/12/20 History Strength] oregano oil mg PO 10/19/19 05/19/20 History cannabidiol 600 mg PO DAILY 01/13/20 07/12/20 History metoprolol succinate 50 mg PO DAILY 03/04/20 07/12/20 History guaifenesin [Mucinex] 600 mg PO BID #14 tab 07/12/20 Rx Exam Narrative Exam Narrative: General: Patient appears appropriate for age, alert and oriented x3 and in no acute distress. HEENT: Normocephalic, eyes with pupils equal and reactive to light symmetrically, extraocular movement intact and sclera anicteric. Oropharynx with moist mucosa and fair dentition. Neck: Supple without JVD. Lungs: Bronchovesicular breath sounds diffusely with fair aeration, no focalizing rales or rhonchi. Back: Normal posture with no CVA tenderness. Heart: Regular rate and rhythm with 3/6 holosystolic murmur apex and no gallops. Abdomen: Scaphoid contour, soft and nontender to palpation with no palpable hepatosplenomegaly. Genitalia/rectal: Exam deferred. Extremities: Without clubbing, cyanosis or edema. Joints have fair range of motion. Left ankle without tenderness but decreased range of motion. Peripheral pulses intact. Skin: Well tanned, normal color otherwise with normal turgor. Warm and dry. Neuro: Cranial nerves II through XII gross intact, no focalizing motor deficits. Psych: Easily agitated but normal affect and mood. Patient ruminates over details of his history and appears to have an element of denial as coping. No abnormal thought process. Remote and recent memory intact. Results Imaging Imaging Studies: Exam: XR Chest Exam date and time: 07/12/2020 4:04 PM Age: 75 years old Clinical indication: Other: Weakness TECHNIQUE: Imaging protocol: XR of the chest. Views: 2 views. COMPARISON: CR XR CHEST 2V PA LATERAL 03/04/2020 2:15 PM FINDINGS: Lungs: Infiltrate with areas of consolidation in lower lung, new since 03/04/2020. Pleural spaces: New small right pleural effusion. Stable small left pleural effusion. Heart/Mediastinum: Unremarkable. No cardiomegaly. Vasculature: Aortic calcifications. Bones/joints: Thoracic curve, convex to the right. Degenerative arthritis in the spine. IMPRESSION: 1. New area of consolidation and infiltrate in the lower lung. 2. Small bilateral pleural effusions, larger on the left. Exam: CTA Chest With Contrast Exam date and time: 07/12/2020 4:13 PM Age: 75 years old Clinical indication: Shortness of breath and other: Elevated dimer TECHNIQUE: Imaging protocol: Computed tomographic angiography of the chest with contrast. 3D rendering (Not supervised by radiologist): MIP and/or 3D reconstructed images were created by the technologist. Radiation optimization: All CT scans at this facility use at least one of these dose optimization techniques: automated exposure control; mA and/or kV adjustment per patient size (includes targeted exams where dose is matched to clinical indication); or iterative reconstruction. Contrast material: VISIPAQUE; Contrast volume: 100 ml; Contrast route: INTRAVENOUS (IV); COMPARISON: CR XR CHEST 2V PA LATERAL 03/04/2020 2:15 PM FINDINGS: Pulmonary arteries: Normal. No pulmonary emboli. Aorta: Aneurysm ascending thoracic aorta measuring 4 x 4 cm in AP and transverse dimensions. Other arteries: Dense atheromatous calcification at the origin of the celiac artery where there is at least a 50% diameter reduction. Lungs: Atelectasis of both lower lobes, right worse than. Pleural spaces: Large right and moderate pleural effusions. Heart: Diffuse vascular calcifications including coronary artery calcifications. Cardiomegaly. Lymph nodes: Unremarkable. No enlarged lymph nodes. Bones/joints: Degenerative arthritis in the spine. No acute fracture. Soft tissues: Unremarkable. Other findings: Thoracic curve, convex to the right. IMPRESSION: 1. No pulmonary embolism identified. 2. 4 x 4 cm ascending thoracic aortic aneurysm. 3. Large right and moderate left pleural effusions 4. 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 Left ventricle: The cavity size was dilated. Wall thickness was normal. Systolic function was severely reduced. The estimated ejection fraction was 20-25%. Severe diffuse hypokinesis with regional variations. Akinesis of the inferolateral and inferior myocardium. 2. Right ventricle: The cavity size was mildly dilated. Systolic function was reduced. 3. Left atrium: The atrium was mildly dilated. 4. Mitral valve: There was moderate regurgitation. 5. Tricuspid valve: There was moderate regurgitation. 6. Pulmonary arteries: Pulmonary systolic pressure was increased, in the range of 50mm Hg to 55mm Hg. 7. Inferior vena cava: The vessel was patent and mildly dilated. The respirophasic diameter changes were in the normal range (greater than or equal to 50%), consistent with normal central venous pressure. 8. Pericardium, extracardiac: There was a right pleural effusion. There was a left pleural effusion. Labs Result diagrams: 07/13/20 05:21 07/13/20 05:21 Labs: Laboratory Results - last 24 hr 07/12/20 07/12/20 07/12/20 14:59 14:59 14:59 WBC RBC Hgb Hct MCV MCH MCHC RDW Plt Count MPV Immature Gran % Neutrophils % Lymphocytes % Monocytes % Eosinophils % Basophils % Nucleated RBC % Absolute Neutrophils Absolute Lymphocytes Absolute Monocytes Absolute Eosinophils Absolute Basophils D-Dimer 2294 H Sodium 138 Potassium 5.0 Chloride 100 Carbon Dioxide 39.0 H Anion Gap -1.0 L BUN 23 H Creatinine 1.4 H Estimated GFR/1.73 m2 49.54 Glucose 135 H Calcium 9.5 Magnesium 2.0 Total Bilirubin 0.5 AST 37 ALT 55 Alkaline Phosphatase 71 Troponin I 0.21 H* NT-Pro-B Natriuret Pep 2002 H Total Protein 6.9 Albumin 3.3 L Urine Color Urine Clarity Urine pH Ur Specific [employer] [employer] Urine Protein Urine Ketones Urine Blood Urine Nitrite Urine Bilirubin Urine Urobilinogen Ur Leukocyte Esterase Urine RBC Urine WBC Ur Epithelial Cells Urine Crystals Urine Bacteria Urine Casts Urine Mucus Urine Other Ur Culture Indicated? Urine Glucose COVID-19 Source 07/12/20 07/12/20 07/12/20 15:10 16:50 18:01 WBC 5.30 RBC 4.19 L Hgb 13.1 L Hct 42.0 MCV 100.2 H MCH 31.3 MCHC 31.2 L RDW 12.9 Plt Count 208 MPV 9.3 Immature Gran % 0.2 Neutrophils % 85.4 Lymphocytes % 6.0 Monocytes % 7.2 Eosinophils % 0.8 Basophils % 0.4 Nucleated RBC % 0 Absolute Neutrophils 4.53 Absolute Lymphocytes 0.32 L Absolute Monocytes 0.38 Absolute Eosinophils 0.04 Absolute Basophils 0.02 D-Dimer Sodium Potassium Chloride Carbon Dioxide Anion Gap BUN Creatinine Estimated GFR/1.73 m2 Glucose Calcium Magnesium Total Bilirubin AST ALT Alkaline Phosphatase Troponin I 0.21 H* NT-Pro-B Natriuret Pep Total Protein Albumin Urine Color Yellow Urine Clarity Clear Urine pH 6.5 Ur Specific [employer] 1.020 Urine Protein 100 H Urine Ketones Negative Urine Blood Negative Urine Nitrite Negative Urine Bilirubin Negative Urine Urobilinogen 0.2 Ur Leukocyte Esterase Negative Urine RBC Negative Urine WBC Negative Ur Epithelial Cells Rare Urine Crystals Negative Urine Bacteria Negative Urine Casts Negative Urine Mucus Trace Urine Other Negative Ur Culture Indicated? No Urine Glucose Negative COVID-19 Source 07/12/20 19:30 WBC RBC Hgb Hct MCV MCH MCHC RDW Plt Count MPV Immature Gran % Neutrophils % Lymphocytes % Monocytes % Eosinophils % Basophils % Nucleated RBC % Absolute Neutrophils Absolute Lymphocytes Absolute Monocytes Absolute Eosinophils Absolute Basophils D-Dimer Sodium Potassium Chloride Carbon Dioxide Anion Gap BUN Creatinine Estimated GFR/1.73 m2 Glucose Calcium Magnesium Total Bilirubin AST ALT Alkaline Phosphatase Troponin I NT-Pro-B Natriuret Pep Total Protein Albumin Urine Color Urine Clarity Urine pH Ur Specific [employer] Urine Protein Urine Ketones Urine Blood Urine Nitrite Urine Bilirubin Urine Urobilinogen Ur Leukocyte Esterase Urine RBC Urine WBC Ur Epithelial Cells Urine Crystals Urine Bacteria Urine Casts Urine Mucus Urine Other Ur Culture Indicated? Urine Glucose COVID-19 Source Nasal/nares Last Vital Signs Temp 36.7 C 07/12/20 14:46 Pulse 82 07/12/20 18:46 Resp 18 07/12/20 18:50 BP 128/71 07/12/20 18:46 Pulse Ox 98 07/12/20 18:50 COVID-19 Screening Have you, or household traveled for leisure in last 14 days?: No Had IN PERSON contact w/suspected or confirmed C-19 person: No
[2020-07-12 20:21] LABS: COVID-19 PCR Negative (Negative)
[2020-07-12 21:37] LABS: Prothrombin Time 10.1 sec (9.3-11.0)
[2020-07-13] VITALS (14 sets, daily range): BP systolic 104–151; BP diastolic 65–83; PULSE 54–87; RESP 2–19; TEMP 36.8–37; O2SAT 93–100
[2020-07-13 05:29] LABS: Abs Immature Grans 0.01 10^3/uL (0.0-0.06); Absolute Basophil Count 0.02 10^3/uL (0.0-0.2); Absolute Eosinophil Count 0.15 10^3/uL (0.0-0.7); Absolute Lymphocyte Count 0.56 10^3/uL (1.2-3.4); Absolute Monocyte Count 0.42 10^3/uL (0.1-0.8); Absolute Neutrophil Count 2.59 10^3/uL (1.2-6.7); Basophils % 0.5; HCT 44.5 % (40.0-50.0); HGB 13.9 g/dL (13.5-17.5); Immature Grans % 0.3; Lymphocytes % 14.9; MCH 31.5 pg (27.0-33.0); MCHC 31.2 % (32.0-36.0); MCV 100.9 fL (80-95); MPV 9.5 fL (8.0-11.0); Monocytes % 11.2; Neutrophils % 69.1; Nucleated RBC 0 %; Platelet Count 189 10^3/uL (130-400); RBC 4.41 10^6/uL (4.36-5.78); RDW 12.9 % (11.8-14.1); RDW-SD 48.7 fL; WBC 3.75 10^3/uL (4.4-10.8)
[2020-07-13 05:43] LABS: ALT 47 U/L (16-63); AST 31 U/L (15-37); Alkaline Phosphatase 65 U/L (46-116); Anion Gap 0.8 mmol/L (3-11); BUN 21 mg/dL (7-18); Bilirubin, Total 0.5 mg/dL (0.2-1.0); CO2 37.2 mmol/L (21.0-32.0); CREATININE 1.3 mg/dL (0.70-1.30); Calcium 9.1 mg/dL (8.5-10.1); Chloride 103 mmol/L (98-107); Estimated GFR 53.96 (mL/min/1.73m2); Glucose 89 mg/dL (74-106); Potassium 4.3 mmol/L (3.5-5.1); Sodium 141 mmol/L (136-145); Total Protein 6.5 g/dL (6.4-8.2)
--- NOTE | 2020-07-13 08:59 | NUR.NOTE ---
Nursing Note: At 0740 on 07/13/20, this RN entered the pt.'s room to perform a head to toe assessment and administer a medication to the pt. RN informed the pt. that they would be receiving metoprolol tartrate 25 mg PO. Pt. stated, No. I'm not taking that! RN asked the pt. why they were choosing to refuse the medication. Pt. stated, I take metoprolol succinate 50 mg once a day, and I take it later in the day. RN checked the pt.'s home medication list and verified that the pt. does indeed take metoprolol succinate 50 mg PO daily. RN informed the pt. that they would hold off on administering the medication, and would let the charge nurse know, so that the MD could change the order to reflect what they take at home. Pt. stated, No. Don't bother. I'm not going to take it. RN again asked the pt. why they were choosing to refuse the medication. Pt. stated, Well, I'm just going to take it when I get home. RN informed the pt. that they may not be discharged today, and therefore, may need to receive the medication later on today. RN asked the pt. to clarify what time they usually take the medication and the pt. stated, I usually take it some time between 6pm and 8pm. RN informed the pt. that they would let the charge nurse know, so that the MD could change the order to make sure it was administered at the time they usually take it at home. Pt. grunted understanding and then stated, Well, I can just take my own. I did last night. RN then asked the pt. if they meant that they had their own medication from home in the room with them. Pt. stated, Yes, I do, and I took my dose last night. RN informed the pt. that they would need to take the medication and send it to pharmacy to be verified and then locked up in a medication cassette until the pt. was discharged. Pt. stated, Absolutely not! You're not going to take it from me. RN educated the pt. regarding hospital protocol regarding home medications, medication administration safety, etc. Pt. stated, You're really pissing me off. It's fine. I swear I'm not going to take it. Aarti. RN stated, I'm sorry that you're feeling so frustrated. RN again educated the pt. regarding hospital protocol. Pt. again refused to allow the RN to take the medication to pharmacy and stated, Just forget I said anything. I don't have it, ok?! RN informed the pt. that they couldn't just ignore the fact that the pt. had said anything and informed the pt. that the RN would have to notify the charge nurse regarding the fact that they were refusing to give the RN the medication to bring to pharmacy. Pt. grunted and pursed his lips. RN then left the pt.'s room and informed the charge nurse. RN will reassess as necessary.
--- NOTE | 2020-07-13 10:40 | INITIAL_ITS ---
- If Service Date Differs Date of service: 07/13/20 Time of Service: 10:40 Care Management Initial Assess REASON FOR HOSPITALIZATION:: Hypoxemia, elevated triponin PAST MEDICAL HISTORY/PAST SURGICAL HISTORY:: Medical History. Acute myocardial infarction. 2012 STEMI. Anxiety. Asthma. BPH (benign prostatic hyperplasia). CAD S/P percutaneous coronary angioplasty. Cardiomyopathy. CHF (congestive heart failure). Chronic obstructive lung disease. Elevated LFTs. Elevated troponin. History of tobacco use. HTN (hypertension). Hx of atrial flutter. a/w STEMI in 2012; single episode. Hx of tongue cancer. 2004; s/p chemo and XRT. Hyperlipemia. Left knee pain. Occlusion of right vertebral artery. Oxygen dependent. 2L NC. Pleural effusion, left. Psoriasis. Pulmonary hypertension. Right carotid artery occlusion. Surgical History. Colonoscopy - MAC (04/03/16). Coronary Stent. 2012. EGD - MAC. History of total right hip arthroplasty. S/P TURP. tracheostomy PREVIOUS FUNCTIONAL STATUS/SOCIAL/FAMILY SUPPORTS:: Gustavo lives alone with his dog in a single family home in [place]. It is on 2 levels and he accesses both levels on a frequent basis. 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 Gustavo is independent with ADLs , driving etc. He has 2 children that are estranged. He has one close friend and a good neighbor next door for support. CURRENT FUNCTIONAL STATUS:: Gustavo was sitting up in a chair when CM met with him. He reported that he has been well taken care of during this admission. He expressed a lot of concerns regarding the state of the world, which JERED listened to attentively. He told CM about his multiple medical conditions, and how his wish is to not have extensive work ups in the future. He stated if the lights g o out, I don't want them to turn back on. JERED discussed Palliative care, which he is interested in. JERED will ask for a Palliative care consult. JERED asked if he has an advanced directive, which he was unsure about, but stated that he is working on a will to make sure his dog, Jessica, is taken care of when he passes. He stated that his sister, Irma, knows what his wishes are. JERED will continue to follow. ADVANCE DIRECTIVES:: None on file. Has patient been provided with info about the portal/API?: Yes Did the patient sign up for the portal?: No CODE STATUS:: Full Code INSURANCE COVERAGE / FINANCIAL ISSUES:: [employer] CURRENT HOME/COMMUNITY SERVICES/EQUIPMENT:: Gustavo has O2 through [facility]. PRIMARY CARE PHYSICIAN:: Zeina Lizama POTENTIAL DISCHARGE NEEDS:: Follow up appointments. PATIENT/FAMILY EDUCATION NEEDS:: Discharge plan, limitations, follow up plan and Ask Me Three ANTICIPATED BARRIERS TO DISCHARGE:: None identified. TRANSPORTATION:: Via private vehicle by family. PLAN:: Anticipate Gustavo will return home when medically cleared. He will be driven home via private vehicle by family. He will follow up with his PCP and discharge plan of care. CM will continue to follow.
--- NOTE | 2020-07-13 12:21 | PGE_ITS ---
Date of Service Date of service: 07/13/20 Time of Service: 12:22 Assessment and Plan Assessment and plan (1) Acute on chronic systolic (congestive) heart failure: Status: Acute Assessment and plan: patient presented w/ progressive dyspnea and acute hypoxemia noticed on his home pulse oximeter yesterday. While we have documented stable oxygen levels on his current home setting of 2 LPM and he tolerated an ambulatory pulse oximetry test this afternoon () he clearly has worsening CHF d/t isch. CM. His last stress echo from 02/17/2020 did not show any new wall motion worsening during the stress phase, his LVEF is only 35% at best. He has been noncompliant w/ his medication regimen (stopping his diuretics and ACEI). He is willing to stay today for thoracentesis to drain a moderately large right pleural effusion but is not interested in starting on any new medications. I recommend that he follow up w/ his vice president of advertising and PCP at [facility] to discuss further medication management. (2) Elevated troponin level not due to acute coronary syndrome: Status: Chronic Assessment and plan: chronic stable. no chest pain. negative stress echo 02/17/2020. (3) Bilateral pleural effusion: Status: Acute Assessment and plan: I consulted Dr. Singh who is in surgery this afternoon but indicated that she will see the patient and review his CT findings later this afternoon. I explained to the patient that there are other causes for pleural effusions including cancer but most likely this is d/t CHF given he has bilateral effusions, high BNP and low EF. Subjective Subjective Interval history since last seen: 75-year-old white male former smoker with history of COPD on chronic home oxygen at 2 L/min per nasal cannula who also has an ischemic cardiomyopathy with a last known ejection fraction of 35% per his stress echo from February 17, 2020 in which she had no new ischemic changes and no worsening of his moderately severe mitral vegetation. 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 Ze Mckeon. Patient presented to the emergency department last night with complaints of dyspnea along with tachycardia with heart rate in the low 100s and according to his pulse oximetry hypoxemia with a pulse oximetry saturation of 75%. Patient was seen in the emergency department by NANDO Gibbs as well as Evelyn Blanco CNP and was subsequently admitted last night on observation status by Dr. Barrera Cisse after a workup in the ER that included EKG, CXR, CTA chest, routine labs. On arrival his SPO2 was 100% on 2 Lpm. CXR demonstrated cardiomegaly, bilateral pleural effusions. Due to high d-dimer 2294 CTA chest was done and demonstrated: IMPRESSION: 1. No evidence of acute pulmonary emboli. No evidence of pulmonary infarction.Bilateral non loculated pleural effusions, larger on the right side and associated with volume loss in the right lower lobe basal segments and and left lower lobe segments. There is some mild infiltrate in the left lower lobe. 2. Cardiomegaly. Dilatation of the ascending thoracic aorta diameter 4 cm. No dissection evident. No pericardial effusion. Coronary artery calcification evident. 3. Significant atherosclerotic disease evident at the origin of the celiac and superior mesenteric arteries. Thoracolumbar scoliosis. No osseous lesions evident. The patient denies any fever, chills, cough or sputum production and his WBC were only 5300. However his BNP was 2002 and troponin 0.21 w/ repeat levels obtained through the night remaining at 0.20. He states that they are chronically mildly elevated. His EKG demonstrated LVH w/ repolarization abnormalities including deeply negative ST-T abnormalities in I, avL, V5, V6 as well as LAE. CBC showed no anemia. CMP demonstrates elevated carbon dioxide 37 but otherwise normal renal and liver function and normal electrolytes. Initially the plan was to walke the patient around the ED and if no CP nor dyspnea nor oxygen desaturation while on his baseline home oxygen flow of 2 LPM then he would be discharged home to follow up w/ his PCP and vice president of advertising. However when Evelyn Blanco reviewed the case w/ Dr. Carlos Chowdhury, it was decided to admit on observation for serial troponin levels (all of which have remained unchanged at 0.20). Patient remains free of any chest pain. With respect to his CHF, he did not feel that he was in acute CHF as he says that his weight has remained unchanged (states his dry weight is 166 ) and he has had no peripheral edema. However when I reviewed his CT findings and high B [employer] he seemed surprised that his chest CT was demonstrating large pleural effusion. He states that he has had 3 prior thoracentesis procedures w/ relief. He indicated an interest in pursuing another thoracentesis if this will help w/ his dyspnea. I explained to him that this will provide some short term relief but that if he does not regularly follow up w/ his vice president of advertising and follow his recommendations of meds for CHF, then it will be for naught. He last visited on telehealth visist w/ Dr. Ze Mckeon on 02/10/[address] at [address] time Dr[address] Mckeon noted that the patient had taken himself off his lasix and spironolactone and that the patient refuses to take any statins nor any LANRE-I nor any ARB d/t distrust of pharmaceutical companies. I addressed this w/ the patient as to how the patient would like to manage his chronic cardiomyopathy, he indicated that he feels he can manage w/ exercise, diet and natural supplements. I tried to explain that while this may all be helpful to a healthy lifestyle, this is more a preventative approach and with him already having significant myocardial damage, his body needs help from targeted specific anti- CHF meds, i.e. diuretics, BB (which he faithfully takes his Toprol XL 50 mg daily), ARB or ACEI. I told him that I would consult w/ Dr. Singh, general surgeon to see about performing a thoracentesis to assist w/ fluid removal from his right hemithorax. Exam Narrative Exam Narrative: Thin elderly white male who appears younger than his stated age. Sitting up in his chair reading a book. Alert and oriented x 3 Lungs w/ diminished breath sounds at the bases w/ RLL decr. more than the L. Right base w/ dullness to percussion Heart : RRR w/ soft systolic murmur over apex, no thrill or heave or gallop Abdomen: nondistended, no edema Legs: no cyanosis nor any pitting edema Objective Last Vital Signs Temp 36.8 C 07/13/20 07:16 Pulse 73 07/13/20 07:41 Resp 19 07/13/20 07:16 BP 134/78 07/13/20 07:16 Pulse Ox 97 07/13/20 07:16 Laboratory Results - last 24 hr 07/12/20 07/12/20 07/12/20 14:59 14:59 14:59 WBC RBC Hgb Hct MCV MCH MCHC RDW Plt Count MPV Immature Gran % Neutrophils % Lymphocytes % Monocytes % Eosinophils % Basophils % Nucleated RBC % Absolute Neutrophils Absolute Lymphocytes Absolute Monocytes Absolute Eosinophils Absolute Basophils PT INR D-Dimer 2294 H Sodium 138 Potassium 5.0 Chloride 100 Carbon Dioxide 39.0 H Anion Gap -1.0 L BUN 23 H Creatinine 1.4 H Estimated GFR/1.73 m2 49.54 Glucose 135 H Calcium 9.5 Magnesium 2.0 Total Bilirubin 0.5 AST 37 ALT 55 Alkaline Phosphatase 71 Troponin I 0.21 H* NT-Pro-B Natriuret Pep 2002 H Total Protein 6.9 Albumin 3.3 L TSH Urine Color Urine Clarity Urine pH Ur Specific [place] Urine Protein Urine Ketones Urine Blood Urine Nitrite Urine Bilirubin Urine Urobilinogen Ur Leukocyte Esterase Urine RBC Urine WBC Ur Epithelial Cells Urine Crystals Urine Bacteria Urine Casts Urine Mucus Urine Other Ur Culture Indicated? Urine Glucose COVID-19 Source SARS-CoV-2 (PCR) 07/12/20 07/12/20 07/12/20 15:10 16:50 18:01 WBC 5.30 RBC 4.19 L Hgb 13.1 L Hct 42.0 MCV 100.2 H MCH 31.3 MCHC 31.2 L RDW 12.9 Plt Count 208 MPV 9.3 Immature Gran % 0.2 Neutrophils % 85.4 Lymphocytes % 6.0 Monocytes % 7.2 Eosinophils % 0.8 Basophils % 0.4 Nucleated RBC % 0 Absolute Neutrophils 4.53 Absolute Lymphocytes 0.32 L Absolute Monocytes 0.38 Absolute Eosinophils 0.04 Absolute Basophils 0.02 PT INR D-Dimer Sodium Potassium Chloride Carbon Dioxide Anion Gap BUN Creatinine Estimated GFR/1.73 m2 Glucose Calcium Magnesium Total Bilirubin AST ALT Alkaline Phosphatase Troponin I 0.21 H* NT-Pro-B Natriuret Pep Total Protein Albumin TSH Urine Color Yellow Urine Clarity Clear Urine pH 6.5 Ur Specific [place] 1.020 Urine Protein 100 H Urine Ketones Negative Urine Blood Negative Urine Nitrite Negative Urine Bilirubin Negative Urine Urobilinogen 0.2 Ur Leukocyte Esterase Negative Urine RBC Negative Urine WBC Negative Ur Epithelial Cells Rare Urine Crystals Negative Urine Bacteria Negative Urine Casts Negative Urine Mucus Trace Urine Other Negative Ur Culture Indicated? No Urine Glucose Negative COVID-19 Source SARS-CoV-2 (PCR) 07/12/20 07/12/20 07/12/20 19:30 21:15 21:15 WBC RBC Hgb Hct MCV MCH MCHC RDW Plt Count MPV Immature Gran % Neutrophils % Lymphocytes % Monocytes % Eosinophils % Basophils % Nucleated RBC % Absolute Neutrophils Absolute Lymphocytes Absolute Monocytes Absolute Eosinophils Absolute Basophils PT 10.1 INR 1.0 D-Dimer Sodium Potassium Chloride Carbon Dioxide Anion Gap BUN Creatinine Estimated GFR/1.73 m2 Glucose Calcium Magnesium Total Bilirubin AST ALT Alkaline Phosphatase Troponin I NT-Pro-B Natriuret Pep Total Protein Albumin TSH 2.70 Urine Color Urine Clarity Urine pH Ur Specific [place] Urine Protein Urine Ketones Urine Blood Urine Nitrite Urine Bilirubin Urine Urobilinogen Ur Leukocyte Esterase Urine RBC Urine WBC Ur Epithelial Cells Urine Crystals Urine Bacteria Urine Casts Urine Mucus Urine Other Ur Culture Indicated? Urine Glucose COVID-19 Source Nasal/nares SARS-CoV-2 (PCR) Negative 07/12/20 07/13/20 07/13/20 21:15 05:21 05:21 WBC RBC Hgb Hct MCV MCH MCHC RDW Plt Count MPV Immature Gran % Neutrophils % Lymphocytes % Monocytes % Eosinophils % Basophils % Nucleated RBC % Absolute Neutrophils Absolute Lymphocytes Absolute Monocytes Absolute Eosinophils Absolute Basophils PT INR D-Dimer Sodium 141 Potassium 4.3 Chloride 103 Carbon Dioxide 37.2 H Anion Gap 0.8 L BUN 21 H Creatinine 1.3 Estimated GFR/1.73 m2 53.96 Glucose 89 Calcium 9.1 Magnesium Total Bilirubin 0.5 AST 31 ALT 47 Alkaline Phosphatase 65 Troponin I 0.20 H* 0.20 H* NT-Pro-B Natriuret Pep Total Protein 6.5 Albumin 3.0 L TSH Urine Color Urine Clarity Urine pH Ur Specific [place] Urine Protein Urine Ketones Urine Blood Urine Nitrite Urine Bilirubin Urine Urobilinogen Ur Leukocyte Esterase Urine RBC Urine WBC Ur Epithelial Cells Urine Crystals Urine Bacteria Urine Casts Urine Mucus Urine Other Ur Culture Indicated? Urine Glucose COVID-19 Source SARS-CoV-2 (PCR) 07/13/20 05:21 WBC 3.75 L RBC 4.41 Hgb 13.9 Hct 44.5 MCV 100.9 H MCH 31.5 MCHC 31.2 L RDW 12.9 Plt Count 189 MPV 9.5 Immature Gran % 0.3 Neutrophils % 69.1 Lymphocytes % 14.9 Monocytes % 11.2 Eosinophils % 4.0 Basophils % 0.5 Nucleated RBC % 0 Absolute Neutrophils 2.59 Absolute Lymphocytes 0.56 L Absolute Monocytes 0.42 Absolute Eosinophils 0.15 Absolute Basophils 0.02 PT INR D-Dimer Sodium Potassium Chloride Carbon Dioxide Anion Gap BUN Creatinine Estimated GFR/1.73 m2 Glucose Calcium Magnesium Total Bilirubin AST ALT Alkaline Phosphatase Troponin I NT-Pro-B Natriuret Pep Total Protein Albumin TSH Urine Color Urine Clarity Urine pH Ur Specific [place] Urine Protein Urine Ketones Urine Blood Urine Nitrite Urine Bilirubin Urine Urobilinogen Ur Leukocyte Esterase Urine RBC Urine WBC Ur Epithelial Cells Urine Crystals Urine Bacteria Urine Casts Urine Mucus Urine Other Ur Culture Indicated? Urine Glucose COVID-19 Source SARS-CoV-2 (PCR)
--- NOTE | 2020-07-13 13:41 | DI.RAD_ITS ---
EXAM: XR CHEST COMPLETE MULTI VIEW CLINICAL HISTORY: bilateral pleural effusions. TECHNIQUE: 2D digital imaging was performed. COMPARISON: CR XR LUMBAR SPINE AP, LAT from 06/06/2020 CR XR LUMBAR SPINE AP, LAT from 06/06/2020 CR,XR XR CHEST 2V PA LATERAL from 07/12/2020 FINDINGS: Heart size is unchanged. Mediastinum not widened. Thoracolumbar scoliosis is again noted. There is no radiographic improvement in the left lower lobe infiltrate and size of left pleural effus ion is unchanged. Small size of the right pleural effusion is also unchanged. IMPRESSION: Persistent unchanged left lower lobe infiltrate and left pleural effusion. Also unchanged right pleu ral effusion. DATA REPOSITORY: RADIATION DOSE DELIVERED:
--- NOTE | 2020-07-13 14:58 | NUR.NOTE ---
Nursing Note: At 1430 on 07/13/20, this RN entered the pt.'s room because the pt. had rung his call olson. Pt. stated that he felt he could benefit from an albuterol updraft instead of his albuterol inhaler. Pt. also stated that he uses albuterol updrafts at home. Pt. stated, I have some of my cartridges with me, but I didn't bring my nebulizer with me. But you probably have your own cartridges and nebulizers that you want to use, right? RN informed the pt. that the hospital does have their own cartridges and nebulizers and asked that the pt. not use his own. RN informed the pt. that they would step out, check to see if the pt. had an order for nebulizers, and if not, would ask the MD for an order and would have respiratory therapy bring one in once available. Pt. verbalized understanding and presented with no further questions. Based on the RN's earlier conversation with the pt., RN didn't ask the pt. about taking the pt.'s medication to pharmacy. Charge nurse notified of the fact that the pt. has his own albuterol cartridges in the room. RN will reassess as necessary.
--- NOTE | 2020-07-13 15:11 | NUR.NOTE ---
Nursing Note: At 1510 on 07/13/20, this RN spoke with NANDO Gustafson regarding the plan of care for the pt., specifically having the MD perform a thoracentesis later on this afternoon. Upon conversing with the PA, the PA mentioned that the pt. had made a comment to her about not wanting to live anymore. PA also mentioned that the pt. made sure to quickly follow up that statement by stating, I'm not suicidal. I just don't want to do this anymore. At 1512 on 07/13/20, the RT came over to speak with the RN regarding the RN's paged request to bring an albuterol updraft to the pt., and upon hearing the PA's comment, also mentioned that the pt. had made a comment to her earlier in the day about not wanting to live anymore. Roughly mid morning on 07/13/20, this RN entered the pt.'s room to assist pt. with fixing his telemetry unit and gown, and as the nurse was helping the pt. with this, the pt. had stated, I wish I could just fall asleep and not wake up again. I just don't want to keep doing this. When RN asked what he meant by not wanting to keep doing this, the pt. became frustrated and gestured to everything that was attached to him (telemetry unit and nasal cannula) and stated, I just don't to keep doing this. I just don't want to live anymore. But I'm fine. Charge nurse, MD, and care management to be notified. RN will reassess as necessary.
--- NOTE | 2020-07-13 15:16 | W.SURGCON ---
Date of service: 07/13/20 Time of Service: 15:17 Assessment and Plan Assessment and plan (1) Bilateral pleural effusion: Status: Acute Assessment and plan: A// Bilateral pleural effusions noted on CT can, Right larger than Left. Patient is symptomatic, expressing feeling SOB. Patient expresses that he wishes to proceed with having a thoracentesis to drain off the fluid. Discussed the procedure of having a thoracentesis. Explained the risks and benefits of the procedure to include bleeding, infection, pneumothorax, recurrence and unforetold complications. Questions were answered to patient satisfaction. P// Thoracentesis with Dr. Singh. History of Present Illness History of Present Illness Chief Complaint: Bilateral Pleural Effusion Narrative: 75 y/o male with a history of acute on chronic congestive heart failure and HTN presented to the ER with complaints of SOB and decreased Sp02 and tachycardia while monitoring at home. He reports that he has had a thoracentesis in the past. He denies any bleeding or clotting disorders. He denies having any chest pain. Review of Systems Constitutional Constitutional: Reports as per [facility] Medical History Acute myocardial infarction 2012 STEMI Anxiety Asthma BPH (benign prostatic hyperplasia) CAD S/P percutaneous coronary angioplasty Cardiomyopathy CHF (congestive heart failure) Chronic obstructive lung disease Elevated LFTs Elevated troponin History of tobacco use HTN (hypertension) Hx of atrial flutter a/w STEMI in 2012; single episode Hx of tongue cancer 2004; s/p chemo and XRT Hyperlipemia Left knee pain Occlusion of right vertebral artery Oxygen dependent 2L [place] Pleural effusion, left Psoriasis Pulmonary hypertension Right carotid artery occlusion Surgical History Colonoscopy - [facility] (04/03/16) Coronary Stent 2012 EGD - [facility] History of total right hip arthroplasty S/P TURP tracheostomy Family History Mother Chronic congestive heart failure Father Personal history of malignant neoplasm Lung Cancer Social History Smoking/Tobacco Use Status: Former Tobacco Use Smoking risk assessment performed?: Yes Alcohol Intake: former Drug use: Never Substance use type: does not use, former substance user Date of last use: 30 years and crack/cocaine 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 Exam Const General: cooperative, healthy appearing and comfortable Orientation: alert and oriented x3 Resp Effort & Inspection: normal respiratory effort, able to speak in complete sentences and not labored Other: Respiratory Therapy was in the room, getting ready to administer an updraft Results Last Vital Signs Temp 37.0 C 07/13/20 14:20 Pulse 54 L 07/13/20 14:20 Resp 17 07/13/20 14:20 BP 144/83 H 07/13/20 14:20 Pulse Ox 100 07/13/20 14:20 Labs Result diagrams: 07/13/20 05:21 07/13/20 05:21 Labs: Laboratory Results - last 24 hr 07/12/20 07/12/20 07/12/20 14:59 14:59 14:59 WBC RBC Hgb Hct MCV MCH MCHC RDW Plt Count MPV Immature Gran % Neutrophils % Lymphocytes % Monocytes % Eosinophils % Basophils % Nucleated RBC % Absolute Neutrophils Absolute Lymphocytes Absolute Monocytes Absolute Eosinophils Absolute Basophils PT INR D-Dimer 2294 H Sodium 138 Potassium 5.0 Chloride 100 Carbon Dioxide 39.0 H Anion Gap -1.0 L BUN 23 H Creatinine 1.4 H Estimated GFR/1.73 m2 49.54 Glucose 135 H Calcium 9.5 Magnesium 2.0 Total Bilirubin 0.5 AST 37 ALT 55 Alkaline Phosphatase 71 Troponin I 0.21 H* NT-Pro-B Natriuret Pep 2002 H Total Protein 6.9 Albumin 3.3 L TSH Urine Color Urine Clarity Urine pH Ur Specific [place] Urine Protein Urine Ketones Urine Blood Urine Nitrite Urine Bilirubin Urine Urobilinogen Ur Leukocyte Esterase Urine RBC Urine WBC Ur Epithelial Cells Urine Crystals Urine Bacteria Urine Casts Urine Mucus Urine Other Ur Culture Indicated? Urine Glucose COVID-19 Source SARS-CoV-2 (PCR) 07/12/20 07/12/20 07/12/20 15:10 16:50 18:01 WBC 5.30 RBC 4.19 L Hgb 13.1 L Hct 42.0 MCV 100.2 H MCH 31.3 MCHC 31.2 L RDW 12.9 Plt Count 208 MPV 9.3 Immature Gran % 0.2 Neutrophils % 85.4 Lymphocytes % 6.0 Monocytes % 7.2 Eosinophils % 0.8 Basophils % 0.4 Nucleated RBC % 0 Absolute Neutrophils 4.53 Absolute Lymphocytes 0.32 L Absolute Monocytes 0.38 Absolute Eosinophils 0.04 Absolute Basophils 0.02 PT INR D-Dimer Sodium Potassium Chloride Carbon Dioxide Anion Gap BUN Creatinine Estimated GFR/1.73 m2 Glucose Calcium Magnesium Total Bilirubin AST ALT Alkaline Phosphatase Troponin I 0.21 H* NT-Pro-B Natriuret Pep Total Protein Albumin TSH Urine Color Yellow Urine Clarity Clear Urine pH 6.5 Ur Specific [place] 1.020 Urine Protein 100 H Urine Ketones Negative Urine Blood Negative Urine Nitrite Negative Urine Bilirubin Negative Urine Urobilinogen 0.2 Ur Leukocyte Esterase Negative Urine RBC Negative Urine WBC Negative Ur Epithelial Cells Rare Urine Crystals Negative Urine Bacteria Negative Urine Casts Negative Urine Mucus Trace Urine Other Negative Ur Culture Indicated? No Urine Glucose Negative COVID-19 Source SARS-CoV-2 (PCR) 07/12/20 07/12/20 07/12/20 19:30 21:15 21:15 WBC RBC Hgb Hct MCV MCH MCHC RDW Plt Count MPV Immature Gran % Neutrophils % Lymphocytes % Monocytes % Eosinophils % Basophils % Nucleated RBC % Absolute Neutrophils Absolute Lymphocytes Absolute Monocytes Absolute Eosinophils Absolute Basophils PT 10.1 INR 1.0 D-Dimer Sodium Potassium Chloride Carbon Dioxide Anion Gap BUN Creatinine Estimated GFR/1.73 m2 Glucose Calcium Magnesium Total Bilirubin AST ALT Alkaline Phosphatase Troponin I NT-Pro-B Natriuret Pep Total Protein Albumin TSH 2.70 Urine Color Urine Clarity Urine pH Ur Specific [place] Urine Protein Urine Ketones Urine Blood Urine Nitrite Urine Bilirubin Urine Urobilinogen Ur Leukocyte Esterase Urine RBC Urine WBC Ur Epithelial Cells Urine Crystals Urine Bacteria Urine Casts Urine Mucus Urine Other Ur Culture Indicated? Urine Glucose COVID-19 Source Nasal/nares SARS-CoV-2 (PCR) Negative 07/12/20 07/13/20 07/13/20 21:15 05:21 05:21 WBC RBC Hgb Hct MCV MCH MCHC RDW Plt Count MPV Immature Gran % Neutrophils % Lymphocytes % Monocytes % Eosinophils % Basophils % Nucleated RBC % Absolute Neutrophils Absolute Lymphocytes Absolute Monocytes Absolute Eosinophils Absolute Basophils PT INR D-Dimer Sodium 141 Potassium 4.3 Chloride 103 Carbon Dioxide 37.2 H Anion Gap 0.8 L BUN 21 H Creatinine 1.3 Estimated GFR/1.73 m2 53.96 Glucose 89 Calcium 9.1 Magnesium Total Bilirubin 0.5 AST 31 ALT 47 Alkaline Phosphatase 65 Troponin I 0.20 H* 0.20 H* NT-Pro-B Natriuret Pep Total Protein 6.5 Albumin 3.0 L TSH Urine Color Urine Clarity Urine pH Ur Specific [place] Urine Protein Urine Ketones Urine Blood Urine Nitrite Urine Bilirubin Urine Urobilinogen Ur Leukocyte Esterase Urine RBC Urine WBC Ur Epithelial Cells Urine Crystals Urine Bacteria Urine Casts Urine Mucus Urine Other Ur Culture Indicated? Urine Glucose COVID-19 Source SARS-CoV-2 (PCR) 07/13/20 05:21 WBC 3.75 L RBC 4.41 Hgb 13.9 Hct 44.5 MCV 100.9 H MCH 31.5 MCHC 31.2 L RDW 12.9 Plt Count 189 MPV 9.5 Immature Gran % 0.3 Neutrophils % 69.1 Lymphocytes % 14.9 Monocytes % 11.2 Eosinophils % 4.0 Basophils % 0.5 Nucleated RBC % 0 Absolute Neutrophils 2.59 Absolute Lymphocytes 0.56 L Absolute Monocytes 0.42 Absolute Eosinophils 0.15 Absolute Basophils 0.02 PT INR D-Dimer Sodium Potassium Chloride Carbon Dioxide Anion Gap BUN Creatinine Estimated GFR/1.73 m2 Glucose Calcium Magnesium Total Bilirubin AST ALT Alkaline Phosphatase Troponin I NT-Pro-B Natriuret Pep Total Protein Albumin TSH Urine Color Urine Clarity Urine pH Ur Specific [place] Urine Protein Urine Ketones Urine Blood Urine Nitrite Urine Bilirubin Urine Urobilinogen Ur Leukocyte Esterase Urine RBC Urine WBC Ur Epithelial Cells Urine Crystals Urine Bacteria Urine Casts Urine Mucus Urine Other Ur Culture Indicated? Urine Glucose COVID-19 Source SARS-CoV-2 (PCR)
[2020-07-13] MEDS: Albuterol 2.5 MG/3 ML INH SOLN VIAL UPD (15:17)
--- NOTE | 2020-07-13 15:35 | NUR.NOTE ---
Nursing Note: At 1530 on 07/13/20, this RN informed the charge nurse of the multiple statements made by the pt. regarding not wanting to live anymore and asked if a palliative care consult and/or a mental health consult may be beneficial. At 1535 on 07/13/20, this RN informed the progressive care unit registered nurse of the multiple statements made by the pt. regarding not wanting to live anymore. digital community manager stated that they would go and speak with the pt., but agreed that a palliative care consult would be beneficial. MD to be notified. RN will reassess as necessary.
--- NOTE | 2020-07-13 16:39 | PHA.REVIEW ---
Pharmacy Admission Review - Admission Clinical Review (Last Reviewed 06/20/20 @ 12:25 by Latha Agarwal MD) Acute on chronic systolic (congestive) heart failure (Acute) Bilateral pleural effusion (Acute) Hypoxemia (Acute) Mild shortness of breath (Acute) Elevated troponin (Acute) carvedilol Allergy (Unverified 07/12/20 15:08) Height 5 ft 11 in Weight 76.8 kg - Renal Dosing Renal Dosing: BUN 21 mg/dL (7-18) H 07/13/20 05:21 Creatinine 1.3 mg/dL (0.70-1.30) 07/13/20 05:21 Medications needing adjustments: Reviewed (Crcl ~53 mL/min current meds okay.) - Anticoagulation Anticoagulation: Hgb 13.9 g/dL (13.5-17.5) 07/13/20 05:21 Hct 44.5 % (40.0-50.0) 07/13/20 05:21 Plt Count 189 10^3/uL (130-400) 07/13/20 05:21 INR 1.0 (0.9-1.1) 07/12/20 21:15 Creatinine 1.3 mg/dL (0.70-1.30) 07/13/20 05:21 DVT Prohphylaxis: Reviewed Medications: Heparin Therapeutic Anticoagulation: N/A - Opiate Usage Evaluate Pain Scale/Pains Meds: N/A - Relevant Labs Sodium 141 mmol/L (136-145) 07/13/20 05:21 Potassium 4.3 mmol/L (3.5-5.1) 07/13/20 05:21 Chloride 103 mmol/L (98-107) 07/13/20 05:21 Magnesium 2.0 mg/dL (1.8-2.4) 07/12/20 14:59 Electrolytes, C-Reactive P, ESR: Reviewed - DM Control DM Control: Glucose 89 mg/dL (74-106) 07/13/20 05:21 Insulin Dosing: N/A - Heart Failure/NE Heart Failure/NE: Troponin I 0.20 ng/mL (<0.06) H* 07/13/20 05:21 NT-Pro-B Natriuret Pep 2002 pg/mL (<300) H 07/12/20 14:59 EF%, LANRE's, B-Blockers, Diuretics: Reviewed - BP Control BP Control: Blood Pressure 126/73 Blood Pressure 144/83 Blood Pressure 134/78 Blood Pressure 125/76 If elevated: Reviewed (BP has been normal to high so far this admission.) - Qtc Review If Elevated: Reviewed (QTc values were 416 and 425 on admission) - IV to PO Switch IV Medications: Reviewed - Home Meds Home Med List reviewed: Reviewed (Some meds on external med history that were picked up recently but not on the pt's home med list here, such as lorazepam and nitroglycerin (both PRN). Multiple forms of vitamin D increases the risk of toxicity.) Relevent Home Meds Not ordered & why?: vitamin B complex, calcium/mag, cannabidiol, cholecalciferol, coenzyme Q-10, fish oil, guaifenesin, multivitamin, oregano oil, vitamin E - Current meds Current Medication Order Review: Intervened (Discontinued DI meds, had already been given.) - Comments Comments/Follow Ups: Watch BP, labs and for med changes (possible renal dose adjustments).
--- NOTE | 2020-07-13 20:39 | ROE_ITS ---
Date of service: 07/13/20 Time of Service: 20:40 Operative Note Operative Note DATE OF PROCEDURE: 07/13/20 PRE-OP DIAGNOSIS: Bilateral pleural effusions L>R POST-OP DIAGNOSIS: same PROCEDURE: Left sided thoracenthesis SURGEON: Lucy Singh ANESTHESIA TYPE: Local By Surgeon Refer to Anesthesia Record ESTIMATED BLOOD LOSS: 5 PATHOLOGY: other (fluid for cytology) COMPLICATIONS: None Patient was transported to: no change Patient's condition: stable Indications: Mr. Noland is a pleasant 75 year old male with bilateral pleural effusions. The left effusion is larger than the right. The patient has chronic systolic heart failure and was supposed to be on Lasix. He tells me that he stopped his Lasix because he was feeling well and had not had any pleural effusions. Risks benefits and complications of doing a left-sided thoracentesis were reviewed with him. Risks include bleeding, pain, pneumothorax and infection. The patient understands and wishes to proceed. Procedure Description: After informed consent was obtained the patient was asked to sit at the edge of the bed. The patient was given a table with a pillow to lean against. The back was exposed. The back on the left was US to find the pocket of fluid. Once the fluid was identified a conrad was made on the skin. A time out was done. The patients name, , procedure to be done and side, allergies and antibiotic given were reviewed. Fire risk was assessed. Next the back was prepped and draped in a standard fashion with chlorhexidine. The thoracenthesis kit was opened in a sterile fashion. 1% Lidocaine was injected into the dermis, subcutaneous tissue and down between the ribs. A small incision was then made with an 11 blade. The needle and sheath were then slowly introduced until I was able to suction some fluid. At this point the sheath was advanced and the needle was pulled back. The sheath was then attached to tubing and to a suction bottle. 300 cc of fluid was removed. The sheath was removed and a band aid was applied. The patient tolerated the procedure well and there were no immediate comp lications. A chest XRay was ordered and showed a small pneumothorax. The patient was informed of this. He is asymptomatic. A follow up CXR will be done in the morning. If he has increased SOB during the night a will come back and place a small chest tube.
--- NOTE | 2020-07-13 20:45 | PAPNONF_PTH ---
PATIENT: Gustavo Noland Jr LOC: [id number]#:[id number] AGE/SX: 75/M ROOM: IN.207 RE07/14/[address]: Barrera Cisse : 1945 BED: A DIS: 07/15/2020 SPEC #: [id number] RECD: 07/14/20 12:59 STATUS: KRISTINA REQ #: [id number] MARC: 07/13/20 20:[address]: Barrera Cisse DEPT: [facility] Cytology RECD BY: Celina Rueda ENTERED: 07/14/20 12:59 SP TYPE: NIRMAL ANAND DR: MD Daniel Hinds Diana Tissues: 1 - BODY FLUID CYTO(NOT S/U/N/EM)[facility] Procedures: BODY FLUID CYTO(NOT SPU/UR/NIP/ENDOM)[facility] Comments: [id number] (TOTAL VOLUME = 300 ml's - SENT FRESH)
--- NOTE | 2020-07-13 20:55 | DI.RAD_ITS ---
EXAM: XR PORTABLE CHEST AP CLINICAL HISTORY: thoracentesis. TECHNIQUE: 2D digital imaging was performed. COMPARISON: 07/13/2020/earlier same date chest x-ray FINDINGS: Heart size is unchanged. Scoliosis again noted. Size of left pleural effusion has decreased. Corresponding small unilateral left pneumothorax is not ed on this post thoracentesis image. Size of the right pleural effusion is unchanged. There is no p neumothorax on the right side. Left lower lobe infiltrate is again noted. IMPRESSION: DATA REPOSITORY: RADIATION DOSE DELIVERED: All CT scans at this facility use at least one of these dose optimization techniques: automated exposure control; mA and/or kV adjustment per patient size (includes targeted e xams where dose is matched to clinical indication); or iterative reconstruction.
--- NOTE | 2020-07-13 21:33 | DI.VRAD_ITS ---
Addendum created by Luis Antonio Bolden MD on 07/13/2020 10:26:05 PM EDT: THIS REPORT CONTAINS FINDINGS THAT MAY BE CRITICAL TO PATIENT CARE. The findings were verbally communicated via telephone conference with Dr. Cutler at 10:25 PM EDT on 07/13/2020. The findings were acknowledged and understood. Initial report created on 07/13/2020 9:32:27 PM EDT: PROCEDURE INFORMATION: Exam: XR Chest Exam date and time: 07/13/2020 8:35 PM Age: 75 years old Clinical indication: Condition or disease; Other: Thoracentesis TECHNIQUE: Imaging protocol: XR of the chest. Views: 1 view. Total images: 1 COMPARISON: CR XR CHEST COMPLETE MULTI VIEW 07/13/2020 1:23 PM FINDINGS: Lungs: No focal consolidation. Haziness in the right mid to lower may represent layering pleural fluid. Pulmonary lilia: Unremarkable contours. Pleural spaces: There has been interval left-sided thoracentesis without residual left pleural fluid. There is a stable partially layering right pleural effusion. There is hyperlucency (deep sulcus sign) at the left lung base consistent with a pneumothorax. Heart/Mediastinum: The mediastinal contours are unchanged. Bones/joints: There is a severe thoracic dextroscoliosis. Intraperitoneal space: Visualized upper abdomen is unremarkable. IMPRESSION: Left-sided pneumothorax status post thoracentesis. Dictated and Authenticated by: Luis Antonio Bolden MD. Ordering:SEAN Ayala MD
[2020-07-13 22:06] LABS: Clarity Cloudy; Source Thoracic
[2020-07-13 22:07] LABS: Nucleated Cells 223 uL (0)
[2020-07-13 22:30] LABS: Mononuclear Cells 91 %; Polynuclear Cells 9 %
--- NOTE | 2020-07-13 22:45 | RT.EKG_ITS ---
APPROVED REPORT Exam: Resting ECG Patient Location: I HR:73 bpm ECG Measurements Heart Rate 73 AXIS [place] [id number] P [id number] QRSd 108 QRS 58 QT 490 T 189 QTc 542 Conclusion Atrial flutter with predominant 4:1 AV block...A-rate 306, multiple Ps LVH with secondary repolarization abnormality...multi-LVH criteria, abnrm ST-T Prolonged QT interval...QTc >500mS
[2020-07-14] VITALS (10 sets, daily range): BP systolic 110–147; BP diastolic 67–79; PULSE 61–80; RESP 1–18; TEMP 36.4–36.9; O2SAT 95–100
--- NOTE | 2020-07-14 | DI.US_ITS ---
APPROVED REPORT EXAM: Comprehensive 2D, Doppler, and color-flow Echocardiogram Patient Location: In-Patient Room/Bed: [facility] [place] [facility] Psychiatry: Taylor Gutierrez RDCS (AE) Indications: CHF,Evaluate LV Function Other Information Study Quality: Adequate. Technically limited study due to inability to position patient. Conclusion Left Ventricle : The left ventricle is normal size. Left ventricular systolic function is moderately decreased. There is normal left ventricular wall thickness. Regional wall motion abnormalities are no carlos. The left ventricular diastolic function is abnormal. LVEF is 30%. Right Ventricle : The right ventricle is normal size. Right ventricle is mildly hypokinetic. The RVSP is 39.5mmHg. Atria : The left atrium size is normal. The right atrium size is normal. Mitral Valve : Mitral valve leaflets are mildly thickened. Moderate mitral regurgitation. No evidence of mitral valve stenosis. Great Vessels : The aortic root is normal in size. The ascending aorta is moderately dilated. Aortic arch is normal in caliber. The IVC collapses <50% with inspiration. Compared to echocardiogram from 07/18/2018: There is no significant change. Wall motion Left Ventricle The left ventricle is normal size. Left ventricular systolic function is moderately decreased. There is normal left ventricular wall thickness. Regional wall motion abnormalities are noted. The left ingris tricular diastolic function is abnormal. There is no ventricular septal defect visualized. LVEF is 30 %. Right Ventricle The right ventricle is normal size. Right ventricle is mildly hypokinetic. The RVSP is 39.5mmHg. Atria The left atrium size is normal. The right atrium size is normal. The interatrial septum is intact wit h no evidence for an atrial septal defect. Aortic Valve The aortic valve is normal in structure. Aortic valve is trileaflet. There is no aortic valvular sten osis. No aortic regurgitation is present. Mitral Valve Mitral valve leaflets are mildly thickened. No evidence of mitral valve stenosis. Moderate mitral reg urgitation. Tricuspid Valve The tricuspid valve is normal in structure. There is no tricuspid valve stenosis. Mild to moderate tr icuspid regurgitation. Pulmonic Valve The pulmonary valve is normal in structure. There is no pulmonic valvular stenosis. Mild pulmonic reg urgitation. Great Vessels The aortic root is normal in size. The ascending aorta is moderately dilated. Aortic arch is normal i n caliber. The IVC collapses <50% with inspiration. Pericardium There is no pericardial effusion. 2D Dimensions IVSD d PLAX 1.16 cm M: 0.6-1.2 LV Vol A2C d MOD 179.5 mL LVPW d PLAX 0.91 cm M: 0.6 - 1.2 LV Vol A4C d MOD 121.0 mL LVID d PLAX 5.61 cm M: 4.2 - 5.8 LA vol/ BSA A2C s A-L 21.1 mL/m2 LVDs 4.95 cm M: 2.5 - 4.0 LA vol/ BSA A4C s A-L 35.6 mL/m2 Ao Root d 3.22 cm M: 3.1 - 3.7 LA Vol/ BSA Biplane s A-L 32.4 mL/m2 RA Area A4C 23.81 cm2 LA Area A4C s MOD 23.26 cm2 RA Vol/ BSA A4C s A-L 37.9 mL/m2 LA Area A2C s MOD 15.18 cm2 Ao Asc Diam d 3.99 cm M: 2.6 - 3.4 LV EF A4C MOD 29.9 % LV EF Teichholz 23.3 % LV EF A2C MOD 29.9 % LVEF (Espinosa's) 28.36 % M: 52 - 72 LV EF Biplane MOD 28.4 % LV Volume 111.54 mL M: 62 - 150 SV 41.81 mL LV Volume Index 57.20 mL/m2 M: 34 - 74 SV Index 21.46 mL/m2 LV Vol Biplane MOD 147.4 mL FS 10.80 % M-Mode TAPSE 2.11 cm (M/F) >1.7 LV Diastology MV E' medial 0.064 (>0.07 m/s) E/A Ratio 1.8 LV E/e MED 15.15 (<14) MV E Vmax 0.98 (0.4-1.3 m/s) MV E' lateral 0.071 (>0.1 m/s) MV A Vmax 0.55 (0.4-1.3 m/s) LV E/e LAT 13.75 (<14) MV E/A Ratio 1.77 MV E/E' medial 15.16 MV E/E' lateral 13.76 Aortic Valve LVOT Area 2.87 cm2 AoV Area Vmax 2.02 cm2 LVOT Vmax 1.11 m/s AoV Area/ BSA (Vmax) 1.04 cm2/m2 LVOT Mean Naveed. 0.68 m/s DEVENDRA Mean Naveed. 1.77 cm2 LVOT Peak Grad 4.9 mmHg DEVENDRA Mean Naveed. Index 0.91 cm2/m2 LVOT Mean Grad 2.3 mmHg LVOT VTI 0.192 m LVOT Diam s 1.90 cm AoV Vmax 1.58 m/s Velocity Ratio 0.70 AoV Mean Naveed. 1.11 m/s AoV Peak Grad 9.9 mmHg LVOT SV 55.13 mL AoV Mean Grad 5.5 mmHg AoV VTI 0.279 m AoV Area VTI 1.97 cm2 AoV Area/ BSA (VTI) 1.01 cm/m2 Mitral Valve MV DT 162 (160-240 msec) MR Vmax 4.89 m/s MV PHT 47 msec MR VTI 1.593 m MV Area PHT 4.69 cm2 MR Peak Grad 95.6 mmHg MV VTI 0.376 m MR Mean Grad 67.5 mmHg MV VTI Annulus 0.388 m MR PISA Radius 0.51 cm MV Area VTI 1.52 (4.0-6.0 cm2) MR EROA 0.12 cm2 MR Aliasing Velocity 0.35 m/s MR PISA 1.62 cm2 Pulmonary Valve PV Vmax 0.92 (0.5-1.5 m/s) RVOT Peak Gr. 1.63 mmHg PV Peak Grad 3.4 mmHg RVOT Mean Gr. 0.75 mmHg PV Mean Grad 1.7 mmHg RVOT VTI 0.107 m PV VTI 0.163 m RVOT Vmax 0.64 m/s Tricuspid Valve TR Peak Grad 31.4 mmHg TR Vmax 2.81 m/s RA Pressure 8.00 mmHg RVSP (TR) 39.5 mmHg
[2020-07-14] MEDS: Acetaminophen 325 MG TAB 650 MG PO ×2 (06:39→20:43)
--- NOTE | 2020-07-14 08:00 | DI.RAD_ITS ---
EXAM: XR CHEST 2V PA LATERAL CLINICAL HISTORY: Follow up on pleural effusion. TECHNIQUE: 2D digital imaging was performed. COMPARISON: CR,XR XR PORTABLE CHEST AP from 07/13/2020 also prior chest x-rays. FINDINGS: There is persistent left lower lobe infiltrate. There has been some reaccumulation of pleural fluid on the left side since the recent thoracentesis. This is now filled the small post thoracentesis pn eumothorax space. Small right pleural effusion also again noted. Heart size unchanged. Scoliosis again noted. IMPRESSION: DATA REPOSITORY: RADIATION DOSE DELIVERED:
--- NOTE | 2020-07-14 10:10 | W.NUTRFU ---
Date of service: 07/14/20 Time of Service: 10:10 Nutritional Follow up NOTE: 75 year old male admitted with pleural effusion with elevated troponin levels with hx of CHF. BMI wnl. Following heart healthy/low sodium diet with adequate intake to meet nutrient and fluid needs. Not considered at nutritional risk at this time. Will continue to follow. Time Spent in Nutritional Counseling and Treatment: 0
[2020-07-14] MEDS: Multivitamin TAB 1 TAB PO (10:31)
[2020-07-14] MEDS: Albuterol 2.5 MG/3 ML INH SOLN VIAL UPD ×3 (10:37→22:05)
--- NOTE | 2020-07-14 10:41 | PGE_ITS ---
Date of Service Date of service: 07/14/20 Time of Service: 10:41 Assessment and Plan Assessment and plan (1) Acute on chronic systolic (congestive) heart failure: Status: Acute Assessment and plan: I will attempt to reintroduce goal directed medical therapy starting w/ low dose valsartan 20 mg bid and if tolerating this then add low dose diuretics. He needs diuretics to control his volume however because he really does not exhibit external edema i.e. pedal edema, he does not feel he need diuretics and as long as his dry weight remains at 166 lbs he does not feel that he need diuretics. I think that he may be able to just take a diuretic every other day rather than daily. In past he had problems w/ dizziness, falls (orthostatic?); patient has interest in establishing w/ local cardiology at [facility] as travel to [facility] is burdensome. (2) Elevated troponin level not due to acute coronary syndrome: Status: Chronic Assessment and plan: chronic stable. no chest pain. negative stress echo 02/17/2020. (3) Bilateral pleural effusion: Status: Acute Assessment and plan: status left sided thoracentesis; pleural studies are pending Subjective Subjective Interval history since last seen: Patient had thoracentesis last night by Dr. Singh. I could not see in the notes how much fluid was taken off however judging by the CXR it appears that a large amount was taken off. However he did sustain a small pneumothorax. Patient also had transient atrial flutter last night but now is back in NSR. Patient entertained interest in meeting w/ Palliative care to discuss goals of his medical care. He is interested in a DNR/DNI code status. He understands that his cardiomyopathy is severe but he fails to understand that w/ appropriate medication, this can be controlled to give him some quality of life. Exam Narrative Exam Narrative: Elderly white male, alert, oriented but at times seems to have trouble recalling specific questions he wanted to discuss w/ me Lungs: right base w/ diminished breath sounds and some rales; upper field is clear; left base w/ improved aeration is improved since yesterday; upper left side is clear Heart RRR, soft systolic murmur over apex legs: no pitting edema Objective Last Vital Signs Temp 36.5 C 07/14/20 07:22 Pulse 61 07/14/20 07:22 Resp 18 07/14/20 07:22 BP 111/68 07/14/20 07:22 Pulse Ox 95 07/14/20 07:46 Laboratory Results - last 24 hr 07/13/20 07/13/20 20:52 20:52 Total Protein Cancelled Fluid Source Thoracic Fluid Color Red Fluid Clarity Cloudy Fluid WBC 223 Fld Polynuclear WBCs % 9 Fluid Mononuclear Cell 91
--- NOTE | 2020-07-14 11:35 | PCNE_ITS ---
Date of service: 07/14/20 Time of Service: 11:00 History of Present Illness Narrative: Gustavo is a pleasant 75 year old man with a history of ischemic cardiomypathy with LVEF of approximately 35%, S/p STEMI about 8 years ago, hx of cardiac arrest, atrial flutter, COPD on home O2, and hx of tongue cancer, s/p chemo and radiation. He had a fall about 2 months ago after a dizzy spell in wh ich he broke his fibula. He prefers natural remedies, he has been reluctant to take medications as prescribed by his molecular spectroscopist. He presented to the ED 07/12/20 with increasing SOB and was noted to have CHF exacerbation with pleural effusion, for which he underwent thoracentesis yesterday and subsequently had pneumothorax. He does not eat salt or sugar, but had some pistachios a few weeks ago and wonders if this contributed to his CHF exacerbation. He endorses SOB with activity at baseline, he has an occasional cough. He denies any CP. He reports that he is eating well and tolerating his diet, no N/V/D. He states, I am not going to live much longer anyway. He goes on to state that there is nothing to slow the progression of his congestive heart failure. He is encouraged to take medications as recommended by cardiology/hospitalist. He is agreeable to slowly add targeted therapy into his regimen. His goals are to keep working on his house. Fishing and bird hunting are import ant to him, he states, I live for bird hunting. He wears portable oxygen when he goes out walking in the [place]. He wants to stay in his home for as long as possible. He is interested in transferring care to [facility] cardiology. We discussed CODE status. He is clear that he does not want to go through being revived after cardiac arrest again and he does not want to be intubated again, however, he did not commit to changing his CODE status or completing a COLST form. He is agreeable to follow up with palliative as an outpatient and he will be set up with a home visit. Assessment and Plan Assessment and plan (1) Acute on chronic systolic (congestive) heart failure: Status: Acute (2) Bilateral pleural effusion: Status: Acute (3) Elevated troponin level not due to acute coronary syndrome: Status: Chronic (4) Anxiety: Status: Chronic (5) Hx of cardiac arrest: Status: Resolved (6) Hx of tongue cancer: Status: Resolved (7) Hx of atrial flutter: Status: Resolved (8) HTN (hypertension): Status: Chronic (9) CAD S/P percutaneous coronary angioplasty: Status: Chronic (10) Palliative care patient: Status: Acute Assessment and plan: Gustavo is a pleasant 75 year old man with a history of ischemic cardiomypathy with LVEF 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 He had a fall about 2 months ago after a dizzy spell in which he broke his fibula. He prefers natural remedies, he has been reluctant to take medications as prescribed by his molecular spectroscopist. We talked about adding targeted therapy into his regimen slowly and with low doses, which he has agreed to. He has tried to control his heart failure with diet and exercise, he generally does not eat salt or sugar, however, he ate salted pistachios a couple of weeks ago which likely triggered his exacerbation. We talked about CODE status. He is not ready to change his code status but talks about how he does not want to be revived if he has another cardiac arrest and he does not want intubation. I left a COLST form with him for review. We will continue to discuss CODE status at his follow up visits. Quality of life is important to him. He is agreeable to follow up after discharge, office notified. [facility] Medical History Acute myocardial infarction 2012 STEMI Anxiety Asthma BPH (benign prostatic hyperplasia) CAD S/P percutaneous coronary angioplasty Cardiomyopathy CHF (congestive heart failure) Chronic obstructive lung disease Elevated LFTs Elevated troponin History of tobacco use HTN (hypertension) Hx of atrial flutter a/w STEMI in 2012; single episode Hx of tongue cancer 2004; s/p chemo and XRT Hyperlipemia Left knee pain Occlusion of right vertebral artery Oxygen dependent 2L NC Pleural effusion, left Psoriasis Pulmonary hypertension Right carotid artery occlusion Surgical History Colonoscopy - [facility] (04/03/16) Coronary Stent 2012 EGD - [facility] History of total right hip arthroplasty S/P TURP tracheostomy Family History Mother Chronic congestive heart failure Father Personal history of malignant neoplasm Lung Cancer Social History Smoking/Tobacco Use Status: Former Tobacco Use Smoking risk assessment performed?: Yes Alcohol Intake: former Drug use: Never Substance use type: does not use, former substance user Date of last use: 30 years and crack/cocaine Household members: none Housing: house current occupation: retired [employer] Pets and animals: Yes Current gender identity: male Do you feel safe at home: Yes Do you feel safe in your relationship?: Yes Exam Narrative Exam Narrative: General: Thin man, sitting up in the chair in his hospital room, awake and alert, engages in conversation, flat affect. HEENT: normocephalic, atraumatic, pupils equal and round, makes eye contact, mucous membranes moist. Neck: supple, no JVD. Respiratory: respirations appear unlabored. wearing oxygen via nasal cannula. Extremities: moves all 4 extremities freely. No lower extremity edema. Results Last Vital Signs Temp 36.5 C 07/14/20 07:22 Pulse 71 07/14/20 10:47 Resp 12 07/14/20 10:47 BP 111/68 07/14/20 07:22 Pulse Ox 95 07/14/20 10:47 Labs Result diagrams: 07/13/20 05:21 07/13/20 05:21 Labs: Laboratory Results - last 24 hr 07/13/20 07/13/20 20:52 20:52 Total Protein Cancelled Fluid Source Thoracic Fluid Color Red Fluid Clarity Cloudy Fluid WBC 223 Fld Polynuclear WBCs % 9 Fluid Mononuclear Cell 91
--- NOTE | 2020-07-14 12:23 | PGE_ITS ---
Date of Service Date of service: 07/14/20 Time of Service: 08:00 Subjective Subjective Interval history since last seen: Patient has a very small pneumothorax on his chest x-ray today. At this point I do not think it is worth placing any chest tube or chest pain. We will continue to monitor and see how it progresses. X- ray ordered for tomorrow. Patient was off the floor both times he came to see him Objective Last Vital Signs Temp 36.9 C 07/14/20 11:45 Pulse 69 07/14/20 11:45 Resp 18 07/14/20 11:45 BP 147/79 H 07/14/20 11:45 Pulse Ox 99 07/14/20 11:45 Laboratory Results - last 24 hr 07/13/20 07/13/20 20:52 20:52 Total Protein Cancelled Fluid Source Thoracic Fluid Color Red Fluid Clarity Cloudy Fluid WBC 223 Fld Polynuclear WBCs % 9 Fluid Mononuclear Cell 91
--- NOTE | 2020-07-14 14:06 | CHAPLAIN ---
Gustavo was sitting up in a chair. He had just spoken with Erinn nava for his meal order before I arrived. I introduced myself and Redman said he'd had a busy day and wanted to be left alone for a while. I will check in with him another day.
[2020-07-14 17:08] LABS: Glucose, Fluid 105 mg/dL (See Note)
--- NOTE | 2020-07-14 17:46 | CMPROGNOTE_ITS ---
- If Service Date Differs Date of service: 07/14/20 Time of Service: 17:46 Care Management Progress Note S/O: Gustavo was pacing around his room when CM met with him. He reported that he is having a terrible day, and he is waiting for the provider to discuss with him the results of the Echo that was done earlier today. CM asked him how his meeting went with Edyta from Palliative Care, and he said that it went well. She will follow up with him in the community. CM will continue to follow. A: Gustavo is a 75 year old male admitted to [facility] on 07/12/20 with Hypoxemia, elevated triponin. P: Anticipate Gustavo will return home when medically cleared. He will be driven home via private vehicle by family. He will follow up with his PCP and discharge plan of care. CM will continue to follow.
[2020-07-14] MEDS: Valsartan 80 MG TAB 20 MG PO (20:18)
[2020-07-15] VITALS (7 sets, daily range): BP systolic 92–117; BP diastolic 48–68; PULSE 62–71; RESP 17–18; TEMP 36.5–36.8; O2SAT 94–98
[2020-07-15 07:18] LABS: Abs Immature Grans 0.01 10^3/uL (0.0-0.06); Absolute Basophil Count 0.01 10^3/uL (0.0-0.2); Absolute Lymphocyte Count 0.37 10^3/uL (1.2-3.4); Absolute Monocyte Count 0.52 10^3/uL (0.1-0.8); Absolute Neutrophil Count 5.98 10^3/uL (1.2-6.7); Basophils % 0.1; Eosinophils % 1.4; HGB 13.4 g/dL (13.5-17.5); Immature Grans % 0.1; Lymphocytes % 5.3; MCH 31.5 pg (27.0-33.0); MCHC 31.2 % (32.0-36.0); MCV 100.9 fL (80-95); MPV 9.8 fL (8.0-11.0); Monocytes % 7.4; Neutrophils % 85.7; Nucleated RBC 0 %; Platelet Count 177 10^3/uL (130-400); RBC 4.26 10^6/uL (4.36-5.78); RDW 12.7 % (11.8-14.1); RDW-SD 47.7 fL; WBC 6.99 10^3/uL (4.4-10.8)
--- NOTE | 2020-07-15 08:46 | DI.RAD_ITS ---
Exam(s) XR CHEST 2V PA LATERAL EXAM: XR CHEST 2V PA LATERAL CLINICAL HISTORY: PTX after procedure TECHNIQUE: 2D digital imaging was performed. COMPARISON: CR,XR XR PORTABLE CHEST AP from 07/13/2020 FINDINGS: MEDIASTINUM: Normal. HEART: Mild cardiomegaly. PULMONARY VASCULATURE: Normal. LUNGS: Left basilar infiltrate which may represent atelectasis or pneumonia. PLEURAL SPACE: There are small bilateral pleural effusions. There is a tiny persistent left pneumoth orax. BONE:Right convex thoracic scoliosis. Degenerative changes in the spine. OTHER FINDINGS:Normal. IMPRESSION: 1. Persistent tiny left pneumothorax. 2. Small bilateral pleural effusions. DATA REPOSITORY: RADIATION DOSE DELIVERED:
[2020-07-15] MEDS: Valsartan 40 MG TAB 20 MG PO (09:05)
[2020-07-15] MEDS: Multivitamin TAB 1 TAB PO (09:05)
--- NOTE | 2020-07-15 13:00 | W.PM.PROGNOT ---
Date of Service Date of service: 07/15/20 Time of Service: 13:00 Assessment and Plan Assessment and plan (1) Bilateral pleural effusion: Status: Acute (2) Pneumothorax on left: Status: Acute Assessment and plan: Very small pneumo on the left. OK to D?C from surgical stand point. No office follow up needed Subjective Subjective Interval history since last seen: Patient not in his room. Per nursing he is doing well. CXR reviewed, tiny pneumothorax. Small bilateral pleural effusions Objective Last Vital Signs Temp 97.7 F 07/15/20 11:46 Pulse 64 07/15/20 11:46 Resp 17 07/15/20 11:46 BP 92/48 L 07/15/20 11:46 Pulse Ox 95 07/15/20 11:46 Laboratory Results - last 24 hr 07/13/20 07/13/20 07/15/20 20:52 20:52 06:25 WBC 6.99 RBC 4.26 L Hgb 13.4 L Hct 43.0 MCV 100.9 H MCH 31.5 MCHC 31.2 L RDW 12.7 Plt Count 177 MPV 9.8 Immature Gran % 0.1 Neutrophils % 85.7 Lymphocytes % 5.3 Monocytes % 7.4 Eosinophils % 1.4 Basophils % 0.1 Nucleated RBC % 0 Absolute Neutrophils 5.98 Absolute Lymphocytes 0.37 L Absolute Monocytes 0.52 Absolute Eosinophils 0.10 Absolute Basophils 0.01 Fluid Glucose 105 Path Cons Comment See comment
[2020-07-15] MEDS: Albuterol 2.5 MG/3 ML INH SOLN VIAL UPD (13:19)
--- NOTE | 2020-07-15 14:02 | DSE_ITS ---
Date of service: 07/15/20 Time of Service: 14:02 DS: Diagnosis Discharge Diagnosis (1) Bilateral pleural effusion: Status: Chronic Asessment and Plan: follow up on his pleural studies including cytology is pending. (2) Pneumothorax on left: Status: Resolved Asessment and Plan: serial CXR post procedure showed resolution (3) Acute on chronic systolic (congestive) heart failure: Status: Chronic Asessment and Plan: see below (4) Cardiomyopathy: Status: Chronic Asessment and Plan: chronic ischemic cardiomyopathy w/ no significant changes in his echo findings and no new ischemic changes on recent stress echo. Patient needs to follow GDMT for CHF (i.e. BB, ARB, diuretics). He will try low dose valsartan however I emphasized to him that he needs to keep a dialogue w/ his providers as to any perceived side effects. (5) Chronic obstructive lung disease: Status: Chronic Asessment and Plan: cont. home oxygen at 2 LPM; cont. current nebulizers/HFA; follow up w/ Dr. Dawson at [facility]. (6) Depression: Status: Chronic Discharge Plan Disposition Patient Disposition: HOME Condition: Improving Discharge Details Reason For Visit: HYPOXEMIA, ELEVATED TROPONIN Admit Date/Time: 07/14/20 12:36 Admit Provider: Barrera Cisse Attending Provider: Barrera Cisse Primary Care Provider: Magalie Sanchez Hospital Course Hospital Course: 75-year-old white male with a history of COPD and ischemic cardiomyopathy who presents to the ED at [facility] with hypoxemia and dyspnea and tachycardia. Patient has been receiving all of his medical care through providers at [facility] including his foundry laborer coreroom Dr. Ze Mckeon, his manager studio, Dr. Luis Antonio Dawson, and his PCP Dr. Bonnie Sanchez. Per my review of his [facility] records patient has stopped taking any of his cardiac meds other than his Toprol. Patient came to the ER because of pulse oximetry of 75% on his home pulse oximeter despite use of his home oxygen at 2 L/min per nasal cannula. He denied any chest pain or pressure or palpitations. He had a work-up in the emergency department included EKG, chest x-ray, CTA of his chest as well as routine labs. On arrival he was not hypoxemic his saturation was 100% on 2 L/min per nasal cannula however chest x-ray demonstrated cardiomegaly and bilateral pleural effusions. Because of a high D-dimer of 2294 CT of the chest was performed and showed no acute pulmonary emboli but he has bilateral nonloculated pleural effusions larger on the right and associated with volume loss in the right lower lobe basal segments in the left lower lobe segment. Is also noted to have card iomegaly and dilated ascending thoracic aorta 4 cm with no dissection. His EKG was consistent with LVH with repolarization abnormalities with deeply negative ST-T wave abnormalities in limb lead I, aVL, V5 to V6 as well as evidence of left atrial enlargement. Initial plan was to discharge him home if he had no oxygen desaturation while wearing his baseline home oxygen flow 2 L/min however when the troponin came back abnormal 0.20 it was decided to admit him for observation. proBNP was elevated 1999. CBC and CMP were unremarkable other than elevated carbon dioxide level of 37. LFTs and electrolytes and renal function were all normal. Serial troponins were monitored and they remained plateaued at 0.20. He had no chest pain throughout his hospital stay. After review of his CT findings surgical consultation was obtained for thoracentesis. Dr. Ary Singh performed left chest thoracentesis on July 13, 2020. 300 mL of fluid was removed. This was with cloudy fluid with 223 white cells with a mononuclear component 91% mononuclear cells. Pleural fluid protein and LDH are still pending at this time. Cytology was sent off is pending at this time. Patient sustained a small pneumothorax which has resolved. I had a number of discussions with the patient about proper management of his congestive heart failure. Unfortunately patient has a very skeptical and distrustful attitude towards the medical profession as well as the pharmaceutical profession. He prefers treating himself with vitamins and supplements and exercise. Spent a lengthy amount of time discussing the types of medications used to treat congestive heart failure including his beta-ann which he has been faithful about taking as well as diuretics and LANRE inhibitors and angiotensin receptor blockers. He states that he has maintained a baseline weight of 166 pounds and based on that and the lack of peripheral edema he took himself off his diuretics. He was intolerant to lisinopril because it caused him lightheadedness. He also cannot tolerate a statin for prevention of future coronary events due to severe muscle pains. During this hospitalization I tried to reinitiate low-dose ARB including valsartan at 20 mg twice a day. On the day of discharge she complained that the valsartan caused him lightheadedness and blurry vision and nursing documented his blood pressure this morning prior to his valsartan was 115/67 and at 1146 it was 92/48. However this was taken with an automatic cuff in the right arm and was not checked by manual. I personally did orthostatic blood pressures approximately an hour later and got a blood pressure while he was sitting from his left arm 110/54 then after standing him allowing him to stand for a minute repeated it and got a blood pressure of 124/60. Then had a discussion with him about trying to continue the valsartan but at a once a day dose at bedtime. Patient expressed interest in obtaining his medical care closer to home and would like to follow-up with a foundry laborer coreroom here at [facility] and eventually he would like to find a manager studio and primary care provider here in [place]. I explained to him that at present time we do not have a manager studio but we have recruited one who will be starting in September. manager call is to give him a list of available primary care providers for him to pick from. I did not restart his diuretics at the present time as he is not showing evidence of volume overload. That is to say he has no abdominal swelling and no JVD and no pedal edema. Patient did meet with palliative care provider to discuss his goals of care. Patient has become increasingly frustrated with the trajectory of his health and he is expressed an interest that he does not want to prolong his life in the event that he has a cardiopulmonary arrest. He specifically denied any suicidal ideation although he does feel that he is depressed. He will be followed up with Palliative care as outpatient. I discussed w/ him taking an antidepressant and he is willing to try Sertraline. I will start him on low dose at bedtime of 25 mg sertraline. As for his diuretics, he still has lasix and spironolactone at home. I think th at he will need to restart diuretics but I would like to try him on one agent at a time so we can parse out any side effects and monitor his renal fxn and BP. Ultimately he will probably need to restart some diuretics perhaps at low dose and every other day but will leave this to cardiology to restart. He will have repeat BMP in one week. Echocardiogram was done during this admissson (see report for details), this demonstrated moderate systolic LV dysfunction w/ LVEF 30%, mod. MR, mildly hypokinetic RV. (this is similar to his prior echo from 07/18/2018 and to his stress echo in 2020 at [facility]. Home Meds and New Rx's Prescriptions: New guaifenesin [Mucinex] 600 mg tablet extended release 12hr 600 mg PO BID Qty: 14 RF: 0 valsartan 40 mg tablet 20 mg PO HS Qty: 30 RF: 0 sertraline 25 mg tablet 25 mg PO HS Qty: 30 RF: 1 Continued B-Complex Plus Vit C (calcium) 1 EACH tablet 1 ea PO DAILY RF: 0 cannabidiol 100 mg/mL Solution 600 mg PO DAILY RF: 0 metoprolol succinate 50 mg tablet extended release 24 hr 50 mg PO DAILY RF: 0 multivitamin [Multi-Day] 1 EACH tablet 2 ea PO DAILY RF: 0 albuterol sulfate [ProAir HFA] 200 PUFF HFA aerosol inhaler 2 puff Inhalation Q4H PRN PRNRF: 0 vitamin E 400 UNIT capsule 400 unit PO DAILY RF: 0 cholecalciferol (vitamin D3) [Vitamin D3] 1,000 UNIT capsule 5,000 unit PO DAILY RF: 0 Fish Oil 1 EACH capsule 1 ea PO DAILY RF: 0 Sheldon-Mag 1 EACH tablet,chewable 1 ea PO DAILY RF: 0 coenzyme [id number] 1 EACH capsule 1 ea PO DAILY RF: 0 acetaminophen [Mapap Extra Strength] 500 MG tablet 500 mg PO PRN PRNRF: 0 oregano oil 1,500 mg Capsule PO RF: 0 Discharge Instructions Instructions: Heart Failure (DC), Dyspnea (ED), Low-Sodium Diet (DC) Stand Alone Forms: Nursing Discharge Form Referrals: Martha Walker MD [ [facility] STAFF PHYSICIAN] - 07/21/20 11:20 am Magalie Sanchez [Primary Care Provider] - 07/28/20 10:20 am Activity:: Activity as Tolerated Equipment/Supplies:: No Equipment Needed Diet:: Low Sodium Discharge Orders Discharge Orders: Discharge Order (Routine); Ordered 07/15/20 Ordered By: Santana Moreno Other Ambulatory Orders: Basic Metabolic Panel (Routine) Timeframe: 1 Week Facility: [facility] - Location: Laboratory Outpatient Ordered By: Santana Moreno DS: Summary Time Spent with Patient providing and/or coordinating discharge services: Greater than 30 minutes Specific discharge activities: discussion of his disease management; discussion of his meds, arranging follow up tests/appointments, review his echo, labs w/ patient Status at Discharge Functional status at discharge: independent ambulation Overall status at discharge: patient is progressing back to baseline Mental Status: mental status grossly normal and other Speech and Movement: speech and movement normal Mood: congruent mood Affect: normal affect Exam Narrative Exam Narrative: Elderly white male, alert, oriented Lungs: right base w/ diminished breath sounds and some rales; upper field is clear; left base w/ improved aeration is improved since yesterday; upper left side is clear Heart RRR, soft systolic murmur over apex legs: no pitting edema Psych Mental Status: mental status grossly normal Speech and Movement: speech and movement normal Mood: congruent mood Affect: normal affect DS: Data Vitals/I&O Vitals and I&O: Vital Signs Temperature 36.5 C 07/15/20 11:46 Temperature Source Temporal Artery Scan 07/15/20 11:46 Pulse 64 07/15/20 11:46 Pulse Rhythm Regular 07/15/20 09:00 Pulse 70 07/12/20 20:20 Respiratory Rate 17 07/15/20 11:46 Respiratory Effort Non-Labored 07/15/20 09:00 Respiratory Depth Normal 07/15/20 09:00 Respiratory Pattern Normal 07/15/20 09:00 Blood Pressure 92/48 L 07/15/20 11:46 Blood Pressure Mean 85 07/12/20 20:00 Blood Pressure Position Sitting 07/12/20 14:46 Pulse Oximetry 95 07/15/20 11:46 Oxygen Delivery Method Nasal Cannula 07/15/20 11:46 Oxygen Flow Rate 2 07/15/20 11:46 Pain Level 0 07/15/20 11:46 Comment 07/15/20 11:46 Intake & Output 07/14/20 07/15/20 07/15/20 23:59 11:59 23:59 Intake Total 240 / 480 480 / 480 Output Total 400 / 1200 Balance -160 / -720 480 / 480 Weight 74.7 kg Intake: Oral 240 / 480 480 / 480 Output: Urine 400 / 1200 Other: Urine Color Yellow Urine Appearance Clear Clear Urine Odor None Comment independent Voiding Methods Urinal Toilet Data Completed and Pending Labs on day of discharge: Labs from last 24 hours 07/15/20 07/13/20 07/13/20 06:25 20:52 20:52 WBC 6.99 RBC 4.26 L Hgb 13.4 L Hct 43.0 MCV 100.9 H MCH 31.5 MCHC 31.2 L RDW 12.7 Plt Count 177 MPV 9.8 Immature Gran % 0.1 Neutrophils % 85.7 Lymphocytes % 5.3 Monocytes % 7.4 Eosinophils % 1.4 Basophils % 0.1 Nucleated RBC % 0 Absolute Neutrophils 5.98 Absolute Lymphocytes 0.37 L Absolute Monocytes 0.52 Absolute Eosinophils 0.10 Absolute Basophils 0.01 Fluid Glucose 105 Path Cons Comment See comment 07/13/20 20:52 Chest - Left Lower Anaerobic Culture - Pending Preliminary micro results at discharge 07/13/20 20:52 Body Fluid Culture - Preliminary Thoracentesis 07/13/20 20:52 Anaerobic Culture - Pending Chest - Left Lower [facility] Medical History (Updated 07/15/20 @ 14:12 by Santana Moreno) Acute myocardial infarction 2012 STEMI Anxiety Asthma BPH (benign prostatic hyperplasia) CAD S/P percutaneous coronary angioplasty Cardiomyopathy CHF (congestive heart failure) Chronic obstructive lung disease Elevated LFTs Elevated troponin History of tobacco use HTN (hypertension) Hx of atrial flutter a/w STEMI in 2012; single episode Hx of tongue cancer 2004; s/p chemo and XRT Hyperlipemia Left knee pain Occlusion of right vertebral artery Oxygen dependent 2L NC Palliative care patient Pleural effusion, left Psoriasis Pulmonary hypertension Right carotid artery occlusion Surgical History Colonoscopy - [facility] (04/03/16) Coronary Stent 2012 EGD - [facility] History of total right hip arthroplasty S/P TURP tracheostomy Family History Mother Chronic congestive heart failure Father Personal history of malignant neoplasm Lung Cancer Social History Smoking/Tobacco Use Status: Former Tobacco Use Smoking risk assessment performed?: Yes Alcohol Intake: former Drug use: Never Substance use type: does not use, former substance user Date of last use: 30 years and crack/cocaine 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
[2020-07-15 15:23] LABS: Fluid Type PLEURAL; Protein,Total, BF 2.8 g/dL
[2020-07-15 15:24] LABS: Fluid Type PLEURAL; Lactate Dehydrogenase (LD), BF 117 U/L
--- NOTE | 2020-07-15 15:59 | PDOC.CMDIS ---
- If Service Date Differs Date of service: 07/15/20 Time of Service: 15:59 LACE Index Scoring Tool - Questions: Length of Stay (in days): 1 Acuity (Admit via E.D.?): Yes Comorbidities: Previous M.I., Congestive Heart Failure, Chronic Pulmonary Disease E.D. Visits: 5 - Answers: Total Score: 13 Risk of Readmission: High Risk Care Management Discharge Reason for Hospitalization: Hypoxemia, elevated triponin Discharge Plan: Gustavo will return home with no new services.He will drive himself home in his own vehicle. Gustavo has an appointmnet with his PCP's practice at [facility] for 07/28/20 at 10:20 am. Gustavo has verbalized that he would like to establish with a new PCP in this area. CM provided him with contact information for [facility] after contacting the practice, with instructions to call them to initiate the process. Patient/Family Education Needs: Review of discharge instructions, medications, follow up plan, Ask Me Three
== END 2020-07-15 16:33 | disposition home or self-care (01) | DRG 292 ==
LOC: ER 20:08 → MS 20:41
PROVIDERS: Internal Medicine; Physician Assistant; Admitting Provider Family Medicine; Emergency Provider Nurse Practitioner Acute Care; PCP Family Medicine; Visit Provider Family Medicine
DX: I11.0 Hypertensive heart disease with heart failure (principal); J91.8 Pleural effusion in other conditions classified elsewhere; J95.811 Postprocedural pneumothorax; I50.23 Acute on chronic systolic (congestive) heart failure; I65.21 Occlusion and stenosis of right carotid artery; I25.5 Ischemic cardiomyopathy; J44.9 Chronic obstructive pulmonary disease, unspecified; R09.02 Hypoxemia; I77.810 Thoracic aortic ectasia; R74.8 Abnormal levels of other serum enzymes; I25.10 Atherosclerotic heart disease of native coronary artery without angina pectoris; I50.82 Biventricular heart failure; F41.9 Anxiety disorder, unspecified; E78.5 Hyperlipidemia, unspecified; I27.20 Pulmonary hypertension, unspecified; I25.2 Old myocardial infarction; Z99.81 Dependence on supplemental oxygen; Z95.5 Presence of coronary angioplasty implant and graft; Z87.891 Personal history of nicotine dependence; Z91.128 Patient's intentional underdosing of medication regimen for other reason; T50.0X6A Underdosing of mineralocorticoids and their antagonists, initial encounter; T50.1X6A Underdosing of loop [high-ceiling] diuretics, initial encounter; Z85.810 Personal history of malignant neoplasm of tongue
CPT/HCPCS: 32554; 36415; 71275; 80053; 87635; 93005; 93306; 94618; 99222; 99232; 99285; 71045; 71046; 71048; 81003; 81015; 81373; 83615; 83735; 83880; 84155; 84157; 84443; 84484; 85025; 85379; 85610; 87070; 87075; 87205; 88104; 89051; 93010; 94640; 99220; 99226; 99239; G0378; J1644; J7613

== ENCOUNTER 2020-07-15 21:21 | Inpatient (IN) | payer MEDICARE, MEDICAID, SELFPAY ==
[2020-07-15] VITALS (13 sets, daily range): BP systolic 100–129; BP diastolic 54–74; PULSE 79–121; RESP 10–19; TEMP 36.7; O2SAT 97–99
--- NOTE | 2020-07-15 21:30 | RT.EKG_ITS ---
APPROVED REPORT Exam: Resting ECG Patient Location: E HR:100 bpm ECG Measurements Heart Rate 100 AXIS DC [id number] P [id number] QRSd 105 QRS 48 QT 356 T -84 QTc 462 Conclusion Atrial flutter with predominant 3:1 AV block...A-rate 319, multiple Ps Ventricular premature complex...V complex w/ short R-R interval Probable left ventricular hypertrophy...(RaVL+SV3)xQRSd >280 Repol abnrm suggests ischemia, lateral leads...ST dep, T neg, I aVL V5 V6 ST elevation, consider anterior injury...ST >0.15mV, V1-V5 no stemi
--- NOTE | 2020-07-15 21:41 | W.ED.GENAD ---
Discharge Plan Disposition Patient Disposition: [facility] IN[facility]IENT Condition: Serious Discharge Details Clinical Impression: Acute respiratory failure with hypercapnia, Consolidation of left lower lobe of lung, Pleural effusion Primary Care Provider: Magalie Sanchez ED Provider: Carlos Chowdhury Home Meds and New Rx's Prescriptions: No Action B-Complex Plus Vit C (calcium) 1 EACH tablet 1 ea PO DAILY RF: 0 cannabidiol 100 mg/mL Solution 600 mg PO DAILY RF: 0 metoprolol succinate 50 mg tablet extended release 24 hr 50 mg PO DAILY RF: 0 guaifenesin [Mucinex] 600 mg tablet extended release 12hr 600 mg PO BID Qty: 14 RF: 0 valsartan 40 mg tablet 20 mg PO HS Qty: 30 RF: 0 sertraline 25 mg tablet 25 mg PO HS Qty: 30 RF: 1 multivitamin [Multi-Day] 1 EACH tablet 2 ea PO DAILY RF: 0 albuterol sulfate [ProAir HFA] 200 PUFF HFA aerosol inhaler 2 puff Inhalation Q4H PRN PRNRF: 0 vitamin E 400 UNIT capsule 400 unit PO DAILY RF: 0 cholecalciferol (vitamin D3) [Vitamin D3] 1,000 UNIT capsule 5,000 unit PO DAILY RF: 0 Fish Oil 1 EACH capsule 1 ea PO DAILY RF: 0 Sheldon-Mag 1 EACH tablet,chewable 1 ea PO DAILY RF: 0 coenzyme [id number] E 1 EACH capsule 1 ea PO DAILY RF: 0 acetaminophen [Mapap Extra Strength] 500 MG tablet 500 mg PO PRN PRNRF: 0 oregano oil 1,500 mg Capsule PO RF: 0 Medical Decision Making 75-year-old male with multimedical problems including history of COPD, ischemic cardiomyopathy, bilateral pleural effusions, recent hospitalization for hypoxia, status post recent thoracentesis and recent subsequent pneumothorax that has resolved. Returns now with altered mental status. Patient is confused with no focal deficits. He is generally weak needing assistance with transitioning from car to wheelchair and wheelchair to bed. Patient has no pain. He does have some rales on auscultation of the right lung and is tachypneic, saturating well on O2. Consider hypercapnia. ABG reviewed and PCO2 79. This may be etiology for his altered mental status. I have requested that nursing place BiPAP and called respiratory therapy to assist in care. Consider acute intracranial process. Will obtain CT of the head. EKG was reviewed and interpreted by me: Darshan flutter 100 bpm, 3:1 AV block, lateral depressions noted. No STEMI. Labs reviewed and troponin is elevated although improved from hospitalization. A BNP was ordered given the patient's history of ischemic cardiomyopathy recent acute on chronic congestive heart failure, shortness of breath, edema in his lower extremities, and to determine if he has worsening acute congestive heart failure. BNP is in fact elevated although is improved from last check 3 days ago. 2321 --chest x-ray was interpreted by radiology: Bilateral pleural effusions, left lower lobe parenchymal consolidation. 2328 --I called and spoke with Dr. Cisse, discussed ED presentation and course, he will admit the patient. We discussed need for antibiotics given chest x-ray findings and the request ceftriaxone IV be initiated. CT head interpreted by radiology: Old right temporoparietal infarct. No hemorrhage. No acute intracranial abnormality. Urinalysis pending at time of admission. HPI General Mode of arrival: wheelchair. Date/Time Provider Initiated Documentation: 07/15/20 21:21. Limitations to Documentation: altered mental status. Information obtained by: patient and EMS. HPI Narrative: 75-year-old male with multiple medical problems including history of COPD and ischemic cardiomyopathy, on home O2, atrial flutter, here with altered mental status. History limited secondary to altered mental status. Patient was recently hospitalized for worsening hypoxia and elevated troponin. During hospitalization he had thoracentesis performed for pleural effusions and did develop a small pneumothorax which resolved. Patient was discharged in the hospital earlier today. Improved condition with normal mentation per staff. Patient's friend brought him back to the hospital noting that he seems confused and complaining of dizziness. Patient denies pain. Related Data Home Medications Medication Instructions Recorded Confirmed B-Complex Plus Vit C (calcium) 1 ea PO DAILY 07/11/12 07/15/20 Sheldon-Mag 1 ea PO DAILY 04/02/16 07/15/20 Fish Oil 1 ea PO DAILY 04/02/16 07/12/20 albuterol sulfate [ProAir HFA] 2 puff INHALATION Q4H PRN PRN 04/02/16 07/15/20 cholecalciferol (vitamin D3) 5,000 unit PO DAILY 04/02/16 07/15/20 [Vitamin D3] coenzyme [id number] E 1 ea PO DAILY 04/02/16 07/15/20 multivitamin [Multi-Day] 2 ea PO DAILY 04/02/16 07/15/20 vitamin E 400 unit PO DAILY 04/02/16 07/15/20 acetaminophen [Mapap Extra 500 mg PO PRN PRN 04/03/16 07/15/20 Strength] oregano oil mg PO 10/19/19 05/19/20 cannabidiol 600 mg PO DAILY 01/13/20 07/15/20 metoprolol succinate 50 mg PO DAILY 03/04/20 07/15/20 guaifenesin [Mucinex] 600 mg PO BID #14 tab 07/12/20 07/15/20 sertraline 25 mg PO HS #30 tab 07/15/20 07/15/20 valsartan 20 mg PO HS #30 tab 07/15/20 07/15/20 Previous Rx's Medication Instructions Recorded guaifenesin [Mucinex] 600 mg PO BID #14 tab 07/12/20 sertraline 25 mg PO HS #30 tab 07/15/20 valsartan 20 mg PO HS #30 tab 07/15/20 Allergies Allergy/AdvReac Type Severity Reaction Status Date / Time carvedilol Allergy Unverified 07/15/20 22:19 General SCOTT: 2 Review of Systems Narrative: Limited secondary to confusion Constitutional Constitutional: Denies body ache(s) and Denies fever(s) ENT Ears, Nose, Mouth, and Throat: Reports dizziness Cardiovascular Cardiovascular: Denies chest pain Gastrointestinal Gastrointestinal: Denies abdominal pain Neurologic Neurologic: Reports dizziness PFSH Medical History (Updated 07/15/20 @ 23:30 by Carlos Chowdhury MD) Acute myocardial infarction 2012 STEMI Anxiety Asthma BPH (benign prostatic hyperplasia) CAD S/P percutaneous coronary angioplasty Cardiomyopathy CHF (congestive heart failure) Chronic obstructive lung disease Elevated LFTs Elevated troponin History of tobacco use HTN (hypertension) Hx of atrial flutter a/w STEMI in 2012; single episode Hx of tongue cancer 2004; s/p chemo and XRT Hyperlipemia Left knee pain Occlusion of right vertebral artery Oxygen dependent 2L NC Palliative care patient Pleural effusion, left Psoriasis Pulmonary hypertension Right carotid artery occlusion Surgical History Colonoscopy - [facility] (04/03/16) Coronary Stent 2012 EGD - [facility] History of total right hip arthroplasty S/P TURP tracheostomy Family History Mother Chronic congestive heart failure Father Personal history of malignant neoplasm Lung Cancer Social History Smoking/Tobacco Use Status: Former Tobacco Use Smoking risk assessment performed?: Yes Alcohol Intake: former Drug use: Never Substance use type: does not use, former substance user Date of last use: 30 years and crack/cocaine Details: No ETOH since 1987. States he does use CBD oil and may have drank some today. 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 Exam Const General: cooperative and ill appearing Nutritional Appearance: thin Orientation: alert and confused HENMT Head: normocephalic and atraumatic Mouth: moist mucous membranes Eyes Conjunctivae: normal conjunctivae Sclera: normal sclerae Neck Neck: trachea midline and supple Resp Auscultation: rales on the right, no rhonchi and no wheezes Cardio Rate: tachycardic Rhythm: regular rhythm GI Palpation: soft, not firm, no guarding, no masses, not rigid and nontender Skin General skin exam: no rashes or lesions noted Neuro General: patient alert, patient awake and tone normal Extrem General: no calf tenderness and edema Laterality: bilateral (trace) Psych Appearance: grossly normal Speech and Movement: speech and movement normal Critical Care Time Critical Care Time Critical Care Time: Yes Total Critical Care Time: 40 Attestation: I spent greater than 40 minutes addressing this patient's immediate life threats. Please see MDM section of note. This time was spent engaged in work directly related to the patient's care, exclusive of separate procedures, and failure to initiate these interventions would have likely resulted in clinically significant or life threatening deterioration in the patient's condition.
[2020-07-15 22:09] LABS: Abs Immature Grans 0.02 10^3/uL (0.0-0.06); Absolute Basophil Count 0.02 10^3/uL (0.0-0.2); Absolute Eosinophil Count 0.05 10^3/uL (0.0-0.7); Absolute Lymphocyte Count 0.33 10^3/uL (1.2-3.4); Absolute Monocyte Count 0.51 10^3/uL (0.1-0.8); Absolute Neutrophil Count 6.38 10^3/uL (1.2-6.7); Basophils % 0.3; Eosinophils % 0.7; HCT 45.4 % (40.0-50.0); HGB 14.3 g/dL (13.5-17.5); Immature Grans % 0.3; Lymphocytes % 4.5; MCH 31.7 pg (27.0-33.0); MCHC 31.5 % (32.0-36.0); MCV 100.7 fL (80-95); MPV 9.1 fL (8.0-11.0); Neutrophils % 87.2; Nucleated RBC 0 %; Platelet Count 174 10^3/uL (130-400); RBC 4.51 10^6/uL (4.36-5.78); RDW 12.7 % (11.8-14.1); RDW-SD 47.6 fL; WBC 7.31 10^3/uL (4.4-10.8)
[2020-07-15 22:16] LABS: BE (Venous) 15 mmol/L (-2-3); HCO3 (Venous) 41 mmol/L (23-28); O2 Sat (Venous) 67 %; TCO2 (Venous) 37 mmol/L (24-29); pH (Venous) 7.32 (7.31-7.41); pO2 (Venous) 38 mmHg
[2020-07-15 22:21] LABS: pCO2 (Venous) 79 mmHg (41-51)
[2020-07-15 22:24] LABS: Ammonia 22 umol/L (11-32)
[2020-07-15 22:40] LABS: ALT 38 U/L (16-63); AST 26 U/L (15-37); Albumin 3.2 g/dL (3.4-5.0); Alkaline Phosphatase 63 U/L (46-116); Anion Gap 0.9 mmol/L (3-11); BUN 29 mg/dL (7-18); Bilirubin, Total 0.6 mg/dL (0.2-1.0); CO2 40.1 mmol/L (21.0-32.0); CREATININE 1.6 mg/dL (0.70-1.30); Calcium 9.3 mg/dL (8.5-10.1); Chloride 97 mmol/L (98-107); Estimated GFR 42.46 (mL/min/1.73m2); Glucose 142 mg/dL (74-106); Magnesium 1.9 mg/dL (1.8-2.4); Potassium 4.6 mmol/L (3.5-5.1); Sodium 138 mmol/L (136-145); Total Protein 7.3 g/dL (6.4-8.2)
[2020-07-15 22:42] LABS: Troponin I 0.14 ng/mL (<0.06)
[2020-07-15 22:44] LABS: NT-proBNP 1517 pg/mL (<300)
--- NOTE | 2020-07-15 22:54 | DI.RAD_ITS ---
Exam(s) XR CHEST 2V PA LATERAL EXAM: XR CHEST 2V PA LATERAL CLINICAL HISTORY: recent pleural effusion and ptx TECHNIQUE: 2D digital imaging was performed. COMPARISON: CR XR CHEST 2V PA LATERAL from 07/15/2020 FINDINGS: MEDIASTINUM: Normal. HEART: Cardiomegaly. PULMONARY VASCULATURE: Atherosclerosis of the thoracic aorta. LUNGS: Persistent left basilar infiltrate. PLEURAL SPACE: Small bilateral pleural effusions. No demonstrable pneumothorax. BONE:Marked right convex scoliosis. OTHER FINDINGS:Normal. IMPRESSION: 1. No demonstrable pneumothorax. 2. Stable small bilateral pleural effusions and left basilar infiltrate. DATA REPOSITORY: RADIATION DOSE DELIVERED:
--- NOTE | 2020-07-15 22:54 | DI.CT_ITS ---
Exam(s) CT HEAD WO EXAM: CT HEAD WO CLINICAL HISTORY: altered mentation. TECHNIQUE: Imaging Protocol: Axial computed tomography images with coronal and sagittal reformatted images were created and reviewed COMPARISON: No exams were available for comparison FINDINGS: Ventricles and Extra axial spaces: Normal in size and morphology for the patient's age. Hemorrhage: None. Cerebral parenchyma: No acute territorial infarct. There are areas of decreased attenuation in the w last matter suggesting chronic microvascular ischemic change. There is an old right temporoparietal infarct. Midline shift: None. Brainstem/Cerebellum: Normal. Calvarium: Normal. Visualized Paranasal sinuses/Mastoids: Clear. Soft Tissues: Unremarkable. IMPRESSION: No acute intracranial process. RADIATION DOSE DELIVERED: 812.71mGy.cm Total DLP DATA REPOSITORY: All CT scans at this facility are submitted to the National Radiology Data Registry (NRDR) Dose Index Registry (DIR) with the [employer] ([employer]). RADIATION OPTIMIZATION: All CT scans at this facility use at least one of these dose optimization te chniques: automated exposure control; mA and/or kV adjustment per patient size (includes targeted exa ms where dose is matched to clinical indication); or iterative reconstruction.
[2020-07-15 23:07] LABS: ETHANOL BLOOD < 3.0 mg/dL (<3)
--- NOTE | 2020-07-15 23:14 | DI.VRAD_ITS ---
PROCEDURE INFORMATION: Exam: XR Chest Exam date and time: 07/15/2020 10:50 PM Age: 75 years old Clinical indication: Condition or disease; Patient HX: Recent pleural effusion and ptx TECHNIQUE: Imaging protocol: XR of the chest. Views: 2 views. COMPARISON: CR XR CHEST 2V PA LATERAL 07/15/2020 8:32 AM FINDINGS: Lungs: Retrocardiac left lower lobe infiltrate. Pleural spaces: Bilateral pleural effusions. No pneumothorax. Heart/Mediastinum: Cardiomegaly. Vasculature: Vascular calcification. Bones/joints: Severe convex right scoliosis of thoracolumbar spine. IMPRESSION: 1. Bilateral pleural effusions. 2. Left lower lobe parenchymal consolidation. 3. Cardiomegaly. Dictated and Authenticated by: Stuart Busby MD. Ordering:NADIA Gonzalez MD
--- NOTE | 2020-07-15 23:18 | DI.VRAD_ITS ---
PROCEDURE INFORMATION: Exam: CT Head Without Contrast Exam date and time: 07/15/2020 10:54 PM Age: 75 years old Clinical indication: Altered mental status/memory loss; Other: Not specified TECHNIQUE: Imaging protocol: Computed tomography of the head without contrast. Radiation optimization: All CT scans at this facility use at least one of these dose optimization techniques: automated exposure control; mA and/or kV adjustment per patient size (includes targeted exams where dose is matched to clinical indication); or iterative reconstruction. COMPARISON: No relevant prior studies available. FINDINGS: Brain: Old right temporoparietal infarct. No hemorrhage. Unremarkable white matter. No mass effect. Cerebral ventricles: No ventriculomegaly. Bones/joints: Unremarkable. No acute fracture. Paranasal sinuses: Visualized sinuses are unremarkable. No fluid levels. Mastoid air cells: Visualized mastoid air cells are well aerated. Soft tissues: Unremarkable. IMPRESSION: No acute intracranial abnormality. Dictated and Authenticated by: Stuart Busby MD. Ordering:NADIA Gonzalez MD
[2020-07-15 23:23] LABS: Source Nasal/Nares
--- NOTE | 2020-07-15 23:31 | W.PM.HP.N ---
Date of service: 07/15/20 Time of Service: 23:31 Assessment and Plan Assessment and plan (1) Acute respiratory failure with hypercapnia: Start date: 07/15/20 Status: Acute Assessment and plan: This is a 75-year-old gentleman just hospitalized for hypoxemia and pleural effusion with thoracentesis and stabilization prior to discharge. He returned with altered mental status and CO2 retention with chronic home O2. He cleared with BiPAP and presently is more comfortable with O2 supplementation and back to normal mentation. Venous blood gas will be repeated and intermittent BiPAP will be used if patient allows. Long-term he may want to consider BiPAP as an option for home therapy if indicated. Reevaluation by respiratory therapy prior to discharge. Patient is a full code. (2) Consolidation of left lower lobe of lung: Start date: 07/15/20 Status: Acute Assessment and plan: Patient status post thoracentesis left hemithorax with resolved pneumothorax. Possible pneumonia by imaging with patient initiated on Rocephin and Zithromax. Follow-up imaging. (3) Pleural effusion: Status: Chronic Assessment and plan: Associated with chronic ischemic cardiomyopathy and CHF. Status post thoracentesis on the left. Monitor clinically and avoid overhydration with fluids. (4) Chronic obstructive lung disease: Status: Chronic Assessment and plan: Acute exacerbation possible with presenting hypercapnia. IV steroids and respiratory treatments. Qualifiers: COPD type: COPD with acute lower respiratory infection Qualified Code(s): J44.0 - Chronic obstructive pulmonary disease with (acute) lower respiratory infection (5) Cardiomyopathy: Status: Chronic Assessment and plan: Patient was started on valsartan low-dose which she appears not to be tolerating with hypotension. This will be held with reevaluation of treatment options. Patient does have recurrent pleural effusions associated with this problem. Cardiology consultation as an outpatient. Qualifiers: Cardiomyopathy type: ischemic Qualified Code(s): I25.5 - Ischemic cardiomyopathy (6) Elevated troponin level not due to acute coronary syndrome: Status: Chronic Assessment and plan: Troponin elevated but decreased from previous measurements overall. Trend troponins and follow-up clinically. History of Present Illness History of Present Illness Chief Complaint: Altered mental status Narrative: This is a 75-year-old male patient who recently was hospitalized with atypical chest pain and received thoracentesis for bilateral pleural effusions more on the left and resulting small pneumothorax with resolved prior to discharge. He presented with increasing confusion and was found to have an elevated PCO2. He does have a history of COPD with minimal tobacco exposure and ischemic cardiomyopathy with bilateral pleural effusions on home O2 with a history of chronically elevated troponins and atrial flutter which was a rhythm he manifested in the ED converted to sinus rhythm once transported to the ICU. His mentation cleared with BiPAP and then patient was refusing BiPAP treatment. He also had gentle IV hydration and had losartan ordered but held after reviewing that this was a new medication for him for CHF and may have been causing some hypotension at home. The patient denied any chest pain or shortness of breath at rest at the time of my exam. Patient was just discharged from his previous hospitalization the day of readmission. During that admission before discharge the patient felt better after his thoracentesis and had normal mentation. He denies any drug use or alcohol use. He was brought to the ED by his friend. The patient did have confusion and slight dizziness which has resolved since brought to the ICU. Patient is in his usual mentation at the time my exam with some easy agitation, refuses to wear a mask thinking that COVID-19 virus is a hoax and short with answers. He at times does smile and engage in conversation when not controversial topic. Review of Systems Narrative: 13 point review of systems otherwise unrevealing or stable. [facility] Medical History Acute myocardial infarction 2012 STEMI Anxiety Asthma BPH (benign prostatic hyperplasia) CAD S/P percutaneous coronary angioplasty Cardiomyopathy CHF (congestive heart failure) Chronic obstructive lung disease Elevated LFTs Elevated troponin History of tobacco use HTN (hypertension) Hx of atrial flutter a/w STEMI in 2012; single episode Hx of tongue cancer 2004; s/p chemo and XRT Hyperlipemia Left knee pain Occlusion of right vertebral artery Oxygen dependent 2L NC Palliative care patient Pleural effusion, left Psoriasis Pulmonary hypertension Right carotid artery occlusion Surgical History Colonoscopy - MAC (04/03/16) Coronary Stent 2012 EGD - MAC History of total right hip arthroplasty S/P TURP tracheostomy Family History Mother Chronic congestive heart failure Father Personal history of malignant neoplasm Lung Cancer Social History Smoking/Tobacco Use Status: Former Tobacco Use Smoking risk assessment performed?: Yes Alcohol Intake: former Drug use: Never Substance use type: does not use, former substance user Date of last use: 30 years and crack/cocaine Details: No ETOH since 1987. States he does use CBD oil and may have drank some today. 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 Meds Allergies and Home Medications Allergies Allergy/AdvReac Type Severity Reaction Status Date / Time carvedilol Allergy Unverified 07/15/20 22:19 Home Medications Medication Instructions Recorded Confirmed Type B-Complex Plus Vit C (calcium) 1 ea PO DAILY 07/11/12 07/15/20 History Sheldon-Mag 1 ea PO DAILY 04/02/16 07/15/20 History Fish Oil 1 ea PO DAILY 04/02/16 07/12/20 History albuterol sulfate [ProAir HFA] 2 puff INHALATION Q4H PRN PRN 04/02/16 07/15/20 History cholecalciferol (vitamin D3) 5,000 unit PO DAILY 04/02/16 07/15/20 History [Vitamin D3] coenzyme [id number] E 1 ea PO DAILY 04/02/16 07/15/20 History multivitamin [Multi-Day] 2 ea PO DAILY 04/02/16 07/15/20 History vitamin E 400 unit PO DAILY 04/02/16 07/15/20 History acetaminophen [Mapap Extra 500 mg PO PRN PRN 04/03/16 07/15/20 History Strength] oregano oil mg PO 10/19/19 05/19/20 History cannabidiol 600 mg PO DAILY 01/13/20 07/15/20 History metoprolol succinate 50 mg PO DAILY 03/04/20 07/15/20 History guaifenesin [Mucinex] 600 mg PO BID #14 tab 07/12/20 07/15/20 Rx sertraline 25 mg PO HS #30 tab 07/15/20 07/15/20 Rx valsartan 20 mg PO HS #30 tab 07/15/20 07/15/20 Rx Exam Narrative Exam Narrative: General: Patient appears appropriate for age, alert and oriented x3 and in no acute distress. Patient was previously confused in the ED. HEENT: Normocephalic, eyes with pupils equal and reactive to light symmetrically, extraocular movement intact and sclera anicteric. Oropharynx with moist mucosa and fair dentition. Neck: Supple without JVD. Lungs: Bronchovesicular breath sounds diffusely with fair aeration except at bases more the left than right. Inspiratory coarse crackles left base. No rhonchi and no expiratory wheeze. Normal expiratory phase. Back: Normal posture with no CVA tenderness. Heart: Regular rate and rhythm with 3/6 holosystolic murmur apex and no gallops. monitor tech reveals sinus rhythm and earlier did show atrial flutter. Abdomen: Scaphoid contour, soft and nontender to palpation with no palpable hepatosplenomegaly. Genitalia/rectal: Exam deferred. Extremities: Without clubbing, cyanosis or edema. Joints have fair range of motion. Left ankle without tenderness but decreased range of motion. Peripheral pulses intact. Skin: Well tanned, normal color otherwise with normal turgor. Warm and dry. Neuro: Cranial nerves II through XII gross intact, no focalizing motor deficits. Psych: Easily agitated but normal affect and mood. Patient has less rumination over the details of his history and continues to have an element of denial for coping with his multiple medical problems and recurrent issues recently. No abnormal thought process. Remote and recent memory intact. Results Imaging Imaging Studies: Exam: CT Head Without Contrast Exam date and time: 07/15/2020 10:54 PM Age: 75 years old Clinical indication: Altered mental status/memory loss; Other: Not specified TECHNIQUE: Imaging protocol: Computed tomography of the head without contrast. Radiation optimization: All CT scans at this facility use at least one of these dose optimization techniques: automated exposure control; mA and/or kV adjustment per patient size (includes targeted exams where dose is matched to clinical indication); or iterative reconstruction. COMPARISON: No relevant prior studies available. FINDINGS: Brain: Old right temporoparietal infarct. No hemorrhage. Unremarkable white matter. No mass effect. Cerebral ventricles: No ventriculomegaly. Bones/joints: Unremarkable. No acute fracture. Paranasal sinuses: Visualized sinuses are unremarkable. No fluid levels. Mastoid air cells: Visualized mastoid air cells are well aerated. Soft tissues: Unremarkable. IMPRESSION: No acute intracranial abnormality. Exam: XR Chest Exam date and time: 07/15/2020 10:50 PM Age: 75 years old Clinical indication: Condition or disease; Patient HX: Recent pleural effusion and ptx TECHNIQUE: Imaging protocol: XR of the chest. Views: 2 views. COMPARISON: CR XR CHEST 2V PA LATERAL 07/15/2020 8:32 AM FINDINGS: Lungs: Retrocardiac left lower lobe infiltrate. Pleural spaces: Bilateral pleural effusions. No pneumothorax. Heart/Mediastinum: Cardiomegaly. Vasculature: Vascular calcification. Bones/joints: Severe convex right scoliosis of thoracolumbar spine. IMPRESSION: 1. Bilateral pleural effusions. 2. Left lower lobe parenchymal consolidation. 3. Cardiomegaly. Labs Result diagrams: 07/16/20 06:24 07/16/20 06:24 Labs: Laboratory Results - last 24 hr 07/15/20 07/15/20 07/15/20 21:55 21:55 21:55 WBC RBC Hgb Hct MCV MCH MCHC RDW Plt Count MPV Immature Gran % Neutrophils % Lymphocytes % Monocytes % Eosinophils % Basophils % Nucleated RBC % Absolute Neutrophils Absolute Lymphocytes Absolute Monocytes Absolute Eosinophils Absolute Basophils VBG pH 7.32 VBG pCO2 79 H* VBG pO2 38 VBG HCO3 41 H VBG Total CO2 37 H VBG O2 Saturation 67 VBG Base Excess 15 H Sodium Potassium Chloride Carbon Dioxide Anion Gap BUN Creatinine Estimated GFR/1.73 m2 Glucose Calcium Magnesium Total Bilirubin AST ALT Alkaline Phosphatase Ammonia 22 Troponin I NT-Pro-B Natriuret Pep Total Protein Albumin Ethyl Alcohol < 3.0 COVID-19 Source 07/15/20 07/15/20 07/15/20 21:55 21:55 21:55 WBC 7.31 RBC 4.51 Hgb 14.3 Hct 45.4 MCV 100.7 H MCH 31.7 MCHC 31.5 L RDW 12.7 Plt Count 174 MPV 9.1 Immature Gran % 0.3 Neutrophils % 87.2 Lymphocytes % 4.5 Monocytes % 7.0 Eosinophils % 0.7 Basophils % 0.3 Nucleated RBC % 0 Absolute Neutrophils 6.38 Absolute Lymphocytes 0.33 L Absolute Monocytes 0.51 Absolute Eosinophils 0.05 Absolute Basophils 0.02 VBG pH VBG pCO2 VBG pO2 VBG HCO3 VBG Total CO2 VBG O2 Saturation VBG Base Excess Sodium 138 Potassium 4.6 Chloride 97 L Carbon Dioxide 40.1 H Anion Gap 0.9 L BUN 29 H Creatinine 1.6 H Estimated GFR/1.73 m2 42.46 Glucose 142 H Calcium 9.3 Magnesium 1.9 Total Bilirubin 0.6 AST 26 ALT 38 Alkaline Phosphatase 63 Ammonia Troponin I 0.14 H* NT-Pro-B Natriuret Pep 1517 H Total Protein 7.3 Albumin 3.2 L Ethyl Alcohol COVID-19 Source 07/15/20 23:20 WBC RBC Hgb Hct MCV MCH MCHC RDW Plt Count MPV Immature Gran % Neutrophils % Lymphocytes % Monocytes % Eosinophils % Basophils % Nucleated RBC % Absolute Neutrophils Absolute Lymphocytes Absolute Monocytes Absolute Eosinophils Absolute Basophils VBG pH VBG pCO2 VBG pO2 VBG HCO3 VBG Total CO2 VBG O2 Saturation VBG Base Excess Sodium Potassium Chloride Carbon Dioxide Anion Gap BUN Creatinine Estimated GFR/1.73 m2 Glucose Calcium Magnesium Total Bilirubin AST ALT Alkaline Phosphatase Ammonia Troponin I NT-Pro-B Natriuret Pep Total Protein Albumin Ethyl Alcohol COVID-19 Source Nasal/nares Last Vital Signs Temp 36.7 C 07/15/20 21:38 Pulse 87 07/15/20 22:30 Resp 16 07/15/20 22:31 BP 103/59 L 07/15/20 22:30 Pulse Ox 98 07/15/20 22:31 COVID-19 Screening Have you, or household traveled for leisure in last 14 days?: No Had IN PERSON contact w/suspected or confirmed C-19 person: No
[2020-07-15] MEDS: cefTRIAXone 1 GM/50 ML BAG IVPB (23:50)
[2020-07-16] VITALS (61 sets, daily range): BP systolic 81–125; BP diastolic 49–72; PULSE 59–85; RESP 8–23; TEMP 36.4–36.6; O2SAT 95–100
[2020-07-16] MEDS: methylPREDNISolone SUCC 40 MG VIAL IVP (00:39)
[2020-07-16] MEDS: AZITHROMYCIN 500 MG in Normal Saline 250 ML 250 MG IVPB (00:44)
[2020-07-16 02:27] LABS: Troponin I 0.15 ng/mL (<0.06)
[2020-07-16] MEDS: DEXTROSE 5%-LACTATED RINGERS 1,000 ML 80 ML IV (02:41)
[2020-07-16 07:29] LABS: Abs Immature Grans 0.02 10^3/uL (0.0-0.06); Absolute Eosinophil Count 0.01 10^3/uL (0.0-0.7); Absolute Lymphocyte Count 0.27 10^3/uL (1.2-3.4); Absolute Monocyte Count 0.07 10^3/uL (0.1-0.8); Absolute Neutrophil Count 5.21 10^3/uL (1.2-6.7); Eosinophils % 0.2; HCT 45.2 % (40.0-50.0); HGB 14.1 g/dL (13.5-17.5); Immature Grans % 0.4; Lymphocytes % 4.8; MCH 31.3 pg (27.0-33.0); MCHC 31.2 % (32.0-36.0); MCV 100.4 fL (80-95); Monocytes % 1.3; Neutrophils % 93.3; Nucleated RBC 0 %; Platelet Count 180 10^3/uL (130-400); RDW 12.7 % (11.8-14.1); RDW-SD 47.9 fL; WBC 5.58 10^3/uL (4.4-10.8)
--- NOTE | 2020-07-16 07:29 | INITIAL_ITS ---
- If Service Date Differs Date of service: 07/16/20 Time of Service: 07:29 Care Management Initial Assess REASON FOR HOSPITALIZATION:: Acute respiratory failure iwth hypercarbia, Pneumonia PAST MEDICAL HISTORY/PAST SURGICAL HISTORY:: Medical History. Acute myocardial infarction. 2012 STEMI. Anxiety. Asthma. BPH (benign prostatic hyperplasia). CAD S/P percutaneous coronary angioplasty. Cardiomyopathy. CHF (congestive heart failure). Chronic obstructive lung disease. Elevated LFTs. Elevated troponin. History of tobacco use. HTN (hypertension). Hx of atrial flutter. a/w STEMI in 2012; single episode. Hx of tongue cancer. 2004; s/p chemo and XRT. Hyperlipemia. Left knee pain. Occlusion of right vertebral artery. Oxygen dependent. 2L NC. Pleural effusion, left. Psoriasis. Pulmonary hypertension. Right carotid artery occlusion. Surgical History. Colonoscopy - MAC (04/03/16). Coronary Stent. 2012. EGD - MAC. History of total right hip arthroplasty. S/P TURP. tracheostomy PREVIOUS FUNCTIONAL STATUS/SOCIAL/FAMILY SUPPORTS:: Gustavo resides alone with his dog in a single family home in [place]. It is on 2 levels and he accesses both levels on a frequent basis. 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 Gustavo is independent with ADLs , driving etc. He has 2 children that are estranged. He has one close friend and a good neighbor next door for support. CURRENT FUNCTIONAL STATUS:: Gustavo is in the ICU at this time. He was re-admitted hours after discharging yesterday. MD reports he is at his respiratory baseline today. CM continues to follow. ADVANCE DIRECTIVES:: None on file, patient participated in Palliative Consult last admission-did not want to complete COLST or change status at that time. States Irma, his sister would be his agent. Has patient been provided with info about the portal/API?: Yes Did the patient sign up for the portal?: No CODE STATUS:: Full Code (Patient states he does not want extensive work ups; CODE status to be discussed outpatient with PC.) INSURANCE COVERAGE / FINANCIAL ISSUES:: [employer] CURRENT HOME/COMMUNITY SERVICES/EQUIPMENT:: [facility] PRIMARY CARE PHYSICIAN:: Zeina Lizama POTENTIAL DISCHARGE NEEDS:: Palliative consult, COLST or AD, follow up appointments, evaluation for further needs upon discharge. PATIENT/FAMILY EDUCATION NEEDS:: Review of discharge instructions, discuss Ask Me Three. ANTICIPATED BARRIERS TO DISCHARGE:: None identified. TRANSPORTATION:: Via private vehicle by family. PLAN:: Anticipate Gustavo will return home when medically cleared. He will be driven home via private vehicle by family. He will follow up with his PCP and discharge plan of care. CM will continue to follow. Readmission - Within the Past 30 Days Yes or No: Y - Date of First Admission Date of 1st Admission: 07/14/20 - Date of this Admission Date of Admission: 07/15/20 This admission was: Through ED - Assessment for Readmission Summary of readmission circumstances, based upon interviews: Acute respiratory failure with hypercapnia, Consolidation of left lower lobe of lung, Pleural effusion, weak-noted to be unable to transfer independently at this time, presented with AMS. Discharged from [facility] and was home for a few hours prior to returning to [facility] ED.
[2020-07-16 07:48] LABS: BE (Venous) 13 mmol/L (-2-3); HCO3 (Venous) 39 mmol/L (23-28); O2 Sat (Venous) 83 %; TCO2 (Venous) 35 mmol/L (24-29); pH (Venous) 7.35 (7.31-7.41); pO2 (Venous) 50 mmHg
[2020-07-16 07:52] LABS: pCO2 (Venous) 70 mmHg (41-51)
[2020-07-16 07:53] LABS: ALT 39 U/L (16-63); AST 25 U/L (15-37); Albumin 3.1 g/dL (3.4-5.0); Alkaline Phosphatase 64 U/L (46-116); Anion Gap 1.4 mmol/L (3-11); BUN 30 mg/dL (7-18); Bilirubin, Total 0.6 mg/dL (0.2-1.0); CO2 38.6 mmol/L (21.0-32.0); CREATININE 1.4 mg/dL (0.70-1.30); Calcium 9.3 mg/dL (8.5-10.1); Chloride 97 mmol/L (98-107); Estimated GFR 49.54 (mL/min/1.73m2); Glucose 157 mg/dL (74-106); Potassium 5.3 mmol/L (3.5-5.1); Sodium 137 mmol/L (136-145); Total Protein 7.2 g/dL (6.4-8.2)
[2020-07-16 07:58] LABS: Troponin I 0.15 ng/mL (<0.06)
[2020-07-16 08:08] LABS: Prothrombin Time 9.6 sec (9.3-11.0)
[2020-07-16 08:40] LABS: TSH (W/Ref FT4) 1.42 uIU/mL (0.36-3.74)
[2020-07-16] MEDS: Albuterol HFA 8 GM 60 PUFF INH IH (10:00)
[2020-07-16 11:00] LABS: COVID-19 PCR Negative (Negative)
[2020-07-16 12:25] LABS: Procalcitonin 0.1 ng/mL
[2020-07-16 13:59] LABS: Troponin I 0.16 ng/mL (<0.06)
--- NOTE | 2020-07-16 13:59 | PGE_ITS ---
Date of Service Date of service: 07/16/20 Time of Service: 13:59 Assessment and Plan Assessment and plan (1) Acute respiratory failure with hypercapnia: Status: Acute Assessment and plan: Likely a combination of factors; hypotension from recently initiated Losartan, COPD, likely sleep apnea; intolerant of CPAP (claustrophobic). Now back to his baseline 2L supplemental O2 per NC with O2 sats in the upper 90's. He states his ease of breathing is not back to baseline. (2) Consolidation of left lower lobe of lung: Status: Acute Assessment and plan: S/P thoracentesis on 07/15/20. Question of PNA on CXR but likely is atelectasis in the area of the previous effusion. WBC count and procalcitonin are normal. (3) Chronic obstructive lung disease: Status: Chronic Assessment and plan: Myself and respiratory therapist spent time discussing COPD and his use of albuterol MDI. He uses the albuterol essentially on a scheduled manor. He is not on a controlling medication. He is agreeable to starting Symbicort. Changing his rescue medication to xopenex to see if this has a positive impact on his anxiety. He is opposed to oral or IV steroids so methyprednisonone stopped. Qualifiers: COPD type: COPD with acute lower respiratory infection Qualified Code(s): J44.0 - Chronic obstructive pulmonary disease with (acute) lower respiratory infection (4) Cardiomyopathy: Status: Chronic Assessment and plan: Cont his BB. If BP doesn't support the current dose will decrease dosage. Monitor Qualifiers: Cardiomyopathy type: ischemic Qualified Code(s): I25.5 - Ischemic cardiomyopathy (5) Elevated troponin level not due to acute coronary syndrome: Status: Chronic Assessment and plan: Chronically elevated; related to his cardiomyopathy. No angina. (6) Anxiety: Status: Chronic Assessment and plan: Will see if he is agreeable to prn atarax. (7) HTN (hypertension): Status: Chronic Assessment and plan: Has had low pressure readings during this admission. Losartan, started at recent admission, has been stopped. Cont BB and adjust dose as necessary. Subjective Subjective Patient reports: no new complaints, tolerating a regular diet, shortness of breath and afebrile; denies diarrhea, nausea and vomiting Interval history since last seen: Pt states he is bothered by the alarms and noises of the ICU. States albuterol causes him to feel jittery, but uses it reguarly at home; uses his albuterol MDI Q4H in an essentially scheduled manor. Exam Const General: cooperative and no acute distress Nutritional Appearance: average body habitus Orientation: alert and oriented x3 Eyes Sclera: sclerae normal Pupils: PERRL Resp Effort & Inspection: normal respiratory effort Auscultation: rales on the left at the base (faint) Cardio Rate: regular rate Rhythm: regular rhythm Heart Sounds: S1 normal and S2 normal GI Palpation: soft and nontender Neuro General: no focal motor deficits Speech: speech normal Extrem General: no pedal edema and no calf tenderness Psych Appearance: grossly normal Speech and Movement: speech and movement normal Affect: anxious affect Objective Last Vital Signs Temp 36.4 C L 07/16/20 08:00 Pulse 67 07/16/20 08:24 Resp 16 07/16/20 07:01 BP 107/61 07/16/20 07:01 Pulse Ox 99 07/16/20 07:01 Laboratory Results - last 24 hr 07/15/20 07/15/20 07/15/20 21:55 21:55 21:55 WBC RBC Hgb Hct MCV MCH MCHC RDW Plt Count MPV Immature Gran % Neutrophils % Lymphocytes % Monocytes % Eosinophils % Basophils % Nucleated RBC % Absolute Neutrophils Absolute Lymphocytes Absolute Monocytes Absolute Eosinophils Absolute Basophils PT INR VBG pH 7.32 VBG pCO2 79 H* VBG pO2 38 VBG HCO3 41 H VBG Total CO2 37 H VBG O2 Saturation 67 VBG Base Excess 15 H Sodium Potassium Chloride Carbon Dioxide Anion Gap BUN Creatinine Estimated GFR/1.73 m2 Glucose Calcium Magnesium Total Bilirubin AST ALT Alkaline Phosphatase Ammonia 22 Troponin I NT-Pro-B Natriuret Pep Total Protein Albumin Procalcitonin TSH Urine Color Urine Clarity Urine pH Ur Specific [place] Urine Protein Urine Ketones Urine Blood Urine Nitrite Urine Bilirubin Urine Urobilinogen Ur Leukocyte Esterase Urine Glucose Urine Opiates Screen Urine Methadone Screen Ur Barbiturates Screen Ur Tricyclics Screen Ur Amphetamines Screen U Benzodiazepines Scrn Urine Cocaine Screen Ur THC Screen Ethyl Alcohol < 3.0 COVID-19 Source SARS-CoV-2 (PCR) 07/15/20 07/15/20 07/15/20 21:55 21:55 21:55 WBC 7.31 RBC 4.51 Hgb 14.3 Hct 45.4 MCV 100.7 H MCH 31.7 MCHC 31.5 L RDW 12.7 Plt Count 174 MPV 9.1 Immature Gran % 0.3 Neutrophils % 87.2 Lymphocytes % 4.5 Monocytes % 7.0 Eosinophils % 0.7 Basophils % 0.3 Nucleated RBC % 0 Absolute Neutrophils 6.38 Absolute Lymphocytes 0.33 L Absolute Monocytes 0.51 Absolute Eosinophils 0.05 Absolute Basophils 0.02 PT INR VBG pH VBG pCO2 VBG pO2 VBG HCO3 VBG Total CO2 VBG O2 Saturation VBG Base Excess Sodium 138 Potassium 4.6 Chloride 97 L Carbon Dioxide 40.1 H Anion Gap 0.9 L BUN 29 H Creatinine 1.6 H Estimated GFR/1.73 m2 42.46 Glucose 142 H Calcium 9.3 Magnesium 1.9 Total Bilirubin 0.6 AST 26 ALT 38 Alkaline Phosphatase 63 Ammonia Troponin I 0.14 H* NT-Pro-B Natriuret Pep 1517 H Total Protein 7.3 Albumin 3.2 L Procalcitonin TSH Urine Color Urine Clarity Urine pH Ur Specific [place] Urine Protein Urine Ketones Urine Blood Urine Nitrite Urine Bilirubin Urine Urobilinogen Ur Leukocyte Esterase Urine Glucose Urine Opiates Screen Urine Methadone Screen Ur Barbiturates Screen Ur Tricyclics Screen Ur Amphetamines Screen U Benzodiazepines Scrn Urine Cocaine Screen Ur THC Screen Ethyl Alcohol COVID-19 Source SARS-CoV-2 (PCR) 07/15/20 07/15/20 07/15/20 22:14 22:14 23:20 WBC RBC Hgb Hct MCV MCH MCHC RDW Plt Count MPV Immature Gran % Neutrophils % Lymphocytes % Monocytes % Eosinophils % Basophils % Nucleated RBC % Absolute Neutrophils Absolute Lymphocytes Absolute Monocytes Absolute Eosinophils Absolute Basophils PT INR VBG pH VBG pCO2 VBG pO2 VBG HCO3 VBG Total CO2 VBG O2 Saturation VBG Base Excess Sodium Potassium Chloride Carbon Dioxide Anion Gap BUN Creatinine Estimated GFR/1.73 m2 Glucose Calcium Magnesium Total Bilirubin AST ALT Alkaline Phosphatase Ammonia Troponin I NT-Pro-B Natriuret Pep Total Protein Albumin Procalcitonin TSH Urine Color Cancelled Urine Clarity Cancelled Urine pH Cancelled Ur Specific [place] Cancelled Urine Protein Cancelled Urine Ketones Cancelled Urine Blood Cancelled Urine Nitrite Cancelled Urine Bilirubin Cancelled Urine Urobilinogen Cancelled Ur Leukocyte Esterase Cancelled Urine Glucose Cancelled Urine Opiates Screen Cancelled Urine Methadone Screen Cancelled Ur Barbiturates Screen Cancelled Ur Tricyclics Screen Cancelled Ur Amphetamines Screen Cancelled U Benzodiazepines Scrn Cancelled Urine Cocaine Screen Cancelled Ur THC Screen Cancelled Ethyl Alcohol COVID-19 Source Nasal/nares SARS-CoV-2 (PCR) Negative 07/16/20 07/16/20 07/16/20 02:00 06:24 06:24 WBC RBC Hgb Hct MCV MCH MCHC RDW Plt Count MPV Immature Gran % Neutrophils % Lymphocytes % Monocytes % Eosinophils % Basophils % Nucleated RBC % Absolute Neutrophils Absolute Lymphocytes Absolute Monocytes Absolute Eosinophils Absolute Basophils PT 9.6 INR 1.0 VBG pH VBG pCO2 VBG pO2 VBG HCO3 VBG Total CO2 VBG O2 Saturation VBG Base Excess Sodium Potassium Chloride Carbon Dioxide Anion Gap BUN Creatinine Estimated GFR/1.73 m2 Glucose Calcium Magnesium Total Bilirubin AST ALT Alkaline Phosphatase Ammonia Troponin I 0.15 H* NT-Pro-B Natriuret Pep Total Protein Albumin Procalcitonin TSH 1.42 Urine Color Urine Clarity Urine pH Ur Specific [place] Urine Protein Urine Ketones Urine Blood Urine Nitrite Urine Bilirubin Urine Urobilinogen Ur Leukocyte Esterase Urine Glucose Urine Opiates Screen Urine Methadone Screen Ur Barbiturates Screen Ur Tricyclics Screen Ur Amphetamines Screen U Benzodiazepines Scrn Urine Cocaine Screen Ur THC Screen Ethyl Alcohol COVID-19 Source SARS-CoV-2 (PCR) 07/16/20 07/16/20 07/16/20 06:24 06:24 06:24 WBC 5.58 RBC 4.50 Hgb 14.1 Hct 45.2 MCV 100.4 H MCH 31.3 MCHC 31.2 L RDW 12.7 Plt Count 180 MPV 10.0 Immature Gran % 0.4 Neutrophils % 93.3 Lymphocytes % 4.8 Monocytes % 1.3 Eosinophils % 0.2 Basophils % 0.0 Nucleated RBC % 0 Absolute Neutrophils 5.21 Absolute Lymphocytes 0.27 L Absolute Monocytes 0.07 L Absolute Eosinophils 0.01 Absolute Basophils 0.00 PT INR VBG pH VBG pCO2 VBG pO2 VBG HCO3 VBG Total CO2 VBG O2 Saturation VBG Base Excess Sodium 137 Potassium 5.3 H Chloride 97 L Carbon Dioxide 38.6 H Anion Gap 1.4 L BUN 30 H Creatinine 1.4 H Estimated GFR/1.73 m2 49.54 Glucose 157 H Calcium 9.3 Magnesium Total Bilirubin 0.6 AST 25 ALT 39 Alkaline Phosphatase 64 Ammonia Troponin I 0.15 H* NT-Pro-B Natriuret Pep Total Protein 7.2 Albumin 3.1 L Procalcitonin 0.1 TSH Urine Color Urine Clarity Urine pH Ur Specific [place] Urine Protein Urine Ketones Urine Blood Urine Nitrite Urine Bilirubin Urine Urobilinogen Ur Leukocyte Esterase Urine Glucose Urine Opiates Screen Urine Methadone Screen Ur Barbiturates Screen Ur Tricyclics Screen Ur Amphetamines Screen U Benzodiazepines Scrn Urine Cocaine Screen Ur THC Screen Ethyl Alcohol COVID-19 Source SARS-CoV-2 (PCR) 07/16/20 07:42 WBC RBC Hgb Hct MCV MCH MCHC RDW Plt Count MPV Immature Gran % Neutrophils % Lymphocytes % Monocytes % Eosinophils % Basophils % Nucleated RBC % Absolute Neutrophils Absolute Lymphocytes Absolute Monocytes Absolute Eosinophils Absolute Basophils PT INR VBG pH 7.35 VBG pCO2 70 H* VBG pO2 50 VBG HCO3 39 H VBG Total CO2 35 H VBG O2 Saturation 83 VBG Base Excess 13 H Sodium Potassium Chloride Carbon Dioxide Anion Gap BUN Creatinine Estimated GFR/1.73 m2 Glucose Calcium Magnesium Total Bilirubin AST ALT Alkaline Phosphatase Ammonia Troponin I NT-Pro-B Natriuret Pep Total Protein Albumin Procalcitonin TSH Urine Color Urine Clarity Urine pH Ur Specific [place] Urine Protein Urine Ketones Urine Blood Urine Nitrite Urine Bilirubin Urine Urobilinogen Ur Leukocyte Esterase Urine Glucose Urine Opiates Screen Urine Methadone Screen Ur Barbiturates Screen Ur Tricyclics Screen Ur Amphetamines Screen U Benzodiazepines Scrn Urine Cocaine Screen Ur THC Screen Ethyl Alcohol COVID-19 Source SARS-CoV-2 (PCR)
[2020-07-16] MEDS: Levalbuterol 0.63 MG/3 ML UPD VIAL UPD ×2 (14:15→19:51)
[2020-07-16 16:56] LABS: Bilirubin Negative (Negative); Blood Negative (Negative); Clarity Clear (Clear); Glucose Negative (Negative); Ketones Negative (Negative); Leukocyte Esterase Negative (Negative); Nitrite Negative (Negative); Urobilinogen 0.2 EU/dL (Up TO 0.2); pH 5.5 (5-8)
[2020-07-16 17:06] LABS: *AMPHETAMINES SCREEN URINE Negative (Negative); *BARBITURATES SCREEN URINE Negative (Negative); *BENZODIAZEPINES SCREEN URINE Negative (Negative); Cannabinoids THC Negative (Negative); Cocaine Screen,Urine Negative (Negative); METHADONE URINE SCREEN Negative (Negative); OPIATES URINE SCREEN Negative (Negative)
[2020-07-16 17:11] LABS: Tricyclic Antidepressants Negative (Negative)
[2020-07-16] MEDS: Budesonide/Formoterol 160/4.5 6 GM 60 PUFF INH IH (19:13)
--- NOTE | 2020-07-16 19:13 | RESPIRATORY ---
07/16/2020-Discussed a Respiratory regimen for this Pt with Dr. Godinez. Pt states he gets jittery & palpitations from Albuterol UPD's & MDI's that he uses for SOB and tightness in his chest. Given that the Pt is anxious at baseline it was agreed upon with Dr. Godinez and myself to start him on an inhaled combination inhaled corticosteroid and long-acting beta2-agonist along with a short acting beta2-agonist bronchodilator for PRN use. Pt states he lives alone and his SOB is overwhelming and new to him. Frequent bedside Edu and reassurance conversations were had throughout the day. A visual regimented schedule was prepared and laminated for him for cues at home. Pt was very appreciative and receptive to this.
[2020-07-16] MEDS: Metoprolol 25 MG TAB PO (19:51)
[2020-07-16] MEDS: LORazepam 0.5 MG TAB PO (22:12)
[2020-07-16] MEDS: Sertraline 25 MG TAB PO (22:12)
[2020-07-16] MEDS: cefTRIAXone 1 GM/50 ML BAG IVPB (23:21)
[2020-07-17] MEDS: AZITHROMYCIN 500 MG in Normal Saline 250 ML 250 MG IVPB
[2020-07-17 03:29] VITALS: BP 125/80; PULSE 68; RESP 16; TEMP 36.5; O2SAT 98
[2020-07-17 06:58] LABS: HCT 41.5 % (40.0-50.0); HGB 13.1 g/dL (13.5-17.5); MCH 31.3 pg (27.0-33.0); MCHC 31.6 % (32.0-36.0); MCV 99.3 fL (80-95); MPV 9.6 fL (8.0-11.0); Platelet Count 172 10^3/uL (130-400); RBC 4.18 10^6/uL (4.36-5.78); RDW 12.9 % (11.8-14.1); RDW-SD 47.3 fL; WBC 5.73 10^3/uL (4.4-10.8)
[2020-07-17 07:06] VITALS: PULSE 83
[2020-07-17 07:08] LABS: Anion Gap 1.4 mmol/L (3-11); BUN 25 mg/dL (7-18); CO2 37.6 mmol/L (21.0-32.0); Calcium 9.1 mg/dL (8.5-10.1); Chloride 101 mmol/L (98-107); Glucose 94 mg/dL (74-106); Potassium 4.7 mmol/L (3.5-5.1); Sodium 140 mmol/L (136-145)
[2020-07-17] MEDS: Budesonide/Formoterol 160/4.5 6 GM 60 PUFF INH IH (07:56)
[2020-07-17] MEDS: Normal Saline Flush 10 ML SYR IVP (08:11)
[2020-07-17] MEDS: Metoprolol 25 MG TAB PO (08:11)
--- NOTE | 2020-07-17 08:42 | CMDISCH_ITS ---
LACE Index Scoring Tool - Questions: Length of Stay (in days): 2 Acuity (Admit via E.D.?): Yes Comorbidities: Congestive Heart Failure E.D. Visits: 6 - Answers: Total Score: 11 Risk of Readmission: High Risk Care Management Discharge Reason for Hospitalization: Acute respiratory failure iwth hypercarbia, Pneumonia Discharge Plan: Gustavo will return home when ready per MD. He will have new orders for [facility] RN/[employer] to support medication management and to explore avenues for emotional regulation-anxiety and service attachment. Gustavo's neighbor and support person is unavailable so Gustavo will transport via [facility]. Zopenex inhaler to be provided for discharge as well as new prescriptions per MD. Patient/Family Education Needs: Review discharge instructions, discuss Ask Me Three. Services Needed at Discharge: Home Health Care Services (RN/[employer] MACHINE T[employer])
[2020-07-17] MEDS: LORazepam 0.5 MG TAB PO (09:43)
[2020-07-17 10:29] VITALS: PULSE 66
--- NOTE | 2020-07-17 13:28 | W.PM.DS.N ---
Date of service: 07/17/20 Time of Service: 13:33 DS: Diagnosis Discharge Diagnosis (1) Acute respiratory failure with hypercapnia: Status: Acute (2) Consolidation of left lower lobe of lung: Status: Acute (3) Chronic obstructive lung disease: Status: Chronic (4) Cardiomyopathy: Status: Chronic (5) Elevated troponin level not due to acute coronary syndrome: Status: Chronic (6) Anxiety: Status: Chronic (7) HTN (hypertension): Status: Chronic Discharge Plan Disposition Patient Disposition: HOME W/HOME HEALTH SERVICE Condition: Improving Discharge Details Reason For Visit: ACUTE RESPIRATORY FAILURE WITH HYPERCARBIA,PNEUMON Admit Date/Time: 07/15/20 23:34 Admit Provider: Barrera Cisse Attending Provider: Barrera Cisse Primary Care Provider: Magalie Sanchez Hospital Course Hospital Course: This is a 75-year-old male patient who recently was hospitalized with atypical chest pain and received thoracentesis for bilateral pleural effusions more on the left and resulting small pneumothorax with resolved prior to discharge. He presented with increasing confusion and was found to have an elevated PCO2. He does have a history of COPD with minimal tobacco exposure and ischemic cardiomyopathy with bilateral pleural effusions on home O2 with a history of chronically elevated troponins and atrial flutter which was a rhythm he manifested in the ED converted to sinus rhythm once transported to the ICU. His mentation cleared with BiPAP and then patient was refusing BiPAP treatment. He also had gentle IV hydration and had losartan ordered but held after reviewing that this was a new medication for him for CHF and may have been causing some hypotension at home. The patient denied any chest pain or shortness of breath at rest at the time of my exam. Patient was just discharged from his previous hospitalization the day of readmission. During that admission before discharge the patient felt better after his thoracentesis and had normal mentation. He denies any drug use or alcohol use. He was brought to the ED by his friend. The patient did have confusion and slight dizziness which has resolved since brought to the ICU. Patient is in his usual mentation at the time my exam with some easy agitation, refuses to wear a mask thinking that COVID-19 virus is a hoax and short with answers. He at times does smile and engage in conversation when not controversial topic. His losartan was d/c'd and he had no further hypotensive episodes. His WBC count remained normal. Procalcitonin was normal. He had no clinical picture of pneumonia so he will not be sent home on antibiotics. He was initiated on Pulmicort. His albuterol MDI was replaced by Xopenex to reduce his post-treatment anxiety and jitteriness. This was a successful substitution. He required a significant amount of explanation regarding the new Pulmicort medication and the concepts of a controller medication vs a rescue medication. He has instructional information that [facility] produced for him. Follow up with PCP in 1-2 weeks. Home Meds and New Rx's Prescriptions: New budesonide-formoterol [Symbicort] 160-4.5 mcg/actuation Hfa Aerosol Inhaler 2 puff inhalation BID Qty: 10.2 RF: 0 levalbuterol HCl 0.63 mg/3 mL Solution For Nebulization 0.63 mg UPD Q4H PRN PRNQty: 90 RF: 0 levalbuterol tartrate [Xopenex HFA] 45 mcg/actuation Hfa Aerosol Inhaler 2 puff inhalation Q4H PRN PRNQty: 15 RF: 0 Continued B-Complex Plus Vit C (calcium) 1 EACH tablet 1 ea PO DAILY RF: 0 cannabidiol 100 mg/mL Solution 600 mg PO DAILY RF: 0 metoprolol succinate 50 mg tablet extended release 24 hr 50 mg PO DAILY RF: 0 guaifenesin [Mucinex] 600 mg tablet extended release 12hr 600 mg PO BID Qty: 14 RF: 0 multivitamin [Multi-Day] 1 EACH tablet 2 ea PO DAILY RF: 0 vitamin E 400 UNIT capsule 400 unit PO DAILY RF: 0 cholecalciferol (vitamin D3) [Vitamin D3] 1,000 UNIT capsule 5,000 unit PO DAILY RF: 0 Fish Oil 1 EACH capsule 1 ea PO DAILY RF: 0 Sheldon-Mag 1 EACH tablet,chewable 1 ea PO DAILY RF: 0 coenzyme [id number] E 1 EACH capsule 1 ea PO DAILY RF: 0 acetaminophen [Mapap Extra Strength] 500 MG tablet 500 mg PO PRN PRNRF: 0 oregano oil 1,500 mg Capsule PO RF: 0 Discontinued valsartan 40 mg tablet 20 mg PO HS Qty: 30 RF: 0 sertraline 25 mg tablet 25 mg PO HS Qty: 30 RF: 1 albuterol sulfate [ProAir HFA] 200 PUFF HFA aerosol inhaler 2 puff Inhalation Q4H PRN PRNRF: 0 Discharge Instructions Instructions: COPD (Chronic Obstructive Pulmonary Disease) (GEN) Stand Alone Forms: Nursing Discharge Form Referrals: Magalie Sanchez [Primary Care Provider] - (Please call Saturday to make a follow up appointment for 1-2 weeks) Activity:: Activity as Tolerated Equipment/Supplies:: No Equipment Needed Diet:: Low Sodium Discharge Orders Discharge Orders: Discharge Order (Routine); Ordered 07/17/20 Ordered By: Korey Godinez DS: Summary Time Spent with Patient providing and/or coordinating discharge services: Greater than 30 minutes Status at Discharge Functional status at discharge: independent ambulation Overall status at discharge: patient is progressing back to baseline Mental Status: mental status grossly normal Speech and Movement: speech and movement normal Mood: congruent mood Affect: normal affect Exam Psych Mental Status: mental status grossly normal Speech and Movement: speech and movement normal Mood: congruent mood Affect: normal affect DS: Data Vitals/I&O Vitals and I&O: Vital Signs Temperature 36.5 C 07/17/20 03:29 Temperature Source Skin 07/17/20 03:29 Pulse 66 07/17/20 10:29 Pulse Rhythm Regular 07/17/20 09:08 Pulse 85 07/16/20 14:40 Respiratory Rate 16 07/17/20 03:29 Respiratory Effort 07/17/20 09:08 Respiratory Depth Normal 07/17/20 09:08 Respiratory Pattern Normal 07/17/20 09:08 Blood Pressure 125/80 07/17/20 03:29 Blood Pressure Mean 73 07/16/20 07:01 Blood Pressure Position Supine 07/16/20 02:29 Pulse Oximetry 98 07/17/20 03:29 Oxygen Delivery Method Nasal Cannula 07/17/20 03:29 Oxygen Flow Rate 2 07/17/20 03:29 Fraction of Inspired Oxygen (FIO2) 30 07/15/20 23:31 Pain Level 0 07/17/20 03:29 Comment 07/15/20 21:38 Intake & Output 07/16/20 07/17/20 07/17/20 23:59 11:59 23:59 Intake Total 50 / 1788.667 400 / 400 Output Total 375 / 1175 400 / 400 Balance -325 / 613.667 0 / 0 Weight 76.5 kg Intake: IV 50 / 768.667 250 / 250 Oral 150 / 150 Output: Urine 375 / 1175 400 / 400 Other: Urine Color Straw Yellow Urine Appearance Clear Clear Voiding Methods Toilet Urinal Data Completed and Pending Labs on day of discharge: Labs from last 24 hours 07/17/20 07/17/20 07/16/20 06:39 06:39 15:00 WBC 5.73 RBC 4.18 L Hgb 13.1 L Hct 41.5 MCV 99.3 H MCH 31.3 MCHC 31.6 L RDW 12.9 Plt Count 172 MPV 9.6 Sodium 140 Potassium 4.7 Chloride 101 Carbon Dioxide 37.6 H Anion Gap 1.4 L BUN 25 H Creatinine 1.0 Estimated GFR/1.73 m2 >= 60.00 Glucose 94 D Calcium 9.1 Troponin I Urine Color Urine Clarity Urine pH Ur Specific [place] Urine Protein Urine Ketones Urine Blood Urine Nitrite Urine Bilirubin Urine Urobilinogen Ur Leukocyte Esterase Urine Glucose Urine Opiates Screen Negative Urine Methadone Screen Negative Ur Barbiturates Screen Negative Ur Tricyclics Screen Negative Ur Amphetamines Screen Negative U Benzodiazepines Scrn Negative Urine Cocaine Screen Negative Ur THC Screen Negative 07/16/20 07/16/20 15:00 13:00 WBC RBC Hgb Hct MCV MCH MCHC RDW Plt Count MPV Sodium Potassium Chloride Carbon Dioxide Anion Gap BUN Creatinine Estimated GFR/1.73 m2 Glucose Calcium Troponin I 0.16 H* Urine Color Yellow Urine Clarity Clear Urine pH 5.5 Ur Specific [place] 1.020 Urine Protein Negative Urine Ketones Negative Urine Blood Negative Urine Nitrite Negative Urine Bilirubin Negative Urine Urobilinogen 0.2 Ur Leukocyte Esterase Negative Urine Glucose Negative Urine Opiates Screen Urine Methadone Screen Ur Barbiturates Screen Ur Tricyclics Screen Ur Amphetamines Screen U Benzodiazepines Scrn Urine Cocaine Screen Ur THC Screen [facility] Medical History Acute myocardial infarction 2012 STEMI Anxiety Asthma BPH (benign prostatic hyperplasia) CAD S/P percutaneous coronary angioplasty Cardiomyopathy CHF (congestive heart failure) Chronic obstructive lung disease Elevated LFTs Elevated troponin History of tobacco use HTN (hypertension) Hx of atrial flutter a/w STEMI in 2012; single episode Hx of tongue cancer 2004; s/p chemo and XRT Hyperlipemia Left knee pain Occlusion of right vertebral artery Oxygen dependent 2L NC Palliative care patient Pleural effusion, left Psoriasis Pulmonary hypertension Right carotid artery occlusion Surgical History Colonoscopy - [facility] (04/03/16) Coronary Stent 2012 EGD - [facility] History of total right hip arthroplasty S/P TURP tracheostomy Family History Mother Chronic congestive heart failure Father Personal history of malignant neoplasm Lung Cancer Social History Smoking/Tobacco Use Status: Former Tobacco Use Smoking risk assessment performed?: Yes Alcohol Intake: former Drug use: Never Substance use type: does not use, former substance user Date of last use: 30 years and crack/cocaine Details: No ETOH since 1987. States he does use CBD oil and may have drank some today. 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
[2020-07-17] MEDS: Levalbuterol HFA 15 GM INH 2 PUFF IH (14:20)
--- NOTE | 2020-07-17 14:58 | PDOC.HHF2F ---
Home Health Certification Home Health Certification: 1. Encounter Date and Reason I certify that Gustavo Noland Jr was seen by Korey Godinez MD on 07/17/20 and that I had a [id number] encounter with this patient that meets the physician face to face encounter requirements. 2. Clinical Findings Supporting Skilled Need and Homebound Status I certify that home health services are medically necessary, include either intermittent alf and/or physical/speech therapy, and that this patient is homebound in that absences from the home require considerable and taxing effort and are infrequent or of short duration, or are attributable to the need to receive medical care. [X] (a) Attached documentation from encounter provides clinical findings supporting skilled need and homebound status (including what assistance patient requires to leave the home). The encounter with the patient was in whole, or in part, for the following medical condition, which is the primary reason for home health care: ACUTE RESPIRATORY FAILURE WITH HYPERCARBIA,PNEUMON Intermediate: New medication prescribed for his COPD. Monitor appropriate administration and usage. Monitor respiratory status. Physical Therapy: Speech Therapy: SOCIAL WORK: Evaluate his depression and anxiety. Offer community resources that would be appropriate. Homebound: D/T MILNER and genralized fatigue. 3. Certification and Authentication I certify that I composed the above information based on my clinical judgement relating to this patient's medical condition and, if applicable, clinical findings communicated to me by the NPP or inpatient physician who performed the Home Health Referral. All further orders will be obtained through Magalie Sanchez (Community Based Physician - PCP)
--- NOTE | 2020-07-17 15:09 | RESPIRATORY ---
07/17/20: Reviewed PRN Xopenex with spacer with Pt. at bedside along with his Symbicort regimen. Pt requested multiple reviews. Pt states he is nervous about going home and not being able to follow his regimen.
== END 2020-07-17 15:33 | disposition home health service (06) | DRG 190 ==
LOC: ER 07-16 00:18 → ICU 07-16 01:01 → MS 07-16 14:42
PROVIDERS: Family Medicine; Admitting Provider Family Medicine; Emergency Provider Student in an Organized Health Care Education/Training Program; PCP Family Medicine; Visit Provider Family Medicine
DX: J44.1 Chronic obstructive pulmonary disease with (acute) exacerbation (principal); J96.02 Acute respiratory failure with hypercapnia; I48.92 Unspecified atrial flutter; I25.5 Ischemic cardiomyopathy; R41.82 Altered mental status, unspecified; Z99.81 Dependence on supplemental oxygen; I25.2 Old myocardial infarction; N40.0 Benign prostatic hyperplasia without lower urinary tract symptoms; I25.10 Atherosclerotic heart disease of native coronary artery without angina pectoris; Z95.5 Presence of coronary angioplasty implant and graft; R74.8 Abnormal levels of other serum enzymes; Z87.891 Personal history of nicotine dependence; I11.0 Hypertensive heart disease with heart failure; E78.5 Hyperlipidemia, unspecified; Z85.810 Personal history of malignant neoplasm of tongue; L40.9 Psoriasis, unspecified; I27.20 Pulmonary hypertension, unspecified; I65.21 Occlusion and stenosis of right carotid artery; I95.2 Hypotension due to drugs; T46.5X5A Adverse effect of other antihypertensive drugs, initial encounter; G47.30 Sleep apnea, unspecified; F41.9 Anxiety disorder, unspecified; R91.8 Other nonspecific abnormal finding of lung field
CPT/HCPCS: 36415; 36416; 80048; 80053; 80307; 82805; 82962; 84145; 85027; 87635; 93005; 94640; 96365; 99291; 70450; 71046; 80320; 81003; 82140; 83735; 83880; 84443; 84484; 85025; 85610; 93010; 99223; 99233; 99239; J0456; J0696; J1644; J7614

== ENCOUNTER → 2020-07-21 11:26 | Outpatient (BNVA) | payer MEDICARE, MEDICAID, SELFPAY | PROVIDERS: PCP Family Medicine; Referring Provider Family Medicine; Visit Provider Internal Medicine Cardiovascular Disease | DX: I50.23 Acute on chronic systolic (congestive) heart failure (principal); I25.10 Atherosclerotic heart disease of native coronary artery without angina pectoris; Z98.61 Coronary angioplasty status; I12.0 Hypertensive chronic kidney disease with stage 5 chronic kidney disease or end stage renal disease; Z86.79 Personal history of other diseases of the circulatory system; Z79.899 Other long term (current) drug therapy | CPT/HCPCS: 99204; 99215 ==

== ENCOUNTER 2020-07-22 18:08 | Emergency (ER) | payer MEDICARE, MEDICAID, SELFPAY ==
[2020-07-22] VITALS (11 sets, daily range): BP systolic 111–158; BP diastolic 64–90; PULSE 84–89; RESP 14–18; TEMP 37.4; O2SAT 88–97
--- NOTE | 2020-07-22 18:35 | ED.GENADUL_ITS ---
Discharge Plan Disposition Patient Disposition: HOME Condition: Stable Discharge Details Clinical Impression: Anxiety Primary Care Provider: Magalie Sanchez ED Provider: Steffanie Baxter Home Meds and New Rx's Prescriptions: Continued guaifenesin [Mucinex] 600 mg tablet extended release 12hr 600 mg PO BID PRNRF: 0 aspirin [Adult Aspirin Regimen] 81 mg tablet,delayed release (DR/EC) 81 mg PO DAILY RF: 0 furosemide 20 mg tablet 20 mg PO DAILY Qty: 90 RF: 3 spironolactone 25 mg tablet 12.5 mg PO DAILY Qty: 45 RF: 6 B-Complex Plus Vit C (calcium) 1 EACH tablet 1 ea PO DAILY RF: 0 cannabidiol 100 mg/mL Solution 600 mg PO DAILY RF: 0 metoprolol succinate 50 mg tablet extended release 24 hr 50 mg PO DAILY RF: 0 budesonide-formoterol [Symbicort] 160-4.5 mcg/actuation Hfa Aerosol Inhaler 2 puff inhalation BID Qty: 10.2 RF: 0 levalbuterol tartrate [Xopenex HFA] 45 mcg/actuation Hfa Aerosol Inhaler 2 puff inhalation Q4H PRN PRNQty: 15 RF: 0 multivitamin [Multi-Day] 1 EACH tablet 2 ea PO DAILY RF: 0 vitamin E 400 UNIT capsule 400 unit PO DAILY RF: 0 cholecalciferol (vitamin D3) [Vitamin D3] 1,000 UNIT capsule 5,000 unit PO DAILY RF: 0 Fish Oil 1 EACH capsule 1 ea PO DAILY RF: 0 Sheldon-Mag 1 EACH tablet,chewable 1 ea PO DAILY RF: 0 coenzyme [id number] 1 EACH capsule 1 ea PO DAILY RF: 0 acetaminophen [Mapap Extra Strength] 500 MG tablet 500 mg PO PRN PRNRF: 0 Discharge Instructions Instructions: Anxiety (ED) Additional Instructions: Follow up with your PCP in 3-5 days. At this time the mind racing you are feeling is most likely related to your anxiety and/or new steroid inhalers. Return to the ED for any worsening chest pain, SOB, fever, or vomiting. Referrals: Magalie Sanchez [Primary Care Provider] - Medical Decision Making 75 year old male presents to ED via EMS with chief c/o of anxiety and mind racing since being discharged from hospital 5 days ago. He denies and SI or HI. He does appear agitated and easily irritated with questioning. He has been on Symbicort and Xopenex inhalers which he believes may be causing his symptoms. He denies any CP or new physical symptoms. Upon re-evaluation patient is dozing when entering room, VSS, breathing eupneic. 192: Discussed with care management regarding patient ED visit, I requested a palliative care consult and order placed and care management will follow up with palliative care. Plan is to discharge patient home with PCP follow up and follow up with home health and palliative care consult order placed. Patient calling for a ride, is requesting not to wait for ride in room due to the air vent. HPI General Mode of arrival: EMS . Date/Time Provider Initiated Documentation: 07/22/20 18:09 . Limitations to Documentation: no limitations . Information obtained by: patient . HPI Narrative: 75 year old male presents with mind racing Patient states he is ok when he is lying still, but whenever I start thinking about something or get up to move around, my mind starts racing. He does report being anxious. He was discharged from hospital 5 days ago for COPD, CHF exacerbation, and Pulmonary edema. He recently began a new medication of symbicort and Xopenex inhaler which he believes may be causing his symptoms. He did take 0.5 mg of Lorazepam at [facility] [employer].Home health does come to assist patient and has been out twice this week. He denies SI or HI, no c/o chest pain. He is on O2 currently. PMHX includes CHF, COPD, Cardiomyopathy, Oral CA, Atrial Flutter, HTN, BPH, Anxiety. Related Data Home Medications Medication Instructions Recorded Confirmed B-Complex Plus Vit C (calcium) 1 ea PO DAILY 07/11/12 07/22/20 Sheldon-Mag 1 ea PO DAILY 04/02/16 07/22/20 Fish Oil 1 ea PO DAILY 04/02/16 07/22/20 cholecalciferol (vitamin D3) 5,000 unit PO DAILY 04/02/16 07/22/20 [Vitamin D3] coenzyme [id number] 1 ea PO DAILY 04/02/16 07/22/20 multivitamin [Multi-Day] 2 ea PO DAILY 04/02/16 07/22/20 vitamin E 400 unit PO DAILY 04/02/16 07/22/20 acetaminophen [Mapap Extra 500 mg PO PRN PRN 04/03/16 07/22/20 Strength] cannabidiol 600 mg PO DAILY 01/13/20 07/22/20 metoprolol succinate 50 mg PO DAILY 03/04/20 07/22/20 budesonide-formoterol [Symbicort] 2 puff INHALATION BID #10.2 g 07/17/20 07/22/20 levalbuterol tartrate [Xopenex HFA] 2 puff INHALATION Q4H PRN PRN #15 g 07/17/20 07/22/20 aspirin 81 mg tablet,delayed 81 mg PO DAILY 07/21/20 07/22/20 release furosemide 20 mg tablet 20 mg PO DAILY #90 tab 07/21/20 07/22/20 guaifenesin 600 mg tablet, 600 mg PO BID PRN tab 07/21/20 07/22/20 extended release 12 hr spironolactone 25 mg tablet 12.5 mg PO DAILY #45 tab 07/21/20 07/22/20 Previous Rx's Medication Instructions Recorded budesonide-formoterol [Symbicort] 2 puff INHALATION BID #10.2 g 07/17/20 levalbuterol tartrate [Xopenex HFA] 2 puff INHALATION Q4H PRN PRN #15 g 07/17/20 furosemide 20 mg tablet 20 mg PO DAILY #90 tab 07/21/20 spironolactone 25 mg tablet 12.5 mg PO DAILY #45 tab 07/21/20 Allergies Allergy/AdvReac Type Severity Reaction Status Date / Time carvedilol Allergy Unverified 07/22/20 18:18 General Stated Complaint: GenMedical SCOTT: 4 Review of Systems All systems reviewed & are unremarkable except as noted in HPI and below Psychiatric Psychiatric: Reports as per HPI, Reports anxiety, Reports irritability, Denies homicidal ideation and Denies suicidal ideation [facility] Medical History Acute myocardial infarction 2012 STEMI Anxiety Asthma BPH (benign prostatic hyperplasia) CAD S/P percutaneous coronary angioplasty Cardiomyopathy CHF (congestive heart failure) Chronic obstructive lung disease Elevated LFTs Elevated troponin History of tobacco use HTN (hypertension) Hx of atrial flutter a/w STEMI in 2012; single episode Hx of tongue cancer 2004; s/p chemo and XRT Hyperlipemia Left knee pain Occlusion of right vertebral artery Oxygen dependent 2L [place] Palliative care patient Pleural effusion, left Psoriasis Pulmonary hypertension Right carotid artery occlusion Surgical History Colonoscopy - MAC (04/03/16) Coronary Stent 2012 EGD - MAC History of total right hip arthroplasty S/P TURP tracheostomy Family History Mother Chronic congestive heart failure Father Personal history of malignant neoplasm Lung Cancer Social History Smoking/Tobacco Use Status: Former Tobacco Use Smoking risk assessment performed?: Yes Alcohol Intake: former Drug use: Never Substance use type: does not use, former substance user Date of last use: 30 years and crack/cocaine Details: No ETOH since 1987. States he does use CBD oil and may have drank some today. 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 Exam Const General: cooperative, comfortable, well developed, well groomed and anxious Nutritional Appearance: average body habitus Orientation: alert, awake and oriented x3 HENMT Head: normal to inspection Resp Effort & Inspection: normal respiratory effort, able to speak in complete sentences and no respiratory distress Auscultation: clear to auscultation bilaterally (Desats quickly on Room air) Cardio Rate: regular rate Rhythm: regular rhythm Heart Sounds: S1 normal and S2 normal GI Inspection: normal to inspection Palpation: soft and nontender Auscultation: normal bowel sounds Psych Appearance: well kempt Speech and Movement: agitated Mood: anxious mood and irritable mood Affect: irritable affect Attitude: cooperative Thought Process: normal Thought Content: normal and suicidality Insight: insight good Judgment: judgment good Course Vital Signs Vital signs: Vital Signs Temperature 37.4 C 07/22/20 18:08 Pulse 88 07/22/20 18:08 Respiratory Rate 14 07/22/20 18:08 Blood Pressure 111/64 07/22/20 18:08 Pulse Oximetry 96 07/22/20 18:08 Temperature 37.4 C 07/22/20 18:08 Temperature Source Skin 07/22/20 18:08 Pulse 88 07/22/20 18:08 Respiratory Rate 18 07/22/20 18:20 Respiratory Effort Non-Labored 07/22/20 18:20 Respiratory Depth Normal 07/22/20 18:20 Respiratory Pattern Normal 07/22/20 18:20 Blood Pressure 111/64 07/22/20 18:08 Blood Pressure Position Supine 07/22/20 18:08 Pulse Oximetry 96 07/22/20 18:08 Oxygen Delivery Method Room Air 07/22/20 18:08 Oxygen Flow Rate 0 07/22/20 18:08 Pain Level 0 07/22/20 18:08
[2020-07-22] MEDS: LORazepam 0.5 MG TAB PO (19:00)
== END 2020-07-22 19:45 | disposition home or self-care (01) ==
PROVIDERS: Emergency Provider Registered Nurse Emergency; PCP Family Medicine
DX: R45.4 Irritability and anger (principal); F41.9 Anxiety disorder, unspecified
CPT/HCPCS: 99283

== ENCOUNTER 2020-07-25 02:19 | Emergency (ER) | payer MEDICARE, MEDICAID, SELFPAY ==
[2020-07-25 02:25] VITALS: BP 154/85; PULSE 82; RESP 14; TEMP 36.7; O2SAT 94
[2020-07-25 03:00] VITALS: BP 141/83; PULSE 74; RESP 19; RESP 20; O2SAT 99
--- NOTE | 2020-07-25 03:02 | ED.GENADUL_ITS ---
Discharge Plan Disposition Patient Disposition: HOME Condition: Good Discharge Details Clinical Impression: Agitation, Medication side effect Primary Care Provider: Magalie Sanchez ED Provider: Mango Dupont Home Meds and New Rx's Prescriptions: Continued guaifenesin [Mucinex] 600 mg tablet extended release 12hr 600 mg PO BID PRNRF: 0 aspirin [Adult Aspirin Regimen] 81 mg tablet,delayed release (DR/EC) 81 mg PO DAILY RF: 0 furosemide 20 mg tablet 20 mg PO DAILY Qty: 90 RF: 3 spironolactone 25 mg tablet 12.5 mg PO DAILY Qty: 45 RF: 6 B-Complex Plus Vit C (calcium) 1 EACH tablet 1 ea PO DAILY RF: 0 cannabidiol 100 mg/mL Solution 600 mg PO DAILY RF: 0 metoprolol succinate 50 mg tablet extended release 24 hr 50 mg PO DAILY RF: 0 levalbuterol tartrate [Xopenex HFA] 45 mcg/actuation Hfa Aerosol Inhaler 2 puff inhalation Q4H PRN PRNQty: 15 RF: 0 multivitamin [Multi-Day] 1 EACH tablet 2 ea PO DAILY RF: 0 vitamin E 400 UNIT capsule 400 unit PO DAILY RF: 0 cholecalciferol (vitamin D3) [Vitamin D3] 1,000 UNIT capsule 5,000 unit PO DAILY RF: 0 Fish Oil 1 EACH capsule 1 ea PO DAILY RF: 0 Sheldon-Mag 1 EACH tablet,chewable 1 ea PO DAILY RF: 0 coenzyme [id number] 1 EACH capsule 1 ea PO DAILY RF: 0 acetaminophen [Mapap Extra Strength] 500 MG tablet 500 mg PO PRN PRNRF: 0 Discontinued budesonide-formoterol [Symbicort] 160-4.5 mcg/actuation Hfa Aerosol Inhaler 2 puff inhalation BID Qty: 10.2 RF: 0 Discharge Instructions Additional Instructions: At this time your neurologic exam is normal, the ultrasound of your lungs shows no effusion or pneumothorax, and I see no clinical signs of stroke. I suspect that your symptoms are are unfortunately a side effect from the Symbicort inhaler that you are taking. In particular I suspect that it is from the steroid component. I think it would be very reasonable to stop taking it for the next week as a trial to see if this improves your symptoms. You have an active and fast-paced mind at baseline, and the additional stimulation from the steroid I fear has made this worse. Please continue to use your Xopenex in the meantime every 4 or 6 hours if needed. Follow-up closely with your family doctor and monitor your symptoms closely. If your symptoms do resolve after stopping this inhaler then really will have likely found the problem. If you notice any worsening of your symptoms, or any new symptoms such as vomiting, diarrhea, fever, chills, shortness of breath, chest pain, numbness, weakness, or fainting , please return immediately to the emergency department for reevaluation. Please follow up with your primary care provider as soon as possible for reassessment and reevaluation. As always, it was a pleasure participating in your medical care today. Referrals: Martha Walker MD [[facility] STAFF PHYSICIAN] - Magalie Sanchez [Primary Care Provider] - Medical Decision Making 75-year-old male with a past medical history of previous coronary artery disease and ME, congestive heart failure, COPD on 2 L of home oxygen at baseline, tobacco abuse, previous laryngeal cancer with radiation, presents today for evaluation of mind racing. Patient was recently admitted and then subsequently discharged just over a week ago. During his admission he had pleural effusions and a very small pneumothorax, both of which resolved. He was transitioned from albuterol to Xopenex and Symbicort. When he started on the Symbicort the patient noted a significant increase in his mental anxiety, stating that he felt that his mind was racing, he was thinking 1,000,000 miles a second, and felt like he just had to move and get things done all the time. He denies any homicidal or suicidal ideations. He states that he regularly struggles with an intense mind at baseline, but this is a new thing. He denies any fever chills or cough or shortness of breath. He denies any chest pain numbness or tingling. He was seen in the emergency department here 2 days ago, evaluation work-up was benign at that time. It was suggested to him that the Symbicort may be a cause of his symptoms. However he has stopped taking it. He presents by EMS tonight for continued symptoms. EMSs initial assessment and vital signs were stable aside from mild hypertension and mild tachycardia both of which have resolved. Patient has no other complaints at this time. He denies any tearing or ripping sensation in his chest. He denies any chest heaviness chest tightness or bandlike sensation around the chest. No other mod ifying factors. Of note the patient has not taken any Xopenex since he was discharged. He has only been taking the Symbicort. Physical exam is notably unremarkable. Lung sounds are clear and at baseline. Oxygenation is good on his home 2 L. Bedside limited ultrasound shows no evidence of pneumothorax, no pleural effusions to speak of. No focal consolidation. The remainder of his exam is otherwise benign. Symptoms at this time are clinically inconsistent with cardiac etiology, dissection, or homicidal or suicidal etiology. He does not appear to be having a panic attack. I suspect his symptoms are secondary to the steroid component of his Symbicort pushing his already active mind just a little too far. It is my recommendation to the patient that he performs a 1 week trial of holding off on the Symbicort. Recommend using the Xopenex as directed and as needed. Discussed the importance of close follow-up and monitoring of his symptoms. No current clinical indication for any other additional work-up or treatment at this time. I have extensively reviewed the treatment plan and discharge instructions with the patient. I have addressed all patient concerns at this time. The patient was made aware of what symptoms to monitor for that would warrant a return to the emergency department. Discussed the plan with the patient, they demonstrate verbal understanding and agreement with our assessment and plan at this time. The documentation in this chart was dictated using [employer] dictation software. Please excuse any dictation errors. HPI General Date/Time Provider Initiated Documentation: 07/25/20 02:34 . HPI Narrative: 75-year-old male with a past medical history of previous coronary artery disease and ME, congestive heart failure, COPD, tobacco abuse, previous laryngeal cancer with radiation, presents today for evaluation of mind racing. Patient was recently admitted and then subsequently discharged just over a week ago. During his admission he had pleural effusions and a very small pneumothorax, both of which resolved. He was transitioned from albuterol to Xopenex and Symbicort. When he started on the Symbicort the patient noted a significant increase in his mental anxiety, stating that he felt that his mind was racing, he was thinking 1,000,000 miles a second, and felt like he just had to move and get things done all the time. He denies any homicidal or suicidal ideations. He states that he regularly struggles with an intense mind at baseline, but this is a new thing. He denies any fever chills or cough or shortness of breath. He denies any chest pain numbness or tingling. He was seen in the emergency department here 2 days ago, evaluation work-up was benign at that time. It was suggested to him that the Symbicort may be a cause of his symptoms. However he has stopped taking it. He presents by EMS tonight for c ontinued symptoms. EMSs initial assessment and vital signs were stable aside from mild hypertension and mild tachycardia both of which have resolved. Patient has no other complaints at this time. He denies any tearing or ripping sensation in his chest. He denies any chest heaviness chest tightness or bandlike sensation around the chest. No other modifying factors. Of note the patient has not taken any Xopenex since he was discharged. He has only been taking the Symbicort. Related Data Home Medications Medication Instructions Recorded Confirmed B-Complex Plus Vit C (calcium) 1 ea PO DAILY 07/11/12 07/22/20 Sheldon-Mag 1 ea PO DAILY 04/02/16 07/22/20 Fish Oil 1 ea PO DAILY 04/02/16 07/22/20 cholecalciferol (vitamin D3) 5,000 unit PO DAILY 04/02/16 07/22/20 [Vitamin D3] coenzyme [id number] E 1 ea PO DAILY 04/02/16 07/22/20 multivitamin [Multi-Day] 2 ea PO DAILY 04/02/16 07/22/20 vitamin E 400 unit PO DAILY 04/02/16 07/22/20 acetaminophen [Mapap Extra 500 mg PO PRN PRN 04/03/16 07/22/20 Strength] cannabidiol 600 mg PO DAILY 01/13/20 07/22/20 metoprolol succinate 50 mg PO DAILY 03/04/20 07/22/20 levalbuterol tartrate [Xopenex HFA] 2 puff INHALATION Q4H PRN PRN #15 g 07/17/20 07/22/20 aspirin 81 mg tablet,delayed 81 mg PO DAILY 07/21/20 07/22/20 release furosemide 20 mg tablet 20 mg PO DAILY #90 tab 07/21/20 07/22/20 guaifenesin 600 mg tablet, 600 mg PO BID PRN tab 07/21/20 07/22/20 extended release 12 hr spironolactone 25 mg tablet 12.5 mg PO DAILY #45 tab 07/21/20 07/22/20 Previous Rx's Medication Instructions Recorded levalbuterol tartrate [Xopenex HFA] 2 puff INHALATION Q4H PRN PRN #15 g 07/17/20 furosemide 20 mg tablet 20 mg PO DAILY #90 tab 07/21/20 spironolactone 25 mg tablet 12.5 mg PO DAILY #45 tab 07/21/20 Allergies Allergy/AdvReac Type Severity Reaction Status Date / Time carvedilol Allergy Unverified 07/22/20 18:18 General Stated Complaint: GenMedical SCOTT: 3 Review of Systems All systems reviewed & are unremarkable except as noted in HPI and below PFSH Medical History Acute myocardial infarction 2012 STEMI Anxiety Asthma BPH (benign prostatic hyperplasia) CAD S/P percutaneous coronary angioplasty Cardiomyopathy CHF (congestive heart failure) Chronic obstructive lung disease Elevated LFTs Elevated troponin History of tobacco use HTN (hypertension) Hx of atrial flutter a/w STEMI in 2012; single episode Hx of tongue cancer 2004; s/p chemo and XRT Hyperlipemia Left knee pain Occlusion of right vertebral artery Oxygen dependent 2L [place] Palliative care patient Pleural effusion, left Psoriasis Pulmonary hypertension Right carotid artery occlusion Surgical History Colonoscopy - MAC (04/03/16) Coronary Stent 2012 EGD - MAC History of total right hip arthroplasty S/P TURP tracheostomy Family History Mother Chronic congestive heart failure Father Personal history of malignant neoplasm Lung Cancer Social History Smoking/Tobacco Use Status: Former Tobacco Use Smoking risk assessment performed?: Yes Alcohol Intake: former Drug use: Never Substance use type: does not use, former substance user Date of last use: 30 years and crack/cocaine Details: No ETOH since 1987. States he does use CBD oil and may have drank some today. 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 3.ENT: Atraumatic external nose and ears. Moist MM. Neck: Symmetric, trachea midline, No thyromegaly. 4.CVS: +S1/S2, No murmurs or gallops. Peripheral pulses 2+ and equal in all extremities. Brisk capillary refill in all extremities. 5.RESP: Unlabored respiratory effort. Clear to auscultation bilaterally. No wheezes rales or rhonchi 6.GI: Soft, Nontender/Nondistended, No hepatosplenomegaly. No guarding or rebound. 7.MSK: Normocephalic/Atraumatic, Extremities w/o deformity or ttp No cyanosis or clubbing, Normal movement of all extremities 8.Skin: Warm, Dry. No rashes or lesions. 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 Sensation grossly intact, no focal neurologic deficits. 10.Psych: (AAO) x3. Appropriate mood and affect Course Vital Signs Vital signs: Vital Signs Temperature 36.7 C 07/25/20 02:25 Pulse 82 07/25/20 02:25 Respiratory Rate 14 07/25/20 02:25 Blood Pressure 154/85 H 07/25/20 02:25 Pulse Oximetry 94 07/25/20 02:25 Temperature 36.7 C 07/25/20 02:25 Temperature Source Skin 07/25/20 02:25 Pulse 82 07/25/20 02:25 Respiratory Rate 14 07/25/20 02:25 Blood Pressure 154/85 H 07/25/20 02:25 Blood Pressure Position Sitting 07/25/20 02:25 Pulse Oximetry 94 07/25/20 02:25 Oxygen Delivery Method Nasal Cannula 07/25/20 02:25 Oxygen Flow Rate 2 07/25/20 02:25 Pain Level 0 07/25/20 02:25
--- NOTE | 2020-07-25 03:58 | NUR.NOTE ---
Nursing Note: Patient currently sleeping, discharge complete, waiting for a call back from [facility] r/t transportation home. Will let patient sleep until then. EMS returned the O2 tank tonight when they brought patient in. Tank was loaned to patient couple nights ago to get home with [facility].
--- NOTE | 2020-07-25 04:39 | NUR.NOTE ---
Nursing Note: Call received from [facility] 45 min. Patient med. list reviewed and he is reading his discharge paperwork. Will let patient borrow O2 tank for ride home but will label it to be returned to the ER LES. Patient was reminded to bring his small O2 tank with him when he goes anywhere.
--- NOTE | 2020-07-25 12:52 | RESPIRATORY ---
07/25/20- Pt just called here to discuss with me his feeling that he is dying . Pt is not SOB and states he knows this is in his head as his head is swirling with thoughts. Pt states he was here last night (07/24/20) and on Saturday (07/22/20) in the ED as he felt he was dying. Pt was Dc'd home which he is quite upset about. He feels he was admittable. This RT reached out to Raven Rodriguez in Care Management who suggested a call to [facility]. This RT called [facility] and spoke with Candy Meneses , Community Health Worker who says she will contact Pt to do an intake on him to see if they could offer hime some services.
== END 2020-07-25 05:50 | disposition home or self-care (01) ==
LOC: ER 04:02
PROVIDERS: Emergency Provider Student in an Organized Health Care Education/Training Program; PCP Family Medicine
DX: R45.1 Restlessness and agitation (principal); T44.5X5A Adverse effect of predominantly beta-adrenoreceptor agonists, initial encounter
CPT/HCPCS: 99284; 99283

== ENCOUNTER 2020-07-31 16:04 | Emergency (ER) | payer MEDICARE, MEDICAID, SELFPAY ==
[2020-07-31] VITALS (55 sets, daily range): BP systolic 98–182; BP diastolic 57–137; PULSE 86–158; RESP 13–28; TEMP 37.1; O2SAT 93–100
--- NOTE | 2020-07-31 15:45 | RT.EKG_ITS ---
APPROVED REPORT Exam: Resting ECG Reason for Exam: altered mental status Patient Location: E HR:102 bpm ECG Measurements Heart Rate 102 AXIS [place] 220 P 92 QRSd 95 QRS 83 QT 325 T -82 QTc 424 Conclusion Sinus tachycardia. Prolonged [place] interval. Left atrial enlargement. LVH with secondary repolarization abnormality...multi-LVH criteria, abnrm ST-T ST depr inferior leads...ST <-0.10mV, II III aVF
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
--- NOTE | 2020-07-31 16:35 | NUR.NOTE ---
Nursing Note: Myrna Denton, neighbor [phone] is concerned with what they can do to help. She also wants to the patient to know that the dog is taken care of. Tori Padron
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
[2020-07-31] MEDS: Lidocaine 2% Jelly 6 ML SYR (16:50)
[2020-07-31] MEDS: Normal Saline 1,000 ML 1000 ML IV (16:59)
[2020-07-31 17:10] LABS: HCO3 (Venous) 43 mmol/L (23-28); O2 Sat (Venous) 46 %; TCO2 (Venous) 39 mmol/L (24-29); pH (Venous) 7.35 (7.31-7.41); pO2 (Venous) 27 mmHg
[2020-07-31 17:11] LABS: Carboxyhemoglobin 1.4 %
[2020-07-31 17:12] LABS: Lactate 1.5 mmol/L (0.6-1.4)
[2020-07-31 17:13] LABS: BE (Venous) > 15 mmol/L (-2-3)
[2020-07-31 17:15] LABS: pCO2 (Venous) 78 mmHg (41-51)
[2020-07-31 17:31] LABS: Ammonia < 10 umol/L (11-32)
[2020-07-31 17:33] LABS: Abs Immature Grans 0.04 10^3/uL (0.0-0.06); Absolute Basophil Count 0.01 10^3/uL (0.0-0.2); Absolute Lymphocyte Count 0.26 10^3/uL (1.2-3.4); Absolute Neutrophil Count 9.61 10^3/uL (1.2-6.7); Basophils % 0.1; HCT 48.9 % (40.0-50.0); HGB 15.2 g/dL (13.5-17.5); Immature Grans % 0.4; Lymphocytes % 2.5; MCHC 31.1 % (32.0-36.0); MCV 99.8 fL (80-95); MPV 9.8 fL (8.0-11.0); Monocytes % 3.9; Neutrophils % 93.1; Nucleated RBC 0 %; Platelet Count 188 10^3/uL (130-400); RDW 12.7 % (11.8-14.1); RDW-SD 47.4 fL; WBC 10.32 10^3/uL (4.4-10.8)
[2020-07-31 17:34] LABS: *AMPHETAMINES SCREEN URINE Negative (Negative); *BARBITURATES SCREEN URINE Negative (Negative); *BENZODIAZEPINES SCREEN URINE Negative (Negative); Cannabinoids THC Negative (Negative); Cocaine Screen,Urine Negative (Negative); METHADONE URINE SCREEN Negative (Negative); OPIATES URINE SCREEN Negative (Negative)
[2020-07-31 17:36] LABS: Tricyclic Antidepressants Negative (Negative)
[2020-07-31 17:39] LABS: Salicylate < 2.8 mg/dL (<2.8)
[2020-07-31 17:39] LABS: Bilirubin Negative (Negative); Blood Negative (Negative); Clarity Clear (Clear); Glucose Negative (Negative); Ketones Negative (Negative); Leukocyte Esterase Negative (Negative); Nitrite Negative (Negative); Specific Gravity >= 1.030 (1.005-1.025); Urobilinogen 0.2 EU/dL (Up TO 0.2); pH 5.5 (5-8)
[2020-07-31 17:42] LABS: Bacteria Negative HPF (Negative); C & S Indicated? No; Casts 3-5 Hyaline LPF (Negative); Crystals Negative HPF (Negative); Epithelial Cells Few HPF (Negative); Mucus Negative (Negative); Other Cells Few Transitional (Negative); RBC Negative HPF (0-2); WBC Negative HPF (0-5)
[2020-07-31 17:45] LABS: ETHANOL BLOOD < 3.0 mg/dL (<3)
[2020-07-31 17:45] LABS: ALT 473 U/L (16-63); AST 407 U/L (15-37); Albumin 3.8 g/dL (3.4-5.0); Alkaline Phosphatase 96 U/L (46-116); Anion Gap 1.8 mmol/L (3-11); BUN 42 mg/dL (7-18); Bilirubin, Total 0.6 mg/dL (0.2-1.0); CO2 40.2 mmol/L (21.0-32.0); CREATININE 1.5 mg/dL (0.70-1.30); Calcium 10.2 mg/dL (8.5-10.1); Chloride 97 mmol/L (98-107); Creatine Kinase 463 U/L (39-308); Estimated GFR 45.75 (mL/min/1.73m2); Glucose 120 mg/dL (74-106); Lipase 74 U/L (73-393); Magnesium 2.3 mg/dL (1.8-2.4); Potassium 5.7 mmol/L (3.5-5.1); Sodium 139 mmol/L (136-145); TSH 1.63 uIU/mL (0.36-3.74); Total Protein 8.2 g/dL (6.4-8.2)
[2020-07-31 17:49] LABS: Troponin I 21.63 ng/mL (<0.06)
[2020-07-31 17:52] LABS: Acetaminophen < 2 ug/mL (10-30)
[2020-07-31] MEDS: Normal Saline - Diluent 50 ML VIAL IV (18:02)
[2020-07-31] MEDS: Omnipaque 350 MG/ML 100 ML BTL IJ (18:03)
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
--- NOTE | 2020-07-31 20:00 | RT.EKG_ITS ---
APPROVED REPORT Exam: Resting ECG Reason for Exam: elevated trop. ams Patient Location: E HR:102 bpm ECG Measurements Heart Rate 102 AXIS MT 206 P 83 QRSd 93 QRS 72 QT 320 T 262 QTc 416 Conclusion Sinus tachycardia...rate> 99 Probable left atrial enlargement...P >50mS, <-0.10mV V1 Left ventricular hypertrophy...multiple LVH criteria Nonspecific T abnormalities, inferior leads...T <-0.10mV, II III aVF
[2020-07-31] MEDS: Insulin REGULAR-Human 100 UNITS/ML UNIT 10 UNITS IV ×2 (20:30→20:34)
[2020-07-31] MEDS: Furosemide 40 MG/4 ML VIAL IVP (20:31)
[2020-07-31] MEDS: Dextrose 50%-Water 25 GM/50 ML SYR IVP (20:35)
[2020-07-31] MEDS: Calcium Gluconate 4.65 MEQ/10 ML VIAL 4.65 MG IVP (20:38)
[2020-07-31 20:41] LABS: NT-proBNP 6384 pg/mL (<300)
[2020-07-31] MEDS: Normal Saline 50 ML 400 ML (20:41)
[2020-07-31 20:46] LABS: Troponin I 27.03 ng/mL (<0.06)
[2020-07-31] MEDS: Aspirin 300 MG SUPP PR (20:48)
== END 2020-07-31 21:15 ==
PROVIDERS: Emergency Provider Physician Assistant; PCP Family Medicine
DX: I21.4 Non-ST elevation (NSTEMI) myocardial infarction (principal); I63.9 Cerebral infarction, unspecified; E87.5 Hyperkalemia; R41.0 Disorientation, unspecified; I11.0 Hypertensive heart disease with heart failure; I50.9 Heart failure, unspecified; Z66 Do not resuscitate
CPT/HCPCS: 36415; 36416; 51702; 74177; 80053; 80307; 82375; 82550; 82805; 82962; 83690; 87040; 93005; 96361; 96374; 96375; 99291; 70450; 71260; 72125; 80320; 80329; 81003; 81015; 82140; 83605; 83735; 83880; 84132; 84443; 84484; 85025; 93010; J0610; J1940; J3490